=== PATIENT | female | born 1945 | race Caucasian/White ===

== ENCOUNTER 2020-04-10 08:02 | Outpatient (CLI) | payer MEDICARE, SELFPAY ==
--- NOTE | ~2020-04-10 | MM_ITS ---
EXAMINATION: MM screening [facility] BI w [facility] HISTORY: Screening mammogram. History of left breast cancer in 2000. TECHNIQUE: Craniocaudal and mediolateral oblique 3-D tomosynthesis images were obtained and synthetic 2-D images were generated. CAD analysis was submitted and interpreted. COMPARISON: 03/08/2015 BREAST PARENCHYMAL COMPOSITION: There are scattered areas of fibroglandular density. FINDINGS: Stable architectural distortion in the upper outer quadrant of the left breast. There is a new focal asymmetry in the outer aspect of the right breast posteriorly. IMPRESSION: 1. New focal right breast asymmetry laterally on CC view. 2. Additional mammographic views and possible breast ultrasound are recommended. BI-RADS Category 0: Incomplete: Needs additional imaging evaluation. Reviewed, dictated and finalized at location A. IMPRESSION: 1. New focal right breast asymmetry laterally on CC view. 2. Additional mammographic views and possible breast ultrasound are recommended . BI-RADS Category 0: Incomplete: Needs additional imaging evaluation.
== END 2020-04-10 08:03 | disposition home or self-care (01) ==
PROVIDERS: Visit Provider Internal Medicine Hematology & Oncology
DX: Z12.31 Encounter for screening mammogram for malignant neoplasm of breast (principal); R92.8 Other abnormal and inconclusive findings on diagnostic imaging of breast
CPT/HCPCS: 77063; 77067

== ENCOUNTER 2020-04-27 08:58 | Outpatient (CLI) | payer MEDICARE, SELFPAY ==
[2020-04-27 09:28] LABS: Basophils Percent Auto 0.4 % (0.2-1.2); Eosinophils Absolute Auto 0.2 K/mm3 (0-0.3); Eosinophils Percent Auto 2.9 % (0-4.4); Hematocrit 33.4 % (37.0-47.0); Hemoglobin 10.7 g/dL (12.0-15.0); Immature Granulocyte Absolute 0.02 K/mm3 (0.00-0.031); Immature Granulocyte Percent A 0.4 % (0-0.5); Lymphocytes Absolute Auto 1.71 K/mm3 (0.9-3.2); Lymphocytes Percent Auto 33.1 % (18.3-44.2); Mean Corpuscular Volume 96.8 fl (80-100); Mean Platelet Volume 9.3 fl (7.4-10.4); Monocytes Absolute Auto 0.4 K/mm3 (0.1-0.6); Monocytes Percent Auto 8.5 % (2.6-8.5); Neutrophils Absolute Auto 2.8 K/mm3 (1.3-6.7); Neutrophils Percent Auto 54.7 % (45.5-73.1); Platelet Count Result 265 k/mm3 (150-375); Red Blood Count 3.45 M/mm3 (4.2-5.4); Red Cell Distribution Width 12.4 % (11.5-14.5); White Blood Count 5.2 K/mm3 (4.5-10.0)
[2020-04-27 12:26] LABS: Cholesterol 168 mg/dL (0-200); HDL Direct 46 mg/dL; Iron 72 ug/dL (37-170); Triglycerides 114 mg/dL (<150)
[2020-04-27 12:29] LABS: Alanine Aminotransferase 21 U/L (4-35); Albumin Level 4.5 g/dL (3.5-5.1); Alkaline Phosphatase 107 U/L (38-126); Aspartate Amino Transferase 24 U/L (14-36); Bilirubin,Total 0.4 mg/dL (0.2-1.3); Blood Urea Nitrogen 17 mg/dL (7-17); Calcium 9.1 mg/dL (8.4-10.2); Carbon Dioxide 25 mmol/L (22-30); Chloride 104 mmol/L (98-107); Estimated Glomerular Filt Rate 54; Glucose 97 mg/dL (65-105); Potassium 4.2 mmol/L (3.4-5.0); Sodium 138 mmol/L (137-145)
[2020-04-27 12:38] LABS: LDL Cholesterol Direct 90 mg/dL
[2020-04-27 12:43] LABS: Percent Iron Saturation 22 % (20-50)
[2020-04-27 12:55] LABS: Free T4 Free Thyroxine 1.07 ng/mL (0.78-2.19)
[2020-04-27 12:59] LABS: Thyroid Stimulating Hormone 0.066 uIU/mL (0.465-4.680)
[2020-04-27 13:44] LABS: Folic Acid > 20.0 ng/mL (2.76->20); Vitamin B12 > 1000.0 pg/mL (239-931)
[2020-04-30 06:44] LABS: CA 27.29 21 U/mL (<38)
== END 2020-04-27 08:59 | disposition home or self-care (01) ==
PROVIDERS: Visit Provider Internal Medicine Hematology & Oncology
DX: C50.912 Malignant neoplasm of unspecified site of left female breast (principal); I82.4Y9 Acute embolism and thrombosis of unspecified deep veins of unspecified proximal lower extremity; D50.9 Iron deficiency anemia, unspecified; I10 Essential (primary) hypertension; E78.5 Hyperlipidemia, unspecified
CPT/HCPCS: 36415; 80053; 80061; 82607; 82728; 82746; 83540; 83550; 84439; 84443; 85025; 86300

== ENCOUNTER 2020-05-25 13:20 | Outpatient (CLI) | payer MEDICARE, SELFPAY ==
--- NOTE | ~2020-05-25 | MMUS_ITS ---
EXAMINATION: MM diagnostic mammo unilat RT, US breast RT limited HISTORY: Follow-up right breast asymmetries TECHNIQUE: Additional 3-D tomosynthesis images of the right breast were performed and synthetic 2-D i mages were generated. CAD analysis was submitted and interpreted. High resolution right breast ultras ound was performed. COMPARISON: Comparison to multiple prior studies sequentially, with oldest reviewed study dated 03/20. BREAST PARENCHYMAL COMPOSITION: Breast composed of scattered areas of fibroglandular density FINDINGS: MAMMOGRAPHIC FINDINGS: There are multiple persistent masses in the lateral aspect of the right breast which are partially ob scured by dense fibroglandular content. These masses are relatively radiolucent some which have fatty hilum centrally, most likely benign. ULTRASOUND: Right breast ultrasound: There are multiple simple and complicated cysts of the right breast. At 9:00, 4 cm from the nipple, t here is an oval hypoechoic mass with parallel orientation and echogenic hilum, most likely benign int ramammary lymph node measuring 7 mm. At 9:00, 2 cm from the nipple, there is an irregular shaped hypo echoic mass with antiparallel configuration and posterior shadowing. No internal vascularity. At 10:0 0, 4 cm from the nipple, there is an oval hypoechoic mass measuring 2 mm, likely benign. At 10:00, 4 cm from the nipple there is a 4 mm intramammary lymph node. At 12:00, 3 cm from the nipple, there are 2 adjacent cysts, largest measuring 6 mm. IMPRESSION: 1. Irregular shaped hypoechoic mass of the right breast at 9:00, 2 cm from the nipple with antiparall el orientation and posterior shadowing. Ultrasound-guided biopsy recommended. BI-RADS CATEGORY 4-SUSPICIOUS ABNORMALITY Reviewed, dictated and finalized at location A. IMPRESSION: 1. Irregular shaped hypoechoic mass of the right breast at 9:00, 2 cm from the nipple with antiparallel orientation and posterior shadowing. Ultrasound-guided biopsy recommended. BI-RADS CATEGORY 4-SUSPICIOUS ABNORMALITY
== END 2020-05-25 13:21 | disposition home or self-care (01) ==
PROVIDERS: Visit Provider Internal Medicine Hematology & Oncology
DX: R92.8 Other abnormal and inconclusive findings on diagnostic imaging of breast (principal)
CPT/HCPCS: 76642; 77065

== ENCOUNTER 2020-06-01 09:01 | Outpatient (CLI) | payer MEDICARE, SELFPAY ==
--- NOTE | ~2020-06-01 | US_ITS ---
EXAMINATION: US GUIDED NEEDLE BIOPSY DATE: 06/01/2020 10:55 CDT INDICATION: Irregular hypoechoic mass of right breast at 9:00 2 cm from nipple TECHNIQUE AND FINDINGS: The risks and potential benefits of the procedure were discussed with the patient, and written inform ed consent was obtained. Timeout procedure was performed. After sterile preparation of the right jacqueline st, 1% lidocaine was utilized for local anesthesia. A 14G spring-loaded biopsy gun needle was advanced to the edge of the region of interest from a later al medial approach utilizing sonographic guidance. A total of 2 tissue core samples were obtained th rough the lesion. An Inrad tissue marker clip was then placed at the biopsy site. Hemostasis was ach ieved by manual compression. A sterile bandage was applied. The patient tolerated procedure well and there was no evidence of immediate complication. The patien t was given verbal instructions prior to departing from the department. A two view mammogram was perf ormed to document tissue marker clip placement. The tissue samples were submitted to surgical patholo gy for histologic analysis. IMPRESSION: 1. Successful ultrasound guided biopsy of right 9:00 breast mass with biopsy marker placement. Jones montes refer to pathology report for histologic analysis. Reviewed, dictated and finalized at Location A. Reviewed, dictated and finalized at location A. IMPRESSION: 1. Successful ultrasound guided biopsy of right 9:00 breast mass with biopsy m arker placement. Please refer to pathology report for histologic analysis.
--- NOTE | ~2020-06-01 | MM_ITS ---
MM post biopsy invasive RT DATE: 06/01/2020 10:28 INDICATION: Post ultrasound-guided biopsy right mammogram TECHNIQUE: Digital ML and cc views of right breast COMPARISON: 06/01/2020 right ultrasound-guided breast biopsy FINDINGS: A radiopaque biopsy marker is present in the mid lateral subareolar area at approximately 9 :00 position IMPRESSION: Status post ultrasound-guided biopsy at 9:00 Reviewed, dictated and finalized at Location A. Reviewed, dictated and finalized at location A.
== END 2020-06-01 09:02 | disposition home or self-care (01) ==
PROVIDERS: Visit Provider Internal Medicine Hematology & Oncology
DX: R92.8 Other abnormal and inconclusive findings on diagnostic imaging of breast (principal)
CPT/HCPCS: 19083; 88305

== ENCOUNTER 2020-08-07 10:02 | Outpatient (CLI) | payer MEDICARE, SELFPAY ==
--- NOTE | ~2020-08-07 | XR_ITS ---
EXAMINATION: XR chest 2V DATE: 08/07/2020 11:42 INDICATION: Preoperative evaluation with risk factor of hypertension. Gastroesophageal reflux disease .. TECHNIQUE: PA and lateral views of the chest were obtained. COMPARISON: None FINDINGS: The lungs are clear with no focal airspace opacities, pulmonary edema, pleural effusion or pneumothor ax. The cardiomediastinal silhouette is normal. Cholecystectomy clips in right upper quadrant. Left b reast is smaller than the right suggesting prior excisional biopsy with multiple surgical clips at th e left axilla consistent with associated axillary lymph node dissection. Mild scattered degenerative skeletal changes. IMPRESSION: 1. No acute cardiopulmonary disease. Reviewed, dictated and finalized at location A.
[2020-08-07 11:43] LABS: Basophils Percent Auto 0.1 % (0.2-1.2); Eosinophils Absolute Auto 0.1 K/mm3 (0-0.3); Eosinophils Percent Auto 0.8 % (0-4.4); Hematocrit 34.6 % (37.0-47.0); Hemoglobin 11.2 g/dL (12.0-15.0); Immature Granulocyte Absolute 0.03 K/mm3 (0.00-0.031); Immature Granulocyte Percent A 0.4 % (0-0.5); Lymphocytes Absolute Auto 1.79 K/mm3 (0.9-3.2); Mean Corpuscular HGB Conc 32.4 g/dl (32-36); Mean Corpuscular Hemoglobin 31.6 pg (26-34); Mean Corpuscular Volume 97.7 fl (80-100); Mean Platelet Volume 9.4 fl (7.4-10.4); Monocytes Absolute Auto 0.5 K/mm3 (0.1-0.6); Monocytes Percent Auto 7.3 % (2.6-8.5); Neutrophils Absolute Auto 4.7 K/mm3 (1.3-6.7); Neutrophils Percent Auto 66.4 % (45.5-73.1); Platelet Count Result 285 k/mm3 (150-375); Red Blood Count 3.54 M/mm3 (4.2-5.4); White Blood Count 7.2 K/mm3 (4.5-10.0)
[2020-08-07 11:54] LABS: Albumin Level 4.8 g/dL (3.5-5.1); Anion Gap 11 mmol/L (8-16); Blood Urea Nitrogen 14 mg/dL (7-17); Calcium 9.7 mg/dL (8.4-10.2); Carbon Dioxide 29 mmol/L (22-30); Chloride 99 mmol/L (98-107); Estimated Glomerular Filt Rate 48; Glucose 100 mg/dL (65-105); Sodium 139 mmol/L (137-145)
[2020-08-07 12:11] LABS: Hemoglobin A1C 5.6 % (<5.7)
[2020-08-07 12:37] LABS: Urine Cotinine NEGATIVE
== END 2020-08-07 10:03 | disposition home or self-care (01) ==
LOC: ANHSURGERY 10:04
PROVIDERS: Visit Provider Orthopaedic Surgery
DX: Z01.812 Encounter for preprocedural laboratory examination (principal); Z01.811 Encounter for preprocedural respiratory examination; M16.11 Unilateral primary osteoarthritis, right hip; Z85.3 Personal history of malignant neoplasm of breast
CPT/HCPCS: 71046; 80048; 80307; 82040; 83036; 85025; 87070

== ENCOUNTER 2020-08-21 01:23 | Outpatient (CLI) | payer MEDICARE, SELFPAY ==
[2020-08-21 17:41] LABS: SARS-CoV-2 RNA PCR Negative
== END 2020-08-21 01:24 | disposition home or self-care (01) ==
LOC: ANHCOVIDDT 01:23
PROVIDERS: Visit Provider Orthopaedic Surgery
DX: Z01.812 Encounter for preprocedural laboratory examination (principal); Z20.828 Contact with and (suspected) exposure to other viral communicable diseases
CPT/HCPCS: 87635; C9803; U0003

== ENCOUNTER 2020-08-23 01:52 | Day surgery (SDC) | payer MEDICARE, SELFPAY ==
[2020-08-07 10:09] VITALS: BMI 29.3
[2020-08-07 11:05] VITALS: BP 138/66; PULSE 83; RESP 16; TEMP 36.8; O2SAT 98
--- NOTE | 2020-08-21 13:11 | PM.IMHP ---
H&P: HPI History of Present Illness Date/Time: 08/21/20 13:11 <ARTEMIO Regan - Last Filed: 08/21/20 13:23> Chief complaint: OA Right Hip <ARTEMIO Regan - Last Filed: 08/21/20 13:23> Narrative: Rosaura Godoy is a 74 year old female od Dr Ball who presents today for an anterior right total hip arthroplasty. She has been having progressive worsening pain and symptoms coming severely right hip. Pain is predominantly in her groin well the anterior lateral. This point she is not taking any anti-inflammatories. She has history of Crohn's disease has also been told past that she has chronic kidney disease and therefore avoids anti-inflammatories. She has reached a point where she is miserable on a daily basis and feels she would rather proceed with total hip arthroplasty at this point rather continue nonsurgical options. <ARTEMIO Regan - Last Filed: 08/21/20 13:23> Review of Systems Review of Systems: All systems reviewed & are unremarkable except as noted in HPI and below <ARTEMIO Regan - Last Filed: 08/21/20 13:23> [facility] Past Medical History Medical History: Medical History (Updated 08/22/20 @ 13:31 by Max Balbuena MD) Anemia Arthritis BMI 27.0-27.9,adult BMI 28.0-28.9,adult Crohn's disease Family hx of colon cancer GERD (gastroesophageal reflux disease) H/O blood clots History of Mohs micrographic surgery for skin cancer Hx of adenomatous colonic polyps Hx of breast cancer Hx of skin malignancy Hyperlipidemia Hypertension Osteoarthritis of right hip Osteopenia <ARTEMIO Regan - Last Filed: 08/21/20 13:23> Surgical History Surgical History: Surgical History History of lumpectomy of left breast History of tonsillectomy and adenoidectomy Hx of cholecystectomy Hx of colonoscopy <ARTEMIO Regan - Last Filed: 08/21/20 13:23> Family History Family History: Family History Mother Heart disease Father Hypertension Cancer Grandparent Diabetes mellitus Heart disease <ARTEMIO Regan - Last Filed: 08/21/20 13:23> Social History Social History: Social History Smoking status: Never smoker Additional smoking assessment comments: DENIES ANY FORM OF TOBACCO/NICOTINE USE Alcohol intake: current Substance use: never Living arrangements: with family Spiritual care concerns: No <ARTEMIO Regan - Last Filed: 08/21/20 13:23> Meds Home Medications and Allergies Home medications: Home Medications Medication Instructions Recorded Confirmed Type acidophilus-pectin, citrus 1 cap PO HS 10/25/19 08/23/20 History [Acidophilus Probiotic] aspirin [Aspir-81] 81 mg PO HS 10/25/19 08/23/20 History atorvastatin 40 mg PO DAILY 10/25/19 08/23/20 History biotin 10,000 mcg PO DAILY 10/25/19 08/23/20 History coenzyme Q10 [Co Q-10] 200 mg PO DAILY 10/25/19 08/23/20 History dexlansoprazole [Dexilant] 60 mg PO DAILY 10/25/19 08/23/20 History glucos sul 8LDs-zrv-npnzw-C-Mn 1 cap PO BID 10/25/19 08/23/20 History [Glucosamine Chondroitin] ibzyzsps-ahi-fitw-FA-lutein 1 tablet PO DAILY 10/25/19 08/23/20 History [Multivitamin Women 50 Plus] psyllium husk [Fiber-Caps 0.52 g PO DAILY MDD 5 10/25/19 08/23/20 History (psyllium husk)] valsartan-hydrochlorothiazide 1 tablet PO DAILY 10/25/19 08/23/20 History fluticasone propionate 50 1 spray NASAL .prn PRN ml 03/23/20 08/23/20 History mcg/actuation nasal spray,suspension <ARTEMIO Regan - Last Filed: 08/21/20 13:23> Allergies/Adverse reactions: Allergies Allergy/AdvReac Type Severity Reaction Status Date / Time ibuprofen Allergy Mild CROHN'S Verified 08/23/20 10:24 FLARE UP naproxen [From Aleve] Allergy Mild CROHN'S Verified 08/23/20 10:24 FLARE UP adhesive tape Allergy Unknown RASH
--- NOTE | 2020-08-22 13:30 | WPDANESEPPF ---
Anes - Initial Pre Proc Eval Procedure: Operation Date: 08/23/20 12:00 Proposed Procedures p Right Total Hip Arthroplasty, Direct Anterior Approach - Weston Degroot MD Date/Time: 08/22/20 13:30 Surgeon: Weston Degroot MD Pre Op Diagnosis: OA Right Hip Patient Data Age: 74 Gender: F Height: 1.55 m Weight: 70.5 kg Last Vital Signs Temp 36.8 C 08/07/20 11:05 Pulse 83 08/07/20 11:05 Resp 16 08/07/20 11:05 BP 138/66 08/07/20 11:05 Pulse Ox 98 08/07/20 11:05 Allergies Allergy/AdvReac Type Severity Reaction Status Date / Time ibuprofen Allergy Mild CROHN'S Verified 08/23/20 10:24 FLARE UP naproxen [From Aleve] Allergy Mild CROHN'S Verified 08/23/20 10:24 FLARE UP adhesive tape Allergy Unknown RASH Verified 08/23/20 10:24 bacitracin Allergy Unknown RASH Verified 08/23/20 10:24 codeine Allergy Unknown FACIAL Verified 08/23/20 10:24 SWELLING gramicidin D Allergy Unknown RASH Verified 08/23/20 10:24 neomycin Allergy Unknown Rash Verified 08/23/20 10:24 [From Neosporin ([id number])] polymyxin B Allergy Unknown RASH Verified 08/23/20 10:24 Home Medications Medication Instructions Recorded Confirmed Type acidophilus-pectin, citrus 1 cap PO HS 10/25/19 08/23/20 History [Acidophilus Probiotic] aspirin [Aspir-81] 81 mg PO HS 10/25/19 08/23/20 History atorvastatin 40 mg PO DAILY 10/25/19 08/23/20 History biotin 10,000 mcg PO DAILY 10/25/19 08/23/20 History coenzyme Q10 [Co Q-10] 200 mg PO DAILY 10/25/19 08/23/20 History dexlansoprazole [Dexilant] 60 mg PO DAILY 10/25/19 08/23/20 History glucos sul 4MJo-whn-evtor-C-Mn 1 cap PO BID 10/25/19 08/23/20 History [Glucosamine Chondroitin] rslivdcv-mbl-ctqu-FA-lutein 1 tablet PO DAILY 10/25/19 08/23/20 History [Multivitamin Women 50 Plus] psyllium husk [Fiber-Caps 0.52 g PO DAILY MDD 5 10/25/19 08/23/20 History (psyllium husk)] valsartan-hydrochlorothiazide 1 tablet PO DAILY 10/25/19 08/23/20 History fluticasone propionate 50 1 spray NASAL .prn PRN ml 03/23/20 08/23/20 History mcg/actuation nasal spray,suspension Other Studies: Patient did have a stress test done early August which showed no diagnostic ST changes normal myocardial perfusion injection fraction of 74% she did have an echo done which showed normal left ventricular systolic function, ejection fraction was rated 65%. Her nasal swab was negative. Her creatinine preoperatively is 1.1 missed her Chem panel is within normal limits. Hemoglobin is 11.2 and platelets were 285 Patient hx anesthesia problems: none Family hx anesthesia problems: none PMFSH Past Medical History Medical History (Updated 08/22/20 @ 13:31 by Max Balbuena MD) Anemia Arthritis BMI 27.0-27.9,adult BMI 28.0-28.9,adult Crohn's disease Family hx of colon cancer GERD (gastroesophageal reflux disease) H/O blood clots History of Mohs micrographic surgery for skin cancer Hx of adenomatous colonic polyps Hx of breast cancer Hx of skin malignancy Hyperlipidemia Hypertension Osteoarthritis of right hip Osteopenia Surgical History Surgical History History of lumpectomy of left breast History of tonsillectomy and adenoidectomy Hx of cholecystectomy Hx of colonoscopy Family History Family History Mother Heart disease Father Hypertension Cancer Grandparent Diabetes mellitus Heart disease Social History Social History Smoking status: Never smoker Additional smoking assessment comments: DENIES ANY FORM OF TOBACCO/NICOTINE USE Alcohol intake: current Substance use: never Living arrangements: with family Spiritual care concerns: No Anes - Eval Final PreProcedure Day of Procedure 08/22/20 13:30 Patient weight: obese Heart: regular rate and rhythm Lungs: clear to auscultation and nor
[2020-08-23] VITALS (9 sets, daily range): BP systolic 100–159; BP diastolic 41–74; PULSE 52–95; RESP 10–18; TEMP 36.1–36.8; O2SAT 92–100; BMI 29.6
--- NOTE | ~2020-08-23 | XR_ITS ---
EXAMINATION: XR surgery orthopedic DATE: 08/23/2020 15:36 INDICATION: Right hip arthroplasty TECHNIQUE: 3 views right. 49 seconds of fluoroscopy. 2 fluoroscopic images. FINDINGS: There is a right total hip arthroplasty in expected position. Subcutaneous gas with soft t issue swelling are consistent with recent surgery. IMPRESSION: 1. Recent right total hip arthroplasty. Reviewed, dictated and finalized at location B.
--- NOTE | ~2020-08-23 | XR_ITS ---
EXAMINATION: XR hip RT 1V w AP pelvis DATE: 08/23/2020 15:51 INDICATION: Right hip arthroplasty. Postop. TECHNIQUE: An anteroposterior view of the pelvis and single view of right hip were obtained. COMPARISON: Pelvis and right hip radiographs 03/23/2020 FINDINGS: There is a total right hip arthroplasty in near-anatomic alignment. No fracture. There is m oderate left hip osteoarthritis. A surgical clip overlies the pelvis. There is gas in the soft tissue s around right hip, consistent with recent surgery. A surgical drain is noted. IMPRESSION: 1. Total right hip arthroplasty in near-anatomic alignment. 2. Moderate left hip osteoarthritis. Reviewed, dictated and finalized at location A.
[2020-08-23] MEDS: LACTATED RINGERS 1,000 ML 30 ML IV CONT ×2 (10:52→15:53)
[2020-08-23] MEDS: TRANEXAMIC ACID 1,000MG/ISO100 1,000 MG/100 ML BAG 200 MG IVPB (11:07)
[2020-08-23] MEDS: ACETAMINOPHEN 500 MG TABLET 1000 MG PO ×2 (11:08→17:36)
--- NOTE | 2020-08-23 12:01 | WPDHPUPDATE1 ---
History and Physical Update Update Date/Time: 08/23/20 12:01 History and Physical has been reviewed, including an updated exam of the patient. There are NO changes in the patient's condition. Risks, benefits, and alternatives have been discussed and questions answered. Patient agrees to proceed with procedure.
[2020-08-23] MEDS: ceFAZolin 2 GM/D5W 50 ML 2 GM/50 ML BAG IVPB (12:07)
[2020-08-23] MEDS: ceFAZolin SODIUM 1 GM VIAL 3 GM IRRIGATION (12:55)
[2020-08-23] MEDS: KETOROLAC 15 MG/ML VIAL (*BKC) IV PUSH (15:20)
[2020-08-23] MEDS: ceFAZolin SODIUM 1 GM VIAL IV PUSH (15:21)
--- NOTE | 2020-08-23 15:32 | PM.PROC ---
Procedure Note - Detailed Date of procedure: 08/23/20 Pre-op diagnosis: OA Right Hip Procedure performed: Direct anterior approach right total hip arthroplasty Description of procedure: patient was brought to the operating room and general anesthesia was administered. She received 2 g of Ancef weight based vancomycin and 1 g of tranexamic acid preoperatively. Soft roll was placed on the feet and the boots applied and SCDs applied to the legs and [facility] hip prepped draped usual fashion. A 10 cm longitudinal incision was made over the anterolateral hip. Dissection was carried down to the subcutaneous fat to the fascia over the tensor fascia brett which was longitudinally incised and elevated off the anterior 1/2 the TFL muscle. Interval between TFL and rectus femoris was developed. Branching vessels of ascending branch of lateral spinal circumflex vessels were isolated and ligated with suture and divided. The capsule was isolated and a capsulotomy performed. Femoral neck osteotomy was made according to preoperative templating. The femoral head measured 47 mm in diameter. The acetabulum was exposed labrum excised. The leg was a externally rotated extended and we incised the interval between the piriformis tendon and the conjoined tendon which allowed the piriformis to flip posteriorly and the conjoined tendon Tworecess somewhat. the tip of the lateral capsular flap was excised. With the leg back in the horizontal position the acetabulum was exposed. We medialized with a 44 Reamer and we reamed up to 47 mm which did not quite get peripheral contact. The 49 mm Reamer did achieve peripheral contact. There were no defects in the rim of the acetabulum and we had complete coverage of the trial. We chose the 50 mm pinnacle shell and try to impact this at 40? of abduction but I could not get it to seat the last 4 or 5 mm. Therefore we reamed the acetabulum gently with the 50 Reamer not quite achieving full seating. We then impacted the 50 mm shell again after irrigation of the shell and removal of debris and this time it sat fully with an excellent press fit. It was placed at 40? of abduction and anteversion such that the anterior shell was a mm under the anterior wall the posterior shell 2 mm proud. A single screw was placed into the ilium with good purchase and the 32 mm inner diameter liner was fully seated. Next the leg was externally rotated extended and we broached up to a size 3 Actis. we trialed with the standard neck +5 according to the preoperative template and this gave us leg lengths that were approximately equal or matching our preoperative plan to lengthen about 3 mm or 4 mm. She had [id number] superior medial osteoarthritis. We found acceptable stability also. We calcar planed to this level and then carefully inspected the stability of the broach and there was a little wiggle. We could see on the intraoperative x-ray also that we could go up 1 size so we went up to the size 4 and this was seated to the level of the neck cut. The 4 has a neck that has 2 mm greater offset and 1 mm greater height and on trialing with a +5 our offset looked good but we were a little bit high I felt and a little bit tighter than necessary. We countersunk another 2 mm and this matched our preoperative plan better on x-ray and gave us appropriate stability with ample shock but good stability. I felt that the +1 would be too loose. Satisfied with this we calcar planed again and placed the size 4 standard offset neck as stem which came to rest on the calcar with full seating and excellent torsional stability. We cleaned and dried the trunnion and impacted the 5 mm x 32 mm ceramic head. The wound was irrigated with antibiotic solution hip was reduced stability and soft tissue tension reassessed and found to be appropriate. The anterior capsular flap was allowed to rest in situ. The fascia over the tensor fascia brett repaired wi
[2020-08-23] MEDS: fentaNYL CITRATE INJ (*CRX) 100 MCG/2 ML VIAL 25 MCG IV PUSH ×3 (16:02→16:26)
--- NOTE | 2020-08-23 17:00 | PC.NURSE ---
This patient, Rosaura Godoy, was admitted to 2 Medical Room 241-01. Patient/family oriented to hospital policies and general routines including ID bracelet, bed and alarms, visiting hours, pain management, procedures, bathroom and other care routines, personal items, smoking policy, room service/diet, and visiting hours. Information on how to activate the Rapid Response Team has been discussed. Patient/Family are encouraged to report perceived risks to care and to ask questions if they do not understand what they are told or what they should do.
--- NOTE | 2020-08-23 17:28 | PC.NURSE ---
Call to Dr. Degroot in regards to the patient having an allergy to Codeine, which is prompting a warning for giving the patient her scheduled Oxycodone. This nurse informed Dr. Degroot that the patient states she has taken Oxycodone before with no issues but this nurse is still required to contact the prescribing physician to requests an approval to continue with the medication. Per Dr. Degroot okay to go ahead and give the medication to the patient and monitor for any signs of allergic reaction.
[2020-08-23] MEDS: oxyCODONE HCL (*CRX) 2.5 MG TAB IR PO ×2 (17:34→20:40)
[2020-08-23] MEDS: ONDANSETRON INJ 4 MG/2 ML VIAL IV PUSH (18:09)
--- NOTE | 2020-08-23 20:30 | WPDCN ---
Assessment and Plan Assessment and plan (1) Arthritis of right hip: Code(s): M16.11 - Unilateral primary osteoarthritis, right hip Status: Acute (2) Hypertension: Code(s): I10 - Essential (primary) hypertension Status: Acute (3) Hyperlipidemia: Code(s): E78.5 - Hyperlipidemia, unspecified Status: Acute (4) History of DVT of lower extremity: Code(s): Z86.718 - Personal history of other venous thrombosis and embolism Status: Acute (5) Gastroesophageal reflux disease: Code(s): K21.9 - Gastro-esophageal reflux disease without esophagitis Status: Acute Additional Plan Postoperative day 0, status post right total hip arthroplasty for right hip osteoarthritis. Wound care, pain control, and DVT prophylaxis will be deferred to the primary service. It is noted that she does have a prior history of DVT but that was around the time that she was diagnosed with breast cancer. Postoperative nausea and dry heaves have improved; antiemetics are available. Blood pressures were reviewed and they are reasonably well controlled. Her home medications will be reviewed and resumed as appropriate. Check hemoglobin and hematocrit in a.m. Thank you for allowing us to participate in this patient's care. Please do not hesitate to contact us with any questions. We will follow with you. Supervising physician for this medical consultation is Dr. Sukhdev Gore HPI Data of Consult Date/Time: 08/23/20 20:30 Requesting Physician: Weston Degroot MD Primary Care Provider: Amanda Ball Consult Narrative Narrative: Rosaura Godoy is a pleasant 74-year-old female whom the hospitalist service has been consulted for management of her medical conditions postoperatively. She has had longstanding pain in her right hip, not amenable to conservative outpatient treatment, and thus she elected for replacement today. Her surgery was performed under general anesthesia with no immediate complications documented and an estimated blood loss of 150 mL. She reports postoperative nausea and dry heaves and has not had much in the way of oral intake however she has been trying to drink some water. She has only mild discomfort in the right hip but nothing significant or unmanageable. She denies paresthesias, skin color, and temperature changes distal to the surgical site. She also denies postoperative fever, chills, chest pain, and shortness of breath. Her medical history significant for hypertension which she states is well controlled on her home medications. She is on also on atorvastatin for hyperlipidemia. She was diagnosed with Crohn's disease in mid life, and has not had a flare for about 20 years or more. She has a history of DVT in the left lower extremity in 2000, around the time she was diagnosed with left-sided breast cancer. No recurrence of DVT or cancer since that time. Review of Systems Review of Systems: Narrative: Twelve systems were reviewed with pertinent positives and negatives as per HPI. She wears corrective lenses. No fever, chills, or sweats. No recent cold or flu symptoms. She denies exposure to those positive for COVID-19. No chest pain or shortness of breath. She has occasional diarrhea. No constipation. No dysuria. Except as documented, all other systems were reviewed and are negative. [facility] Past Medical History Medical History (Updated 08/23/20 @ 20:57 by Reene Palafox PA-C) Anemia Arthritis Basal cell carcinoma of skin Crohn's disease Gastroesophageal reflux disease History of adenomatous polyp of colon History of left breast cancer (~1999) Status post lumpectomy, chemotherapy, and radiation. Hyperlipidemia Hypertension Left leg DVT (~2000) Osteoarthritis of right hip Osteopenia Surgical History Surgical History (Updated 08/23/20 @ 20:50 by Renee Palafox PA-C) History of cholecystectomy History of colonoscopy History of lumpectomy of left breas
[2020-08-23] MEDS: FAMOTIDINE 20 MG TABLET PO (20:40)
[2020-08-24] VITALS: BP 117/48; PULSE 70; RESP 18; TEMP 37.3; O2SAT 93
[2020-08-24] MEDS: ACETAMINOPHEN 500 MG TABLET 1000 MG PO ×4 (00:58→16:37)
[2020-08-24] MEDS: oxyCODONE HCL (*CRX) 2.5 MG TAB IR PO ×5 (00:58→16:37)
[2020-08-24 04:00] VITALS: BP 118/73; PULSE 63; RESP 20; TEMP 37.6; O2SAT 95
[2020-08-24 05:35] LABS: Hematocrit 25.5 % (37.0-47.0); Hemoglobin 8.2 g/dL (12.0-15.0); Immature Granulocyte Absolute 0.05 K/mm3 (0.00-0.031); Immature Granulocyte Percent A 0.5 % (0-0.5); Lymphocytes Absolute Auto 0.95 K/mm3 (0.9-3.2); Lymphocytes Percent Auto 9.2 % (18.3-44.2); Mean Corpuscular HGB Conc 32.2 g/dl (32-36); Mean Corpuscular Hemoglobin 31.3 pg (26-34); Mean Corpuscular Volume 97.3 fl (80-100); Mean Platelet Volume 9.7 fl (7.4-10.4); Monocytes Absolute Auto 0.8 K/mm3 (0.1-0.6); Monocytes Percent Auto 7.2 % (2.6-8.5); Neutrophils Absolute Auto 8.6 K/mm3 (1.3-6.7); Neutrophils Percent Auto 83.1 % (45.5-73.1); Platelet Count Result 219 k/mm3 (150-375); Red Blood Count 2.62 M/mm3 (4.2-5.4); White Blood Count 10.4 K/mm3 (4.5-10.0)
[2020-08-24 05:50] LABS: Alanine Aminotransferase 19 U/L (4-35); Albumin Level 3.2 g/dL (3.5-5.1); Alkaline Phosphatase 77 U/L (38-126); Anion Gap 7 mmol/L (8-16); Aspartate Amino Transferase 33 U/L (14-36); Bilirubin,Total 0.4 mg/dL (0.2-1.3); Blood Urea Nitrogen 21 mg/dL (7-17); Calcium 8.4 mg/dL (8.4-10.2); Carbon Dioxide 25 mmol/L (22-30); Chloride 99 mmol/L (98-107); Estimated CRCL calculation 35 ml/min; Estimated Glomerular Filt Rate 48; Glucose 114 mg/dL (65-105); Potassium 4.3 mmol/L (3.4-5.0); Sodium 131 mmol/L (137-145)
[2020-08-24 06:31] LABS: Vitamin D 25 Hydroxy 58.9 ng/mL
--- NOTE | 2020-08-24 07:10 | PM.PNORT ---
Progress Note: A&P Additional Plan POD 1 alert avss, pain is well controlled .pt is tolerating low dose oxycodone, wd-dry drain is out, pt was up to chair last night, she will work with PT today,plan to send home later today, hgb-8.2, Subjective Subjective Date/Time Seen: 08/24/20 07:10 Objective Data Vital Signs Vital Signs: Vital Signs - 24 hr 08/23/20 10:34 08/23/20 15:55 08/23/20 16:10 Temperature 36.4 C L 36.1 C L Pulse Rate 95 81 64 Respiratory Rate 18 10 L 12 Blood Pressure 159/74 H 105/48 L 100/41 L Pulse Oximetry 98 100 100 08/23/20 16:25 08/23/20 17:00 08/23/20 17:15 Temperature 36.8 C 36.3 C L Pulse Rate 67 64 63 Respiratory Rate 10 L 16 18 Blood Pressure 118/53 L 113/46 L 116/41 L Pulse Oximetry 92 94 96 08/23/20 17:45 08/23/20 18:32 08/23/20 20:00 Temperature 36.3 C L 36.2 C L 36.3 C L Pulse Rate 52 L 90 93 Respiratory Rate 16 18 18 Blood Pressure 120/42 L 115/49 L 119/55 L Pulse Oximetry 98 95 93 08/24/20 00:00 08/24/20 04:00 Temperature 37.3 C 37.6 C Pulse Rate 70 63 Respiratory Rate 18 20 Blood Pressure 117/48 L 118/73 Pulse Oximetry 93 95 Intake/Output Intake/Output: Intake & Output 08/21/20 08/22/20 08/23/20 08/24/20 23:59 23:59 23:59 23:59 Intake Total 450 250 Output Total 450 Balance 450 -200 Meds/Results Medications: Active Medications Generic Name Dose Route Start Last Admin Trade Name Freq PRN Reason Stop Dose Admin Acetaminophen 1,000 mg 08/23/20 18:00 08/24/20 06:21 Acetaminophen 500 Mg Tablet PO 1,000 mg Q6HR JONI Administration Al Hydrox/Mg Hydrox/Simethicone 30 ml 08/23/20 16:47 Mag Hydrox/Al Hydrox/Simeth 30 Ml Udc PO Q6H PRN Indigestion Apixaban 2.5 mg 08/24/20 09:00 Apixaban 2.5 Mg Tablet PO Q12HR [facility] Atorvastatin Calcium 40 mg 08/24/20 09:00 Atorvastatin 40 Mg Tablet PO DAILY [facility] Famotidine 20 mg 08/23/20 21:00 08/23/20 20:40 Famotidine 20 Mg Tablet PO 20 mg Q12HR JONI Administration Fluticasone Propionate 1 spray 08/23/20 21:03 Fluticasone Propionate 0.05% Na Spr 16 Gm Btl (*Bkc) NASAL Q12H PRN Allergy Symptoms Hydrochlorothiazide 12.5 mg 08/24/20 09:00 Hydrochlorothiazide 12.5 Mg Capsule PO QAM JONI Hydroxyzine HCl 50 mg 08/23/20 16:47 Hydroxyzine Hcl 25 Mg Tablet PO Q4H PRN Itching Vancomycin HCl 1,000 mg in 250 mls @ 250 mls/hr 08/23/20 23:00 08/24/20 00:35 Vancomycin 1,000 Mg/D5w 250 Ml IVPB 08/24/20 11:59 Infused Q12H [facility] Infusion Cefazolin Sodium 1 gm in 50 mls @ 100 mls/hr 08/23/20 20:00 08/24/20 04:49 Ancef 1 Gm/D5w 50 Ml Pm IVPB 08/24/20 12:29 100 mls/hr Q8H JONI Administration Magnesium Hydroxide 30 ml 08/23/20 16:47 Magnesium Hydroxide Susp 30 Ml Udc PO BID PRN Constipation Naloxone HCl 0.1 mg 08/23/20 16:47 Naloxone Hcl 0.4 Mg/Ml Vial IV PUSH Q2M PRN Opiate Reversal Non-Formulary Medication 0.52 gm 08/24/20 09:00 Psyllium Husk [Fiber-Caps (Psyllium Husk)] PO 09/23/20 09:01 DAILY [facility] Ondansetron HCl 4 mg 08/23/20 16:47 08/23/20 18:09 Ondansetron Inj 4 Mg/2 Ml Vial IV PUSH 4 mg Q4H PRN Administration Nausea And Vomiting Oxycodone HCl 2.5 mg 08/23/20 17:00 08/24/20 04:49 Oxycodone Hcl (*Crx) 2.5 Mg Tab Ir PO 2.5 mg Q4HR JONI Administration Oxycodone HCl 2.5 mg 08/23/20 16:47 Oxycodone Hcl (*Crx) 2.5 Mg Tab Ir PO Q4H PRN Pain Rated 4-6 Pantoprazole Sodium 40 mg 08/24/20 09:00 Pantoprazole 40 Mg Tablet PO QAM [facility] Polyethylene Glycol 17 gm 08/24/20 09:00 Polyethylene Glycol 3350 17 Gm Powd.Pack PO QAM [facility] Senna/Docusate Sodium 2 tab 08/23/20 17:00 08/23/20 17:15 Senna/Docusate Sodium Tablet PO Not Given BID [facility] Valsartan 80 mg 08/24/20 09:00 Valsartan 80 Mg Tablet PO QAM [facility] Radiology Results: ITS Impressions Intraoperative X-Ray 08/23/20 15:39 IMPRESS
--- NOTE | 2020-08-24 07:16 | PM.DS ---
DS: Admitting Diagnosis Admitting Diagnosis Admitting Diagnosis: OA Right Hip DS: Summary Time Spent with Patient Time attestation: 74-year-old female who underwent right anterior total hip arthroplasty on 08/23. He underwent the procedure without any complications. Postoperatively she has been afebrile vital signs stable neurovascularly she is. Her wound is dry. Her drain is out. She did get up with a day of surgery to the chair. She is weight-bearing as tolerated, and she will work with therapy on postop day 1 as far as ambulation and learning hip precautions. Her pain is well controlled with scheduled Tylenol as well as 2.5 oxycodone. We are avoiding Celebrex on her due to her kidney dysfunction. she is on Eliquis for DVT prophylaxis. She will be discharged home on 08/24. Date of discharge her hemoglobin was 8.2, her preop was 11.1 and some of this will be hemodilution all. Patient is tolerating the anemia, she is having no shortness of breath dizziness when standing. Patient was advised when she goes home she has any questions or concerns call the office otherwise is her At her appointed visits. DS: Data Data Completed and Pending Labs on day of discharge: Labs from last 24 hours 08/24/20 08/24/20 08/24/20 04:46 04:46 04:46 WBC 10.4 H RBC 2.62 L Hgb 8.2 L D Hct 25.5 L MCV 97.3 MCH 31.3 MCHC 32.2 RDW 12.0 Plt Count 219 MPV 9.7 Immature Gran % (Auto) 0.5 Neut % (Auto) 83.1 H Lymph % (Auto) 9.2 L [place] % (Auto) 7.2 Eos % (Auto) 0.0 Baso % (Auto) 0.0 L Lymph # (Auto) 0.95 [place] # (Auto) 0.8 H Eos # (Auto) 0.0 Baso # (Auto) 0.0 Abs Immat Gran (auto) 0.05 H Absolute Neuts (auto) 8.6 H Absolute Nucleated RBC 0.0 Nucleated RBC % 0.0 Sodium 131 L Potassium 4.3 Chloride 99 Carbon Dioxide 25 Anion Gap 7 L BUN 21 H Creatinine 1.10 H Estim Creat Clear Calc 35 Estimated GFR 48 L Glucose 114 H Calcium 8.4 Total Bilirubin 0.4 Direct Bilirubin 0.0 AST 33 ALT 19 Alkaline Phosphatase 77 Total Protein 6.0 L Albumin 3.2 L Vitamin D 25-Hydroxy 58.9 Blood Type Antibody Screen 08/23/20 10:55 WBC RBC Hgb Hct MCV MCH MCHC RDW Plt Count MPV Immature Gran % (Auto) Neut % (Auto) Lymph % (Auto) [place] % (Auto) Eos % (Auto) Baso % (Auto) Lymph # (Auto) [place] # (Auto) Eos # (Auto) Baso # (Auto) Abs Immat Gran (auto) Absolute Neuts (auto) Absolute Nucleated RBC Nucleated RBC % Sodium Potassium Chloride Carbon Dioxide Anion Gap BUN Creatinine Estim Creat Clear Calc Estimated GFR Glucose Calcium Total Bilirubin Direct Bilirubin AST ALT Alkaline Phosphatase Total Protein Albumin Vitamin D 25-Hydroxy Blood Type O Positive Antibody Screen Negative Discharge Plan Discharge Patient Disposition: Home, Self-Care Discharge Instructions: DENNIS MYERS M.D [facility], [address] [address] POST-OPERATIVE DISCHARGE INSTRUCTIONS ANTERIOR TOTAL HIP ARTHROPLASTY 1. Move toes/feet up and down every hour while awake. 2. Be up walking every hour while awake. 3. Use cane in hand opposite of side of hip surgery or walker as comfort allows. Avoid sitting in a chair unless eating, receiving visitors or using the toilet. 4. When resting, lie on back with leg elevated above heart to minimize swelling. Significant swelling could indicate a blood clot and if this occurs, call the office (or go to the ER) to have a venous ultrasound performed. 5. Wound Care: Keep dry sponge on wound for 2 weeks. Use minimal tape. 6. Follow weight bearing status as instructed. 7. May shower with dressing off. Patient Instructions: Pain Management (DC), Precautions after Total Joint Replacement Surgery (DC), Total Hip Replacement (DC) Follow-up/Re
[2020-08-24] MEDS: APIXABAN 2.5 MG TABLET PO (09:07)
[2020-08-24] MEDS: ATORVASTATIN 40 MG TABLET PO (09:07)
[2020-08-24] MEDS: VALSARTAN 80 MG TABLET PO (09:07)
[2020-08-24] MEDS: PANTOPRAZOLE 40 MG TABLET PO (09:07)
[2020-08-24] MEDS: polyethylene glycoL 3350 17 GM POWD.PACK PO (09:07)
[2020-08-24] MEDS: SENNA/DOCUSATE SODIUM TABLET 2 TAB PO ×2 (09:08→16:37)
[2020-08-24] MEDS: FAMOTIDINE 20 MG TABLET PO (09:08)
[2020-08-24] MEDS: hydroCHLOROthiazide 12.5 MG CAPSULE PO (09:08)
--- NOTE | 2020-08-24 09:31 | PM.IMPN ---
Progress Note: A&P Assessment and Plan (1) Arthritis of right hip: Code(s): M16.11 - Unilateral primary osteoarthritis, right hip Status: Acute Assessment and Plan: She is POD #1 s/p right total hip arthroplasty by Dr. Degroot due to osteoarthritis. Pain is well-controlled. She is passing flatus but has not voided yet on her own post-op. Continue to monitor pt until she is able to void. She is tolerating her diet. Wound care, pain control, and DVT prophylaxis will be deferred to the primary service. (2) Urinary retention: Code(s): R33.9 - Retention of urine, unspecified Status: Acute Assessment and Plan: Likely post-op related to anesthesia. She only had 340 cc on bladder scan and straight cath yielded 400cc. She has not voided yet on her own following surgery. Continue bladder scan. Monitor closely. Encourage PO fluid intake and ambulation. Ensure pt is able to void prior to discharge. (3) Nausea after anesthesia: Code(s): T88.59XA - Other complications of anesthesia, initial encounter; R11.0 - Nausea Status: Acute Assessment and Plan: Likely secondary to anesthesia vs narcotic pain medication. She is tolerating her diet without nausea or vomiting. Continue supportive care with zofran as needed. (4) Hypertension: Code(s): I10 - Essential (primary) hypertension Status: Acute Assessment and Plan: Blood pressures are reasonably controlled post-operatively. Most recent BP was 110/73. Continue valsartan-hydrochlorothiazide. (5) Hyperlipidemia: Code(s): E78.5 - Hyperlipidemia, unspecified Status: Acute Assessment and Plan: LFTs are normal. Continue atorvastatin. (6) History of DVT of lower extremity: Code(s): Z86.718 - Personal history of other venous thrombosis and embolism Status: Acute Assessment and Plan: The patient is on eliquis per orthopedic surgery. Will defer DVT prophylaxis to orthopedic surgery. (7) Gastroesophageal reflux disease: Code(s): K21.9 - Gastro-esophageal reflux disease without esophagitis Status: Acute Assessment and Plan: Continue pantoprazole in place of dexilant while inpatient. Time Spent With Patient Time with patient: 15 - 25 minutes Subjective Date/time seen: 08/24/20 09:31 Mrs. Godoy is a 74 y.o. female with PMH significant for left breast CA, HLD, HTN, DVT, GERD, Cron's disease, arthritis, osteopenia who is seen in follow-up for medical management s/p right total knee arthroplasty by Dr. Degroot. She reports pain is generally controlled. She rates it at 4/10 and just took roxicodone. She reports mild nausea and thinks this may be due to the pain medication. She denies vomiting and tolerated her breakfast well. She denies abdominal pain. She is passing flatus but has not had a bowel movement yet. She denies chest pain, dyspnea, and palpitations. She is not having any dizziness, lightheadedness, or headaches. She had the urge to void earlier today but was unable to. Bladder scan demonstrated 340 cc of urine and straight cath was performed at 6:00AM today and yielded 400cc of urine. She reports no other urinary symptoms and notes she cannot urinate on demand. She reports no prior hx of urinary retention. Review of Systems Review of Systems: All systems reviewed & are unremarkable except as noted in HPI and below Exam Narrative: Exam Narrative: General: Pleasant, well-developed, well-nourished, healthy appearing 74 y.o. female lying semi-recumbent in bed in no acute distress. Head: Normocephalic and atraumatic. Conjunctivae without injection or exudate. EOMI. Oral mucosa moist. Neck: Supple. Cardiac: Regular rate and rhythm. S1 and S2 normal. Lungs: Lungs are clear to auscultation bilaterally. Abdomen: Bowel sounds are normoactive. Abdomen is soft, non-distended, and non-tender. No suprapubic tenderness. Musculoskeletal: S/P right
--- NOTE | 2020-08-24 09:52 | P.PNAN_ITS ---
Anes - Prog Note Post-Op Date/Time: 08/24/20 09:52 Cardiovascular status: normal Respiratory status: normal Airway patency: baseline Mental status: baseline Post-Op hydration status: normal Vital Signs: Last Vital Signs Temp 37.6 C 08/24/20 04:00 Pulse 63 08/24/20 04:00 Resp 20 08/24/20 04:00 BP 118/73 08/24/20 04:00 Pulse Ox 95 08/24/20 04:00 Pain Score (VAS): 0/0 I/O: Intake & Output 08/23/20 08/24/20 08/24/20 23:59 07:59 15:59 Intake Total 50 250 240 Output Total 450 Balance 50 -200 240 Laboratory Tests 08/24/20 04:46 08/24/20 04:46 08/23/20 08/24/20 08/24/20 10:55 04:46 04:46 WBC 10.4 H RBC 2.62 L Hgb 8.2 L D Hct 25.5 L MCV 97.3 MCH 31.3 MCHC 32.2 RDW 12.0 Plt Count 219 MPV 9.7 Immature Gran % (Auto) 0.5 Neut % (Auto) 83.1 H Lymph % (Auto) 9.2 L [place] % (Auto) 7.2 Eos % (Auto) 0.0 Baso % (Auto) 0.0 L Lymph # (Auto) 0.95 [place] # (Auto) 0.8 H Eos # (Auto) 0.0 Baso # (Auto) 0.0 Abs Immat Gran (auto) 0.05 H Absolute Neuts (auto) 8.6 H Absolute Nucleated RBC 0.0 Nucleated RBC % 0.0 Sodium 131 L Potassium 4.3 Chloride 99 Carbon Dioxide 25 Anion Gap 7 L BUN 21 H Creatinine 1.10 H Estim Creat Clear Calc 35 Estimated GFR 48 L Glucose 114 H Calcium 8.4 Total Bilirubin 0.4 Direct Bilirubin 0.0 AST 33 ALT 19 Alkaline Phosphatase 77 Total Protein 6.0 L Albumin 3.2 L Vitamin D 25-Hydroxy Blood Type O Positive Antibody Screen Negative 08/24/20 04:46 WBC RBC Hgb Hct MCV MCH MCHC RDW Plt Count MPV Immature Gran % (Auto) Neut % (Auto) Lymph % (Auto) [place] % (Auto) Eos % (Auto) Baso % (Auto) Lymph # (Auto) [place] # (Auto) Eos # (Auto) Baso # (Auto) Abs Immat Gran (auto) Absolute Neuts (auto) Absolute Nucleated RBC Nucleated RBC % Sodium Potassium Chloride Carbon Dioxide Anion Gap BUN Creatinine Estim Creat Clear Calc Estimated GFR Glucose Calcium Total Bilirubin Direct Bilirubin AST ALT Alkaline Phosphatase Total Protein Albumin Vitamin D 25-Hydroxy 58.9 Blood Type Antibody Screen Post-procedural complaints: none Patient Feedback: Patient satisfied with anesthetic care.
[2020-08-24 10:15] VITALS: BP 111/44; PULSE 74; RESP 16; TEMP 37.2; O2SAT 96
--- NOTE | 2020-08-24 11:43 | PCOTNOTE ---
On 08/24/20, the student, Radha Quigley, provided care and completed [facility] documentation on this patient. I have reviewed the student's documentation and agree with the findings.
[2020-08-24 14:20] VITALS: O2SAT 97
[2020-08-24 14:28] VITALS: BP 117/58; PULSE 93; RESP 17; TEMP 36.9; O2SAT 98
== END 2020-08-24 17:17 | disposition home or self-care (01) ==
LOC: ANHSURGERY 10:08 → ANH2MED 16:49
PROVIDERS: Physician Assistant Surgical; Visit Provider Orthopaedic Surgery
PROC: (CPT 27130; principal; 2020-08-23 12:00)
DX: M16.11 Unilateral primary osteoarthritis, right hip (principal); I10 Essential (primary) hypertension; K50.90 Crohn's disease, unspecified, without complications; D64.9 Anemia, unspecified; K21.9 Gastro-esophageal reflux disease without esophagitis; E78.5 Hyperlipidemia, unspecified; M85.80 Other specified disorders of bone density and structure, unspecified site; E66.9 Obesity, unspecified; Z68.29 Body mass index [BMI] 29.0-29.9, adult; Z86.718 Personal history of other venous thrombosis and embolism
CPT/HCPCS: 27130; 36415; 73501; 80048; 80076; 82306; 85025; 86850; 86900; 86901; 97116; 97161; 97165; 97530; A9270; C1776; J0171; J0690; J1100; J1170; J1885; J2370; J2405; J2704; J2710; J2795; J3010; J3370; J7120

== ENCOUNTER 2020-08-25 12:52 | Outpatient (CLI) | payer MEDICARE, SELFPAY ==
[2020-08-25 14:39] LABS: Basophils Percent Auto 0.1 % (0.2-1.2); Eosinophils Absolute Auto 0.1 K/mm3 (0-0.3); Eosinophils Percent Auto 0.6 % (0-4.4); Hematocrit 28.2 % (37.0-47.0); Hemoglobin 9.2 g/dL (12.0-15.0); Immature Granulocyte Absolute 0.06 K/mm3 (0.00-0.031); Immature Granulocyte Percent A 0.6 % (0-0.5); Lymphocytes Absolute Auto 1.49 K/mm3 (0.9-3.2); Lymphocytes Percent Auto 15.7 % (18.3-44.2); Mean Corpuscular HGB Conc 32.6 g/dl (32-36); Mean Corpuscular Hemoglobin 31.8 pg (26-34); Mean Corpuscular Volume 97.6 fl (80-100); Mean Platelet Volume 10.1 fl (7.4-10.4); Monocytes Absolute Auto 0.8 K/mm3 (0.1-0.6); Monocytes Percent Auto 8.7 % (2.6-8.5); Neutrophils Absolute Auto 7.1 K/mm3 (1.3-6.7); Neutrophils Percent Auto 74.3 % (45.5-73.1); Platelet Count Result 256 k/mm3 (150-375); Red Blood Count 2.89 M/mm3 (4.2-5.4); Red Cell Distribution Width 12.2 % (11.5-14.5); White Blood Count 9.5 K/mm3 (4.5-10.0)
== END 2020-08-25 12:53 | disposition home or self-care (01) ==
LOC: ANHLAB 12:55
PROVIDERS: Visit Provider Physician Assistant Surgical
DX: Z96.641 Presence of right artificial hip joint (principal)
CPT/HCPCS: 36415; 85025

== ENCOUNTER 2020-08-26 17:39 | Observation (INO) | payer MEDICARE, SELFPAY ==
[2020-08-26] VITALS (9 sets, daily range): BP systolic 129–164; BP diastolic 64–84; PULSE 86–118; RESP 17–20; TEMP 36.6; O2SAT 95–99; BMI 37.8
--- NOTE | ~2020-08-26 | XR_ITS ---
EXAMINATION: XR ribs RT 2V w CXR 2V EXAM DATE: 08/26/2020 18:40 INDICATION: Fall, right axillary, posterior left lower right-sided rib pain. Syncope. TECHNIQUE: Frontal projection of the upper right ribs, frontal projection of the lower right ribs, ob lique projection of the right ribs, frontal and lateral chest x-ray(s) for interpretation. Comparison is made to prior examination from 08/07/2020. FINDINGS: There are no displaced acute right rib fractures identified. There is no soft tissue abno rmality seen. No confluent consolidation, pneumothorax or pleural effusion suspected. Cardiomediastin al silhouette is normal. There are cholecystectomy clips. There are mild bony degenerative changes. IMPRESSION: No displaced right rib fractures. Reviewed, dictated and finalized at location A.
--- NOTE | ~2020-08-26 | CT_ITS ---
EXAMINATION: CT brain wo con EXAM DATE: 08/26/2020 18:24 INDICATION: Syncope. Breast cancer. TECHNIQUE: Spiral CT of the head was performed without contrast. Axial, coronal and sagittal images were reviewed. The dose-length product (DLP) for this examination was 605.33 mGy-cm. The exposure w as tailored according to patient size, and iterative reconstruction (ASIR) was used as additional dos e reduction technique. Comparison is made to prior examination from 12/01/2012. FINDINGS: There is no acute intraparenchymal hemorrhage. No evidence of intraparenchymal brain mass lesion. No evidence of acute infarction. Please note that initial head CT has limited sensitivity f or small or acute infarctions. There is mild to moderate periventricular and subcortical hypodensity, nonspecific but probably related to small vessel ischemic disease, mild progression compared to 2013 . There is intracranial carotid arteriosclerosis. There are no extra-axial collections. There i s no mass effect or midline shift. The orbits are unremarkable. Soft tissue is unremarkable. The v isualized sinuses and mastoid air cells are well aerated. IMPRESSION: 1. No acute intracranial findings. 2. Chronic age related findings. Reviewed, dictated and finalized at location A.
--- NOTE | ~2020-08-26 | US_ITS ---
EXAMINATION: US carotid duplex BI DATE: 08/27/2020 12:23 INDICATION: Syncope TECHNIQUE: Grayscale, color Doppler, and pulsed Doppler images of the cervical carotid arteries were obtained. The degree of vessel stenosis is placed in one of the following categories: normal, <50%, 5 0-69%, >=70% but less than near-occlusion, near-occlusion, or total occlusion. Note that percent sten osis relative to normal distal artery lumen diameter is indirectly measured from velocity measurement s as described by Lopez, et al. Radiology 2003; [id number]. COMPARISON: None. FINDINGS: RIGHT: The right common carotid artery (CCA) peak systolic velocity (PSV) is 87 cm/s. The right internal car otid artery (ICA) PSV is 84 cm/s. The right ICA end-diastolic velocity (EDV) is 15 cm/s. The right IC A/CCA PSV ratio is 1.0. Grayscale and color Doppler images yield an estimate of <50% diameter reducti on from plaque in the ICA. The external carotid artery (ECA) PSV is 69 cm/s. There is antegrade flow in the right vertebral artery. LEFT: The left CCA PSV is 79 cm/s. The left ICA PSV is 113 cm/s. The left ICA EDV is 27 cm/s. The left ICA/ CCA PSV ratio is 1.4. Grayscale and color Doppler images yield an estimate of <50% diameter reduction from plaque in the ICA. The ECA PSV is 84 cm/s. There is antegrade flow in the left vertebral artery . IMPRESSION: 1. <50% stenosis in the right internal carotid artery. 2. <50% stenosis in the left internal carotid artery. Reviewed, dictated and finalized at location A.
--- NOTE | 2020-08-26 17:42 | ECG_ITS ---
Measurements Intervals [place] Rate: 91 P: 57 OR: 182 QRS: 14 QRSD: 141 T: 24 QT: 388 QTc: 478 Interpretive Statements SINUS RHYTHM RIGHT BUNDLE BRANCH BLOCK ABNORMAL ECG Electronically Signed On 08-27-2020 6:57:17 CDT by Andre Pierre D.O.
--- NOTE | 2020-08-26 18:04 | ED.SYNCOPE ---
HPI - Syncope General Chief Complaint: Syncope Stated Complaint: syncopy Time Seen by Provider: 08/26/20 17:43 Source: patient Mode of arrival: EMS Limitations: no limitations History of Present Illness HPI narrative: 74 years old white female presented to the ED by ambulance with her son because of syncope at home. Patient is a status post right hip replacement 4 days ago. No bowel movement for 5 days, patient on oxycodone which is causing nausea most of the time. Patient finished her eating, then went upstairs, told her son that she feels nauseated, dizzy, lightheadedness and feels like She is going to faint. Her son helped her to sit on a chair then blacked out for about 30 seconds. Work-up without any confusion or incoherent speech. Then blacked out again and slid out of the chair to the floor. Bruised the right side of the mid back. Currently patient complaining of the back pain. Patient denies any fever, chills, vomiting, chest pain, shortness of breath, headache, sore throat, exposure to anybody with COVID-19. COVID-19 test was -5 days ago. History of hypertension and hyperlipidemia. Patient does not smoke or drink or using drugs. Patient on Eliquis Related Data Home Medications Medication Instructions Recorded Confirmed Dexilant 60 mg PO DAILY 10/25/19 08/23/20 Glucosamine Chondroitin 1 cap PO BID 10/25/19 08/23/20 Multivitamin Women 50 Plus 1 tablet PO DAILY 10/25/19 08/23/20 acidophilus-pectin, citrus 1 cap PO HS 10/25/19 08/23/20 [Acidophilus Probiotic] atorvastatin 40 mg PO DAILY 10/25/19 08/23/20 biotin 10,000 mcg PO DAILY 10/25/19 08/23/20 coenzyme Q10 [Co Q-10] 200 mg PO DAILY 10/25/19 08/23/20 psyllium husk [Fiber-Caps 0.52 g PO DAILY MDD 5 10/25/19 08/23/20 (psyllium husk)] valsartan-hydrochlorothiazide 1 tablet PO DAILY 10/25/19 08/23/20 fluticasone propionate 50 1 spray NASAL .prn PRN ml 03/23/20 08/23/20 mcg/actuation nasal spray,suspension Allergies Allergy/AdvReac Type Severity Reaction Status Date / Time ibuprofen Allergy Mild CROHN'S Verified 08/26/20 17:42 FLARE UP naproxen [From Aleve] Allergy Mild CROHN'S Verified 08/26/20 17:42 FLARE UP adhesive tape Allergy Unknown RASH Verified 08/26/20 17:42 bacitracin Allergy Unknown RASH Verified 08/26/20 17:42 codeine Allergy Unknown FACIAL Verified 08/26/20 17:42 SWELLING gramicidin D Allergy Unknown RASH Verified 08/26/20 17:42 neomycin Allergy Unknown Rash Verified 08/26/20 17:42 [From Neosporin ([id number])] polymyxin B Allergy Unknown RASH Verified 08/26/20 17:42 Review of Systems Review of Systems: Narrative: CONSTITUTIONAL: Denies fever, chills, or sweats. EYES: Denies visual changes, redness, or discharge. ENT: Denies rhinorrhea, congestion, sore throat, or otalgia. CARDIOVASCULAR: Denies chest pain, palpitations, or edema. RESPIRATORY: Denies cough or dyspnea. GASTROINTESTINAL: Denies abdominal pain, nausea, vomiting, or diarrhea. GENITOURINARY: Denies dysuria or hematuria. SKIN: Denies rash or itching. MUSCULOSKELETAL: Denies back pain, joint pain, or myalgia. NEUROLOGIC: Denies headache, numbness, or weakness. PSYCHIATRIC: Denies anxiety or depression. [facility] Past Medical History Medical History Anemia Arthritis Basal cell carcinoma of skin Crohn's disease Gastroesophageal reflux disease History of adenomatous polyp of colon History of left breast cancer (~1999) Status post lumpectomy, chemotherapy, and radiation. Hyperlipidemia Hypertension Left leg DVT (~2000) Osteoarthritis of right hip Osteopenia Surgical History Surgical History History of cholecystectomy History of colonoscopy History of lumpectomy of left breast (~2000) With lymph node dissection for breast cancer. History of Mohs micrographic surgery for skin cancer History of tonsillectomy and adenoidectomy History of total right
--- NOTE | 2020-08-26 18:07 | PC.NURSE ---
pt. reported too dizzy, light headed, and uncomfortable with hip in general to stand up for standing orthostat.
[2020-08-26 19:25] LABS: Prothrombin Time 12.9 Seconds (11.1-14.7)
[2020-08-26 19:26] LABS: Partial Thromboplastin Time 27.6 SECONDS (22.3-36.8)
[2020-08-26 19:27] LABS: Alanine Aminotransferase 16 U/L (4-35); Albumin Level 3.8 g/dL (3.5-5.1); Alkaline Phosphatase 96 U/L (38-126); Anion Gap 9 mmol/L (8-16); Aspartate Amino Transferase 34 U/L (14-36); Bilirubin,Total 0.6 mg/dL (0.2-1.3); Blood Urea Nitrogen 17 mg/dL (7-17); Calcium 9.2 mg/dL (8.4-10.2); Carbon Dioxide 29 mmol/L (22-30); Chloride 99 mmol/L (98-107); Estimated CRCL calculation 39 ml/min; Estimated Glomerular Filt Rate 54; Glucose 127 mg/dL (65-105); Potassium 3.6 mmol/L (3.4-5.0); Sodium 137 mmol/L (137-145)
[2020-08-26 19:30] LABS: Basophils Percent Auto 0.1 % (0.2-1.2); Eosinophils Absolute Auto 0.1 K/mm3 (0-0.3); Eosinophils Percent Auto 0.5 % (0-4.4); Hematocrit 28.9 % (37.0-47.0); Hemoglobin 9.3 g/dL (12.0-15.0); Immature Granulocyte Absolute 0.09 K/mm3 (0.00-0.031); Immature Granulocyte Percent A 0.8 % (0-0.5); Lymphocytes Absolute Auto 1.24 K/mm3 (0.9-3.2); Lymphocytes Percent Auto 11.7 % (18.3-44.2); Mean Corpuscular HGB Conc 32.2 g/dl (32-36); Mean Corpuscular Hemoglobin 31.6 pg (26-34); Mean Corpuscular Volume 98.3 fl (80-100); Mean Platelet Volume 9.3 fl (7.4-10.4); Monocytes Absolute Auto 0.8 K/mm3 (0.1-0.6); Monocytes Percent Auto 7.1 % (2.6-8.5); Neutrophils Absolute Auto 8.5 K/mm3 (1.3-6.7); Neutrophils Percent Auto 79.8 % (45.5-73.1); Platelet Count Result 256 k/mm3 (150-375); Red Blood Count 2.94 M/mm3 (4.2-5.4); Red Cell Distribution Width 12.4 % (11.5-14.5); White Blood Count 10.6 K/mm3 (4.5-10.0)
[2020-08-26 19:39] LABS: Troponin I < 0.012 ng/mL (0.000-0.034)
[2020-08-26 19:53] LABS: Add Urine Microscopic? YES; Appearance Urine Clear (Clear); Bilirubin Urine Negative (Negative); Blood Urine Negative (Negative); Color Urine Yellow (Yellow); Glucose Urine UA Negative (Negative); Ketones Urine Trace mg/dL (Negative); Leukocyte Esterase Ur Negative LEU/UL (Negative); Nitrate Urine Negative (Negative); Protein Urine Negative (Negative); RBC Urine 0-2 /hpf (0-2); Specific Grav Ur 1.013 (1.001-1.035); Urobilinogen Urine Negative mg/dL (<2.0); WBC Urine 0-3 /hpf
--- NOTE | 2020-08-26 20:16 | PM.IMHP ---
H&P: HPI History of Present Illness Date/Time: 08/26/20 20:16 Chief complaint: syncope, nausea Narrative: This is a pleasant 74 year old female with known history of chronic HTN, Crohns disease, and previous left sided breast cancer who presented to the hospital after suffering a witnessed syncopal episode at home today. The patient is currently anticoagulated on Eliquis following a right hip replacement four days ago here at our hospital. She describes climbing up a flight of stairs today and as she got to the top she felt weak, tired, dizzy, nauseated, and diaphoretic. She had the sensation that she was going to faint and her son helped her in into a chair when she passed out for about 30 seconds. She woke up disoriented and then immediately passed out again for about 45 seconds. She slid out of the chair and did suffer a contusion to the right side of her back. Her son denies witnessing any seizure like activity and the patient denies any postictal period, loss of urine, or tongue biting. She also denies any focal neurological deficit. She has had a previous syncopal episode but this was years ago. She denies any recent head trauma. Her only new medications are narcotic medications for her right hip replacement. On further questioning she denies any chest pain or shortness of breath prior to passing out. She also denies any recent fevers, chills, cough, headache, blurry vision, abdominal pain, dysuria, hematuria, diarrhea, or rectal bleeding. She was evaluated in the ER and CT brain was unremarkable. Routine labs were normal. We have been asked to admit her to the hospital for observation. Review of Systems Review of Systems: All systems reviewed & are unremarkable except as noted in HPI and below PMFSH Past Medical History Medical History Anemia Arthritis Basal cell carcinoma of skin Crohn's disease Gastroesophageal reflux disease History of adenomatous polyp of colon History of left breast cancer (~1999) Status post lumpectomy, chemotherapy, and radiation. Hyperlipidemia Hypertension Left leg DVT (~2000) Osteoarthritis of right hip Osteopenia Surgical History Surgical History History of cholecystectomy History of colonoscopy History of lumpectomy of left breast (~2000) With lymph node dissection for breast cancer. History of Mohs micrographic surgery for skin cancer History of tonsillectomy and adenoidectomy History of total right hip arthroplasty (~08/23/20) Family History Family History Mother Heart disease Father Hypertension Cancer Grandparent Diabetes mellitus Heart disease Social History Social History Social History: Surrogate decision maker: Syed Godoy, spouse. Code status: Full code. Smoking status: Never smoker Alcohol intake: former Substance use: never Substance use type: does not use Additional living arrangements comments: Lives in [place] with her . 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 Gender identity (if verbalized by the patient): Female Spiritual care concerns: No Meds Home Medications and Allergies Home Medications Medication Instructions Recorded Confirmed Type Dexilant 60 mg PO DAILY 10/25/19 08/23/20 History Glucosamine Chondroitin 1 cap PO BID 10/25/19 08/23/20 History Multivitamin Women 50 Plus 1 tablet PO DAILY 10/25/19 08/23/20 History acidophilus-pectin, citrus 1 cap PO HS 10/25/19 08/23/20 History [Acidophilus Probiotic] atorvastatin 40 mg PO DAILY 10/25/19 08/23/20 History biotin 10,000 mcg PO DAILY 10/25/19 08/23/20 History coenzyme Q10 [Co Q-10] 200 mg PO DAILY 10/25/19 08/23/20 History psyllium husk [Fiber-Caps 0.52 g PO DAILY MDD 5 10/25/19 08/23/20 H
[2020-08-26] MEDS: SODIUM CHLORIDE 0.9% IV 1,000 ML 999 ML IV CONT (20:18)
[2020-08-26] MEDS: SODIUM CHLORIDE 0.9% IV 1,000 ML 125 ML IV CONT (21:23)
[2020-08-26] MEDS: LIDOCAINE 5% PATCH 1 PATCH TRANSDERM (22:32)
[2020-08-27] VITALS (11 sets, daily range): BP systolic 123–146; BP diastolic 48–74; PULSE 72–122; RESP 18–20; TEMP 36.1–36.4; O2SAT 95–98
[2020-08-27] MEDS: APIXABAN 2.5 MG TABLET PO ×2 (00:38→08:45)
[2020-08-27] MEDS: oxyCODONE HCL (*CRX) 2.5 MG TAB IR PO ×2 (00:41→05:12)
[2020-08-27] MEDS: SODIUM CHLORIDE 0.9% IV 1,000 ML 125 ML IV CONT (05:09)
[2020-08-27 05:32] LABS: Basophils Percent Auto 0.1 % (0.2-1.2); Eosinophils Absolute Auto 0.1 K/mm3 (0-0.3); Hematocrit 24.3 % (37.0-47.0); Hemoglobin 7.9 g/dL (12.0-15.0); Immature Granulocyte Absolute 0.04 K/mm3 (0.00-0.031); Immature Granulocyte Percent A 0.5 % (0-0.5); Lymphocytes Absolute Auto 1.88 K/mm3 (0.9-3.2); Lymphocytes Percent Auto 24.3 % (18.3-44.2); Mean Corpuscular HGB Conc 32.5 g/dl (32-36); Mean Corpuscular Volume 95.3 fl (80-100); Mean Platelet Volume 9.5 fl (7.4-10.4); Monocytes Absolute Auto 0.6 K/mm3 (0.1-0.6); Neutrophils Absolute Auto 5.1 K/mm3 (1.3-6.7); Neutrophils Percent Auto 66.1 % (45.5-73.1); Platelet Count Result 255 k/mm3 (150-375); Red Blood Count 2.55 M/mm3 (4.2-5.4); Red Cell Distribution Width 12.2 % (11.5-14.5); White Blood Count 7.8 K/mm3 (4.5-10.0)
[2020-08-27 05:36] LABS: Anion Gap 3 mmol/L (8-16); Blood Urea Nitrogen 14 mg/dL (7-17); Calcium 8.1 mg/dL (8.4-10.2); Carbon Dioxide 29 mmol/L (22-30); Chloride 105 mmol/L (98-107); Estimated CRCL calculation 54 ml/min; Estimated Glomerular Filt Rate > 60; Glucose 99 mg/dL (65-105); Magnesium 1.8 mg/dL (1.6-2.3); Potassium 3.6 mmol/L (3.4-5.0); Sodium 137 mmol/L (137-145)
--- NOTE | 2020-08-27 07:01 | ADMGEN ---
This patient, Rosaura Godoy, was admitted to Medical Room 258-01 on 08/25/2020 @2049. Patient/family oriented to hospital policies and general routines including ID bracelet, bed and alarms, visiting hours, pain management, procedures, bathroom and other care routines, personal items, smoking policy, room service/diet, and visiting hours. Information on how to activate the Rapid Response Team has been discussed. Patient/Family are encouraged to report perceived risks to care and to ask questions if they do not understand what they are told or what they should do.
[2020-08-27 07:29] LABS: Thyroid Stimulating Hormone Reflex 0.637 uIU/mL (0.465-4.68)
[2020-08-27 07:57] LABS: Iron 22 ug/dL (37-170)
[2020-08-27 08:07] LABS: Percent Iron Saturation 9 % (20-50)
[2020-08-27 08:11] LABS: Transferrin 164 mg/dL (206-381)
[2020-08-27] MEDS: ATORVASTATIN 40 MG TABLET PO (08:45)
[2020-08-27] MEDS: SENNA/DOCUSATE SODIUM TABLET 2 TAB PO (08:45)
[2020-08-27] MEDS: polyethylene glycoL 3350 17 GM POWD.PACK PO (08:46)
[2020-08-27] MEDS: PANTOPRAZOLE 40 MG TABLET PO (08:46)
[2020-08-27] MEDS: hydroCHLOROthiazide 12.5 MG CAPSULE PO (08:46)
[2020-08-27] MEDS: PSYLLIUM POWDER PACKET 1 PACKET PO (08:47)
[2020-08-27] MEDS: SACCHAROMYCES BOULARDII 250 MG CAPSULE PO (08:47)
[2020-08-27] MEDS: VALSARTAN 80 MG TABLET PO (08:47)
[2020-08-27 09:14] LABS: Folic Acid > 20.0 ng/mL (2.76->20)
[2020-08-27] MEDS: BISACODYL 10 MG SUPPOSITORY RECTAL (11:36)
[2020-08-27] MEDS: ACETAMINOPHEN 325 MG TABLET 650 MG PO (11:36)
[2020-08-27 13:04] LABS: Hematocrit 24.3 % (37.0-47.0); Hemoglobin 7.9 g/dL (12.0-15.0)
[2020-08-27] MEDS: LIDOCAINE 5% PATCH 1 PATCH TRANSDERM (14:14)
--- NOTE | 2020-08-27 16:36 | PM.DS ---
DS: Admitting Diagnosis Admitting Diagnosis Admitting Diagnosis: syncope, nausea DS: Discharge Diagnosis Discharge Diagnosis (1) Syncope and collapse: Code(s): R55 - Syncope and collapse Status: Acute Assessment and Plan: Discharge Summary (Date of service 08/27/20): Mrs. Godoy is a 74 y.o. female with PMH significant for recent right total hip arthroplasty by Dr. Degroot, hx of left sided breast CA, HLD, HTN, DVT, GERD, Cron's disease, arthritis, and osteopenia who presented to the emergency department via EMS for the evaluation of a syncopal episode. She reported that she climbed a flight of stairs and felt very weak, tired, dizzy, nauseated, and diaphoretic when she reached the top. She felt she was going to faint and told her son who helped her into a chair. She had a brief loss of consciousness for 30 seconds and immediately regained consciousness. She subsequently passed out for 45 seconds and slid out of the chair suffering an abrasion to her right back. She had no seizure-like activity, precipitating chest pain or dyspnea, or lateralizing symptoms. Initial workup in the emergency department included CT brain which was unremarkable, WBC 10,600, Hb 9.3, Hct 28.9, electrolytes normal, troponin negative, EKG with sinus rhythm, rate 91, and right bundle branch block. Rib and CXR films were negative for fracture. She was admitted to the hospitalist service under observation. Carotid doppler US was performed and demonstrated <50% stenosis of the ICA bilaterally. Echocardiogram was not repeated since this was just completed outpatient per cardiology 08/17/20. Echocardiogram demonstrated EF of 65%, grade 1 diastolic dysfunction, and no significant valvular deficits. She also had a negative stress test per cardiology for pre-op planning 08/03/20. Telemetry was monitored and showed sinus rhythm without any evidence of dysrhythmia. TSH was normal. She is established with Dr. Wise. Her case was discussed with Dr. Weiss with cardiology who recommended outpatient telemetry monitoring which was ordered. She was advised to call the cardiology office 08/29/20, to get her event monitor. Her syncope was felt to be neurally mediated reflex syncope as the patient passed out immediately after doing exertion with a classic prodrome. She received gentle IV fluid rehydration. Hemoglobin remained stable at 7.9. Iron studies were consistent with anemia of chronic disease and folate and vitamin B12 were sufficient. She ambulated in the halls without any difficulty. She felt much better and requested to discharge home with close outpatient follow-up and assistance from her son at home. She was discharged in hemodynamically stable condition on the afternoon of 08/27/20. I discussed the importance of cardiac event monitoring at discharge and she and her son verbalized understanding. Fall precautions were discussed at length. (2) Status post right hip replacement: Code(s): Z96.641 - Presence of right artificial hip joint Status: Acute Assessment and Plan: Continue ortho recommendations and outpatient follow-up with orthopedic surgery. (3) Hypertension: Qualifiers: Hypertension type: unspecified Qualified Code(s): I10 - Essential (primary) hypertension Code(s): I10 - Essential (primary) hypertension Status: Chronic Assessment and Plan: Stable. Blood pressures were reasonably controlled. Valsartan-hydrochlorothiazide was continued. (4) Hyperlipidemia: Qualifiers: Hyperlipidemia type: unspecified Qualified Code(s): E78.5 - Hyperlipidemia, unspecified Code(s): E78.5 - Hyperlipidemia, unspecified Status: Chronic Assessment and Plan: Atorvastatin was continued. (5) Crohn's disease: Qualifiers: Digestive disease complication type: without complication Gastrointestinal tract location: unspecified location Qualified Code(s): K50.90 -
== END 2020-08-27 17:50 | disposition home or self-care (01) ==
LOC: ANHED 20:08 → ANH2MED 20:21
PROVIDERS: Physician Assistant; Admitting Provider Family Medicine; Emergency Provider Emergency Medicine; Visit Provider Family Medicine
DX: R55 Syncope and collapse (principal); I10 Essential (primary) hypertension; E78.5 Hyperlipidemia, unspecified; I65.23 Occlusion and stenosis of bilateral carotid arteries; D64.9 Anemia, unspecified; K21.9 Gastro-esophageal reflux disease without esophagitis; K50.90 Crohn's disease, unspecified, without complications; Z85.3 Personal history of malignant neoplasm of breast; M85.80 Other specified disorders of bone density and structure, unspecified site; Z79.01 Long term (current) use of anticoagulants; Z96.641 Presence of right artificial hip joint
CPT/HCPCS: 36415; 51701; 70450; 71046; 71100; 80048; 80053; 81001; 82607; 82728; 82746; 83540; 83550; 83735; 84443; 84466; 84484; 85014; 85018; 85025; 85610; 85730; 93005; 93880; 96360; 96361; 99285; A9270; G0378; J7030

== ENCOUNTER 2020-08-31 15:34 | Outpatient (CLI) | payer MEDICARE, SELFPAY ==
[2020-08-31 16:07] LABS: Basophils Percent Auto 0.1 % (0.2-1.2); Eosinophils Absolute Auto 0.1 K/mm3 (0-0.3); Eosinophils Percent Auto 1.2 % (0-4.4); Hematocrit 28.8 % (37.0-47.0); Hemoglobin 9.1 g/dL (12.0-15.0); Immature Granulocyte Absolute 0.09 K/mm3 (0.00-0.031); Lymphocytes Absolute Auto 2.06 K/mm3 (0.9-3.2); Lymphocytes Percent Auto 23.9 % (18.3-44.2); Mean Corpuscular HGB Conc 31.6 g/dl (32-36); Mean Corpuscular Hemoglobin 31.4 pg (26-34); Mean Corpuscular Volume 99.3 fl (80-100); Mean Platelet Volume 9.2 fl (7.4-10.4); Monocytes Absolute Auto 0.5 K/mm3 (0.1-0.6); Neutrophils Absolute Auto 5.8 K/mm3 (1.3-6.7); Neutrophils Percent Auto 67.8 % (45.5-73.1); Platelet Count Result 403 k/mm3 (150-375); Red Cell Distribution Width 12.6 % (11.5-14.5); White Blood Count 8.6 K/mm3 (4.5-10.0)
[2020-08-31 16:19] LABS: Alanine Aminotransferase 19 U/L (4-35); Albumin Level 4.1 g/dL (3.5-5.1); Alkaline Phosphatase 101 U/L (38-126); Anion Gap 8 mmol/L (8-16); Aspartate Amino Transferase 28 U/L (14-36); Bilirubin,Total 0.4 mg/dL (0.2-1.3); Blood Urea Nitrogen 15 mg/dL (7-17); Calcium 9.2 mg/dL (8.4-10.2); Carbon Dioxide 29 mmol/L (22-30); Chloride 100 mmol/L (98-107); Cholesterol 151 mg/dL (0-200); Estimated Glomerular Filt Rate 54; Glucose 99 mg/dL (65-105); HDL Direct 39 mg/dL; Potassium 3.7 mmol/L (3.4-5.0); Sodium 137 mmol/L (137-145); Triglycerides 112 mg/dL (<150)
[2020-08-31 16:30] LABS: LDL Cholesterol Direct 79 mg/dL
[2020-08-31 16:50] LABS: Thyroid Stimulating Hormone 0.585 uIU/mL (0.465-4.680)
[2020-08-31 17:03] LABS: Free T4 Free Thyroxine 1.27 ng/mL (0.78-2.19)
== END 2020-08-31 15:35 | disposition home or self-care (01) ==
PROVIDERS: Visit Provider Physician Assistant
DX: I10 Essential (primary) hypertension (principal); E78.5 Hyperlipidemia, unspecified; D64.9 Anemia, unspecified; E55.9 Vitamin D deficiency, unspecified
CPT/HCPCS: 36415; 80053; 80061; 82306; 84439; 84443; 85025

== ENCOUNTER 2020-10-19 08:27 | Outpatient (CLI) | payer MEDICARE, SELFPAY ==
[2020-10-19 08:49] LABS: Basophils Percent Auto 0.2 % (0.2-1.2); Eosinophils Absolute Auto 0.1 K/mm3 (0-0.3); Eosinophils Percent Auto 2.1 % (0-4.4); Hematocrit 31.4 % (37.0-47.0); Hemoglobin 9.8 g/dL (12.0-15.0); Immature Granulocyte Absolute 0.01 K/mm3 (0.00-0.031); Immature Granulocyte Percent A 0.2 % (0-0.5); Lymphocytes Absolute Auto 1.83 K/mm3 (0.9-3.2); Lymphocytes Percent Auto 38.9 % (18.3-44.2); Mean Corpuscular HGB Conc 31.2 g/dl (32-36); Mean Corpuscular Hemoglobin 30.6 pg (26-34); Mean Corpuscular Volume 98.1 fl (80-100); Mean Platelet Volume 9.2 fl (7.4-10.4); Monocytes Absolute Auto 0.6 K/mm3 (0.1-0.6); Monocytes Percent Auto 12.1 % (2.6-8.5); Neutrophils Absolute Auto 2.2 K/mm3 (1.3-6.7); Neutrophils Percent Auto 46.5 % (45.5-73.1); Platelet Count Result 258 k/mm3 (150-375); Red Cell Distribution Width 11.9 % (11.5-14.5); White Blood Count 4.7 K/mm3 (4.5-10.0)
[2020-10-19 12:24] LABS: Alanine Aminotransferase 18 U/L (4-35); Albumin Level 4.1 g/dL (3.5-5.1); Alkaline Phosphatase 94 U/L (38-126); Anion Gap 9 mmol/L (8-16); Aspartate Amino Transferase 25 U/L (14-36); Bilirubin,Total 0.5 mg/dL (0.2-1.3); Blood Urea Nitrogen 19 mg/dL (7-17); Calcium 9.4 mg/dL (8.4-10.2); Carbon Dioxide 28 mmol/L (22-30); Chloride 100 mmol/L (98-107); Cholesterol 172 mg/dL (0-200); Estimated Glomerular Filt Rate > 60; Glucose 96 mg/dL (65-105); HDL Direct 49 mg/dL; Sodium 137 mmol/L (137-145); Triglycerides 109 mg/dL (<150)
[2020-10-19 12:35] LABS: LDL Cholesterol Direct 92 mg/dL
[2020-10-19 12:48] LABS: Vitamin D 25 Hydroxy 65.3 ng/mL
[2020-10-19 12:49] LABS: Iron 76 ug/dL (37-170); Percent Iron Saturation 22 % (20-50)
[2020-10-19 12:50] LABS: Free T4 Free Thyroxine 1.01 ng/mL (0.78-2.19)
[2020-10-23 13:53] LABS: CA 27.29 21 U/mL (<38)
== END 2020-10-19 08:28 | disposition home or self-care (01) ==
PROVIDERS: Visit Provider Internal Medicine Hematology & Oncology
DX: E78.5 Hyperlipidemia, unspecified (principal); I10 Essential (primary) hypertension; E55.9 Vitamin D deficiency, unspecified; D64.9 Anemia, unspecified; D50.9 Iron deficiency anemia, unspecified; C50.912 Malignant neoplasm of unspecified site of left female breast
CPT/HCPCS: 36415; 80053; 80061; 82306; 82728; 83540; 83550; 84439; 84443; 85025; 86300

== ENCOUNTER 2021-02-03 18:01 | Emergency (ER) | payer MEDICARE, SELFPAY ==
--- NOTE | ~2021-02-03 | XR_ITS ---
EXAMINATION: XR wrist RT min 3V DATE: 02/03/2021 18:36 INDICATION: Right wrist injury and pain. TECHNIQUE: 4 views of right wrist were obtained. COMPARISON: None. FINDINGS: Bone alignment is normal. No fracture. There is mild osteoarthritis of first metacarpophala ngeal joint and some of the interphalangeal joints. There is severe osteoarthritis of fifth distal in terphalangeal joint. IMPRESSION: 1. Polyarticular osteoarthritis. Reviewed, dictated and finalized at location A.
--- NOTE | 2021-02-03 18:20 | ED.UPPEXIN ---
HPI - Extremity Injury (Upper) General Chief Complaint: Extremity Injury, Lower Stated Complaint: Right Wrist Pain Time Seen by Provider: 02/03/21 18:15 Source: patient and RN notes reviewed Mode of arrival: ambulatory Limitations: no limitations History of Present Illness HPI narrative: 75-year-old female presents to the room [facility] with complaints of dorsal right wrist pain. States that she tripped and somehow injured her wrist. Denies hitting head. No loss of consciousness. Denies any neurologic symptoms. No chest pain. No shortness of breath. Remembers the entire incident. No snuffbox tenderness. Sensation intact in all 5 fingers with a strong distance education faculty liaison. Related Data Home Medications Medication Instructions Recorded Confirmed Dexilant 60 mg PO DAILY 10/25/19 08/26/20 Glucosamine Chondroitin 1 cap PO BID 10/25/19 08/26/20 Multivitamin Women 50 Plus 1 tablet PO DAILY 10/25/19 08/26/20 acidophilus-pectin, citrus 1 cap PO HS 10/25/19 08/26/20 [Acidophilus Probiotic] atorvastatin 40 mg PO DAILY 10/25/19 08/26/20 biotin 10,000 mcg PO DAILY 10/25/19 08/26/20 coenzyme Q10 [Co Q-10] 200 mg PO DAILY 10/25/19 08/26/20 psyllium husk [Fiber-Caps 0.52 g PO DAILY MDD 5 10/25/19 08/26/20 (psyllium husk)] valsartan-hydrochlorothiazide 1 tablet PO DAILY 10/25/19 08/26/20 fluticasone propionate 50 1 spray NASAL .prn PRN ml 03/23/20 08/26/20 mcg/actuation nasal spray,suspension Allergies Allergy/AdvReac Type Severity Reaction Status Date / Time ibuprofen Allergy Mild CROHN'S Verified 08/26/20 21:42 FLARE UP naproxen [From Aleve] Allergy Mild CROHN'S Verified 08/26/20 21:42 FLARE UP adhesive tape Allergy Unknown RASH Verified 08/26/20 21:42 bacitracin Allergy Unknown RASH Verified 08/26/20 21:42 codeine Allergy Unknown FACIAL Verified 08/26/20 21:42 SWELLING gramicidin D Allergy Unknown RASH Verified 08/26/20 21:42 neomycin Allergy Unknown Rash Verified 08/26/20 21:42 [From Neosporin ([id number])] polymyxin B Allergy Unknown RASH Verified 08/26/20 21:42 Review of Systems Review of Systems: Narrative: CONSTITUTIONAL: Denies fever, chills, or sweats. CARDIOVASCULAR: Denies chest pain, palpitations, or edema. RESPIRATORY: Denies cough or dyspnea. SKIN: Denies rash or itching. No bruising MUSCULOSKELETAL: Denies back pain or myalgia. Reports right dorsal wrist pain without snuffbox tenderness. Decreased range of motion due to swelling and pain. NEUROLOGIC: Denies headache, numbness, or weakness. PSYCHIATRIC: Denies anxiety or depression. All other systems reviewed are negative, except as documented in HPI. [facility] Past Medical History Medical History Anemia Arthritis Basal cell carcinoma of skin Crohn's disease Gastroesophageal reflux disease History of adenomatous polyp of colon History of left breast cancer (~1999) Status post lumpectomy, chemotherapy, and radiation. Hyperlipidemia Hypertension Left leg DVT (~2000) Osteoarthritis of right hip Osteopenia Surgical History Surgical History History of cholecystectomy History of colonoscopy History of lumpectomy of left breast (~2000) With lymph node dissection for breast cancer. History of Mohs micrographic surgery for skin cancer History of tonsillectomy and adenoidectomy History of total right hip arthroplasty (~08/23/20) Family History Family History Mother Heart disease Father Hypertension Cancer Grandparent Diabetes mellitus Heart disease Social History Social History Social History: Surrogate decision maker: Syed Godoy, spouse. Code status: Full code. Smoking status: Never smoker Alcohol intake: former Substance use: never Substance use type: does not use Additional living arrangements comments: Lives
[2021-02-03 18:47] VITALS: BP 158/78; PULSE 96; RESP 16; TEMP 36.6; O2SAT 100
== END 2021-02-03 19:16 | disposition home or self-care (01) ==
PROVIDERS: Emergency Provider Nurse Practitioner
DX: S63.501A Unspecified sprain of right wrist, initial encounter (principal); W01.0XXA Fall on same level from slipping, tripping and stumbling without subsequent striking against object, initial encounter; M19.90 Unspecified osteoarthritis, unspecified site; K21.9 Gastro-esophageal reflux disease without esophagitis; E78.5 Hyperlipidemia, unspecified; I10 Essential (primary) hypertension; Z86.718 Personal history of other venous thrombosis and embolism; M85.80 Other specified disorders of bone density and structure, unspecified site; Z85.3 Personal history of malignant neoplasm of breast; Z85.828 Personal history of other malignant neoplasm of skin; K50.90 Crohn's disease, unspecified, without complications; Z92.21 Personal history of antineoplastic chemotherapy; Z92.3 Personal history of irradiation
CPT/HCPCS: 73110; 99213; G0463

== ENCOUNTER 2021-02-16 09:52 | Outpatient (CLI) | payer MEDICARE, SELFPAY ==
[2021-02-16 10:10] LABS: Basophils Percent Auto 0.2 % (0.2-1.2); Eosinophils Absolute Auto 0.1 K/mm3 (0-0.3); Eosinophils Percent Auto 2.3 % (0-4.4); Hematocrit 34.3 % (37.0-47.0); Hemoglobin 10.9 g/dL (12.0-15.0); Immature Granulocyte Absolute 0.02 K/mm3 (0.00-0.031); Immature Granulocyte Percent A 0.3 % (0-0.5); Lymphocytes Absolute Auto 1.95 K/mm3 (0.9-3.2); Lymphocytes Percent Auto 31.5 % (18.3-44.2); Mean Corpuscular HGB Conc 31.8 g/dl (32-36); Mean Corpuscular Hemoglobin 30.1 pg (26-34); Mean Corpuscular Volume 94.8 fl (80-100); Monocytes Absolute Auto 0.5 K/mm3 (0.1-0.6); Monocytes Percent Auto 7.9 % (2.6-8.5); Neutrophils Absolute Auto 3.6 K/mm3 (1.3-6.7); Neutrophils Percent Auto 57.8 % (45.5-73.1); Platelet Count Result 269 k/mm3 (150-375); Red Blood Count 3.62 M/mm3 (4.2-5.4); Red Cell Distribution Width 13.2 % (11.5-14.5); White Blood Count 6.2 K/mm3 (4.5-10.0)
[2021-02-16 12:30] LABS: Iron 96 ug/dL (37-170)
[2021-02-16 12:31] LABS: Alanine Aminotransferase 19 U/L (4-35); Albumin Level 4.3 g/dL (3.5-5.1); Alkaline Phosphatase 90 U/L (38-126); Anion Gap 8 mmol/L (8-16); Aspartate Amino Transferase 24 U/L (14-36); Bilirubin,Total 0.3 mg/dL (0.2-1.3); Blood Urea Nitrogen 19 mg/dL (7-17); Calcium 9.4 mg/dL (8.4-10.2); Carbon Dioxide 26 mmol/L (22-30); Chloride 105 mmol/L (98-107); Estimated Glomerular Filt Rate > 60; Glucose 97 mg/dL (65-105); Potassium 4.1 mmol/L (3.4-5.0); Sodium 139 mmol/L (137-145)
[2021-02-16 12:40] LABS: Percent Iron Saturation 30 % (20-50)
[2021-02-16 12:43] LABS: Cholesterol 168 mg/dL (0-200); HDL Direct 53 mg/dL; Triglycerides 86 mg/dL (<150)
[2021-02-16 12:48] LABS: Free T4 Free Thyroxine 1.03 ng/mL (0.78-2.19); Vitamin D 25 Hydroxy 66.4 ng/mL
[2021-02-16 12:54] LABS: LDL Cholesterol Direct 86 mg/dL
[2021-02-16 13:15] LABS: Thyroid Stimulating Hormone < 0.015 uIU/mL (0.465-4.680)
[2021-02-16 13:43] LABS: Folic Acid > 20.0 ng/mL (2.76->20)
== END 2021-02-16 09:53 | disposition home or self-care (01) ==
LOC: ANHLAB 09:54
PROVIDERS: PCP Internal Medicine; Visit Provider Internal Medicine Hematology & Oncology
DX: E78.5 Hyperlipidemia, unspecified (principal); E55.9 Vitamin D deficiency, unspecified; D64.9 Anemia, unspecified
CPT/HCPCS: 36415; 80053; 80061; 82306; 82607; 82728; 82746; 83540; 83550; 84439; 84443; 85025

== ENCOUNTER 2021-04-12 09:35 | Outpatient (CLI) | payer MEDICARE, SELFPAY ==
--- NOTE | ~2021-04-12 | MM_ITS ---
EXAMINATION: MM screening doretha BI w constantino HISTORY: Screening mammogram TECHNIQUE: Craniocaudal and mediolateral oblique 3-D tomosynthesis images were obtained and synthetic 2-D images were generated. CAD analysis was submitted and interpreted. COMPARISON: No prior mammogram is available for comparison at this institution. BREAST PARENCHYMAL COMPOSITION: FINDINGS: Left breast: Status post left partial mastectomy for breast cancer; stable scarring posteriorly in th e upper outer quadrant of the left breast. Biopsy marker in the posterior upper outer left breast. No interval mass or new architectural distortion, malignant calcification, skin thickening or retract ion is evident. Right breast: Biopsy marker is noted on the right. History of prior benign right breast biopsy. Stable intramammary lymph node in the upper outer right breast. 5 mm mass is suggested in the right breast 2 cm deep to the nipple in the superior subareolar area. New 5.7 mm mass is suggested in the posterior lower right breast on MLO view. Diagnostic right mammogram and right breast ultrasound examination are recommended. IMPRESSION: 1. Right breast masses 2. Diagnostic right mammogram and right breast ultrasound examination are recommended. BI-RADS Category 0: Incomplete: Needs additional imaging evaluation. Reviewed, dictated and finalized at location A. IMPRESSION: 1. Right breast masses 2. Diagnostic right mammogram and right breast ultrasound examination are recom mended. BI-RADS Category 0: Incomplete: Needs additional imaging evaluation.
== END 2021-04-12 09:36 | disposition home or self-care (01) ==
PROVIDERS: PCP Internal Medicine; Visit Provider Nurse Practitioner Adult Health
DX: Z12.31 Encounter for screening mammogram for malignant neoplasm of breast (principal)
CPT/HCPCS: 77063; 77067

== ENCOUNTER 2021-04-17 08:39 | Outpatient (CLI) | payer MEDICARE, SELFPAY ==
--- NOTE | ~2021-04-17 | MMUS_ITS ---
EXAMINATION: MM diagnostic mammo unilat RT, US breast RT limited HISTORY: Right breast masses on screening mammogram TECHNIQUE: Additional 3-D tomosynthesis images of the right breast were performed and synthetic 2-D i mages were generated. CAD analysis was submitted and interpreted. High resolution limited right breas t ultrasound was performed. COMPARISON: 04/12/2021, 05/25/2020, 04/10/2020, 04/07/2019 FINDINGS: MAMMOGRAPHIC FINDINGS: There is an 8 mm oval, obscured, equal density mass in the middle third of the slightly outer breast at the 11:00 to 12:00 location 3 cm from the nipple. With spot compression, this has a similar appear ance to prior mammograms. ULTRASOUND: There is a stable 8 mm x 5 mm oval, circumscribed, parallel, anechoic mass with thin internal septati on, posterior acoustic enhancement, and no internal vascularity at the 12:00 location 3 cm from the n ipple. Also seen is a stable 8 mm x 3 mm oval, circumscribed, parallel, hypoechoic mass at the 2:00 l ocation 2 cm from the nipple with no posterior features or internal vascularity. IMPRESSION: 1. Benign right breast masses without mammographic or sonographic evidence of malignancy. 2. Recommend routine screening mammography in one year. BI-RADS Category 2: Benign finding(s). Reviewed, dictated and finalized at location A. IMPRESSION: 1. Benign right breast masses without mammographic or sonographic evidence of m alignancy. 2. Recommend routine screening mammography in one year. BI-RADS Category 2: Benign finding(s).
== END 2021-04-17 08:40 | disposition home or self-care (01) ==
LOC: CHSIMG 08:40
PROVIDERS: PCP Internal Medicine; Visit Provider Internal Medicine Hematology & Oncology
DX: R92.8 Other abnormal and inconclusive findings on diagnostic imaging of breast (principal)
CPT/HCPCS: 76642; 77065

== ENCOUNTER 2021-05-17 10:04 | Outpatient (CLI) | payer MEDICARE, SELFPAY ==
[2021-05-17 10:35] LABS: Basophils Percent Auto 0.4 % (0.2-1.2); Eosinophils Absolute Auto 0.1 K/mm3 (0-0.3); Hematocrit 33.2 % (37.0-47.0); Hemoglobin 10.7 g/dL (12.0-15.0); Immature Granulocyte Absolute 0.02 K/mm3 (0.00-0.031); Immature Granulocyte Percent A 0.4 % (0-0.5); Lymphocytes Percent Auto 25.8 % (18.3-44.2); Mean Corpuscular HGB Conc 32.2 g/dl (32-36); Mean Corpuscular Hemoglobin 30.7 pg (26-34); Mean Corpuscular Volume 95.4 fl (80-100); Mean Platelet Volume 9.1 fl (7.4-10.4); Monocytes Absolute Auto 0.5 K/mm3 (0.1-0.6); Neutrophils Absolute Auto 3.4 K/mm3 (1.3-6.7); Neutrophils Percent Auto 62.4 % (45.5-73.1); Platelet Count Result 257 k/mm3 (150-375); Red Blood Count 3.48 M/mm3 (4.2-5.4); Red Cell Distribution Width 12.2 % (11.5-14.5); White Blood Count 5.4 K/mm3 (4.5-10.0)
[2021-05-17 12:03] LABS: Alanine Aminotransferase 22 U/L (4-35); Albumin Level 4.5 g/dL (3.5-5.1); Alkaline Phosphatase 103 U/L (38-126); Anion Gap 11 mmol/L (8-16); Aspartate Amino Transferase 26 U/L (14-36); Bilirubin,Total 0.4 mg/dL (0.2-1.3); Blood Urea Nitrogen 14 mg/dL (7-17); Calcium 10.1 mg/dL (8.4-10.2); Carbon Dioxide 26 mmol/L (22-30); Chloride 99 mmol/L (98-107); Cholesterol 191 mg/dL (0-200); Estimated Glomerular Filt Rate > 60; Glucose 93 mg/dL (65-105); HDL Direct 58 mg/dL; Sodium 136 mmol/L (137-145); Triglycerides 94 mg/dL (<150)
[2021-05-17 12:14] LABS: LDL Cholesterol Direct 82 mg/dL
[2021-05-17 12:26] LABS: Vitamin D 25 Hydroxy 68.8 ng/mL
[2021-05-17 12:34] LABS: Thyroid Stimulating Hormone < 0.015 uIU/mL (0.465-4.680)
== END 2021-05-17 10:05 | disposition home or self-care (01) ==
LOC: ANHLAB 10:11
PROVIDERS: PCP Internal Medicine; Visit Provider Internal Medicine Hematology & Oncology
DX: D64.9 Anemia, unspecified (principal); R94.6 Abnormal results of thyroid function studies; E55.9 Vitamin D deficiency, unspecified; E78.5 Hyperlipidemia, unspecified
CPT/HCPCS: 36415; 80053; 80061; 82306; 84439; 84443; 85025

== ENCOUNTER 2021-08-17 09:41 | Outpatient (CLI) | payer MEDICARE, SELFPAY ==
[2021-08-17 10:07] LABS: Basophils Percent Auto 0.2 % (0.2-1.2); Eosinophils Absolute Auto 0.1 K/mm3 (0-0.3); Eosinophils Percent Auto 2.4 % (0-4.4); Hematocrit 32.3 % (37.0-47.0); Hemoglobin 10.2 g/dL (12.0-15.0); Immature Granulocyte Absolute 0.02 K/mm3 (0.00-0.031); Immature Granulocyte Percent A 0.4 % (0-0.5); Lymphocytes Absolute Auto 1.92 K/mm3 (0.9-3.2); Lymphocytes Percent Auto 36.2 % (18.3-44.2); Mean Corpuscular HGB Conc 31.6 g/dl (32-36); Mean Corpuscular Hemoglobin 30.9 pg (26-34); Mean Corpuscular Volume 97.9 fl (80-100); Mean Platelet Volume 8.9 fl (7.4-10.4); Monocytes Absolute Auto 0.5 K/mm3 (0.1-0.6); Neutrophils Absolute Auto 2.8 K/mm3 (1.3-6.7); Neutrophils Percent Auto 51.8 % (45.5-73.1); Platelet Count Result 285 k/mm3 (150-375); Red Cell Distribution Width 12.3 % (11.5-14.5); White Blood Count 5.3 K/mm3 (4.5-10.0)
[2021-08-17 12:33] LABS: Iron 65 ug/dL (37-170)
[2021-08-17 12:54] LABS: Percent Iron Saturation 20 % (20-50)
[2021-08-17 13:08] LABS: Alanine Aminotransferase 22 U/L (4-35); Albumin Level 4.5 g/dL (3.5-5.1); Alkaline Phosphatase 82 U/L (38-126); Anion Gap 8 mmol/L (8-16); Aspartate Amino Transferase 49 U/L (14-36); Bilirubin,Total 0.5 mg/dL (0.2-1.3); Blood Urea Nitrogen 19 mg/dL (7-17); Carbon Dioxide 27 mmol/L (22-30); Chloride 105 mmol/L (98-107); Estimated Glomerular Filt Rate > 60; Glucose 90 mg/dL (65-110); Potassium 3.8 mmol/L (3.4-5.0); Sodium 140 mmol/L (137-145)
[2021-08-17 14:19] LABS: Folic Acid > 20.0 ng/mL (2.76->20)
== END 2021-08-17 09:42 | disposition home or self-care (01) ==
PROVIDERS: PCP Internal Medicine; Visit Provider Internal Medicine Hematology & Oncology
DX: D64.9 Anemia, unspecified (principal)
CPT/HCPCS: 36415; 80053; 82607; 82728; 82746; 83540; 83550; 85025

== ENCOUNTER 2021-10-29 17:05 | Emergency (ER) | payer MEDICARE, SELFPAY ==
[2021-10-29 17:10] VITALS: BP 163/96; PULSE 127; RESP 20; TEMP 36.9; O2SAT 98
--- NOTE | 2021-10-29 18:21 | ED.GENADULT ---
HPI - General Adult General Chief complaint: Back Pain/Injury Stated complaint: Back pain Time Seen by Provider: 10/29/21 18:08 Source: patient and RN notes reviewed Mode of arrival: ambulatory Limitations: no limitations History of Present Illness HPI narrative: Patient presents today complaining of low back pain. States her pain was present upon waking this morning. Denies radiation of the pain. Denies numbness or tingling. Denies any loss of bowel or bladder control. She is currently pain-free at rest, which increases to 7/10 with any movement. Pain increases when she tries to lie down, twist in bed, or go from a sitting to standing position. She has tried Tylenol without relief. She tried some topical Aleve and ice, which very slightly. MD complaint: Low back pain Related Data Home Medications Medication Instructions Recorded Confirmed Dexilant 60 mg PO DAILY 10/25/19 10/17/21 Glucosamine Chondroitin 1 cap PO BID 10/25/19 10/17/21 Multivitamin Women 50 Plus 1 tablet PO DAILY 10/25/19 10/17/21 acidophilus-pectin, citrus 1 cap PO HS 10/25/19 10/17/21 [Acidophilus Probiotic] atorvastatin 40 mg PO DAILY 10/25/19 10/17/21 psyllium husk [Fiber-Caps 0.52 g PO DAILY MDD 5 10/25/19 08/26/20 (psyllium husk)] valsartan-hydrochlorothiazide 1 tablet PO DAILY 10/25/19 08/26/20 aspirin 81 mg capsule 81 mg PO DAILY 07/05/21 10/17/21 valsartan-hydrochlorothiazide 80 tablet PO DAILY 10/17/21 10/17/21 Allergies Allergy/AdvReac Type Severity Reaction Status Date / Time ibuprofen Allergy Mild CROHN'S Verified 07/05/21 09:05 FLARE UP naproxen [From Aleve] Allergy Mild CROHN'S Verified 07/05/21 09:05 FLARE UP adhesive tape Allergy Unknown RASH Verified 07/05/21 09:05 bacitracin Allergy Unknown RASH Verified 07/05/21 09:05 codeine Allergy Unknown FACIAL Verified 07/05/21 09:05 SWELLING gramicidin D Allergy Unknown RASH Verified 07/05/21 09:05 neomycin Allergy Unknown Rash Verified 07/05/21 09:05 [From Neosporin ([id number])] polymyxin B Allergy Unknown RASH Verified 07/05/21 09:05 Review of Systems Review of Systems: CONSTITUTIONAL: Denies body aches, fever, chills, or sweats. EYES: Denies visual changes, redness, or discharge. ENT: Denies rhinorrhea, congestion, sore throat, or otalgia. CARDIOVASCULAR: Denies chest pain, palpitations, or edema. RESPIRATORY: Denies cough or dyspnea. GASTROINTESTINAL: Denies abdominal pain, nausea, vomiting, or diarrhea. GENITOURINARY: Denies dysuria or hematuria. SKIN: Denies rash, itching, or wounds. MUSCULOSKELETAL: Denies joint pain, or myalgia.+ Low back pain NEUROLOGIC: Denies headache, numbness, tingling, or weakness. PSYCH: Denies depression or anxiety. [facility] Past Medical History Medical History Anemia Arthritis Basal cell carcinoma of skin Crohn's disease Gastroesophageal reflux disease History of adenomatous polyp of colon History of left breast cancer (~1999) Status post lumpectomy, chemotherapy, and radiation. Hyperlipidemia Hypertension Left leg DVT (~2000) Osteoarthritis of right hip Osteopenia Surgical History Surgical History History of cholecystectomy History of colonoscopy History of lumpectomy of left breast (~2000) With lymph node dissection for breast cancer. History of Mohs micrographic surgery for skin cancer History of tonsillectomy and adenoidectomy History of total right hip arthroplasty (~08/23/20) Family History Family History Mother Heart disease Father Hypertension Cancer Grandparent Diabetes mellitus Heart disease Social History Social History Social History: Surrogate decision maker: Syed Godoy, spouse. Code status: Full code. Smoking status: Never smoker
== END 2021-10-29 18:30 | disposition home or self-care (01) ==
PROVIDERS: Emergency Provider Nurse Practitioner; PCP Internal Medicine
DX: S39.012A Strain of muscle, fascia and tendon of lower back, initial encounter (principal); X58.XXXA Exposure to other specified factors, initial encounter; M16.11 Unilateral primary osteoarthritis, right hip; Z85.828 Personal history of other malignant neoplasm of skin; Z85.3 Personal history of malignant neoplasm of breast; K50.90 Crohn's disease, unspecified, without complications; K21.9 Gastro-esophageal reflux disease without esophagitis; E78.5 Hyperlipidemia, unspecified; I10 Essential (primary) hypertension; Z86.718 Personal history of other venous thrombosis and embolism; M81.0 Age-related osteoporosis without current pathological fracture
CPT/HCPCS: 99213; G0463

== ENCOUNTER 2021-10-31 15:38 | Emergency (ER) | payer MEDICARE, SELFPAY ==
[2021-10-31 15:48] VITALS: BP 154/77; PULSE 90; RESP 16; TEMP 36.8; O2SAT 99
--- NOTE | 2021-10-31 16:57 | ED.BACK ---
HPI - Back Pain/Injury General Chief Complaint: Back Pain/Injury Stated Complaint: BACK PAIN Source: patient and RN notes reviewed Limitations: no limitations History of Present Illness HPI Narrative: The elderly patient, on several meds and prior history of Crohn's and right hip replacement, presents with low back pain. Patient states she has a half week history of low back pain is mild, worse with motion, began upon awakening, better at rest and unimproved with muscle relaxant/baclofen provided last visit. No fever, injury, hematuria/frequency/urgency/dysuria, radiating pain, numbness/weakness, abdominal pain. Symptoms are mild, worse with activity Related Data Home Medications Medication Instructions Recorded Confirmed Dexilant 60 mg PO DAILY 10/25/19 10/17/21 Glucosamine Chondroitin 1 cap PO BID 10/25/19 10/17/21 Multivitamin Women 50 Plus 1 tablet PO DAILY 10/25/19 10/17/21 acidophilus-pectin, citrus 1 cap PO HS 10/25/19 10/17/21 [Acidophilus Probiotic] atorvastatin 40 mg PO DAILY 10/25/19 10/17/21 psyllium husk [Fiber-Caps 0.52 g PO DAILY MDD 5 10/25/19 08/26/20 (psyllium husk)] valsartan-hydrochlorothiazide 1 tablet PO DAILY 10/25/19 08/26/20 aspirin 81 mg capsule 81 mg PO DAILY 07/05/21 10/17/21 valsartan-hydrochlorothiazide 80 tablet PO DAILY 10/17/21 10/17/21 Allergies Allergy/AdvReac Type Severity Reaction Status Date / Time ibuprofen Allergy Mild CROHN'S Verified 07/05/21 09:05 FLARE UP naproxen [From Aleve] Allergy Mild CROHN'S Verified 07/05/21 09:05 FLARE UP adhesive tape Allergy Unknown RASH Verified 07/05/21 09:05 bacitracin Allergy Unknown RASH Verified 07/05/21 09:05 codeine Allergy Unknown FACIAL Verified 07/05/21 09:05 SWELLING gramicidin D Allergy Unknown RASH Verified 07/05/21 09:05 neomycin Allergy Unknown Rash Verified 07/05/21 09:05 [From Neosporin ([id number])] polymyxin B Allergy Unknown RASH Verified 07/05/21 09:05 Review of Systems Review of Systems: General/Constitutional: No weight loss,fever Eyes: N0: Redness,discharge Ears/Nose/Throat: No: Epistaxis,ear discharge Respiratory: Denies: Hemoptysis Gastrointestinal: No Vomiting, Bleeding-rectal Skin: No Lumps, eruption Neurologic: No Focal Weakness,Sz Hematologic: Denies: Petechiae/Purpura Psychiatric: No: Suicida ideationl All Other Systems: Reviewed and Negative [facility] Past Medical History Medical History Anemia Arthritis Basal cell carcinoma of skin Crohn's disease Gastroesophageal reflux disease History of adenomatous polyp of colon History of left breast cancer (~1999) Status post lumpectomy, chemotherapy, and radiation. Hyperlipidemia Hypertension Left leg DVT (~2000) Osteoarthritis of right hip Osteopenia Surgical History Surgical History History of cholecystectomy History of colonoscopy History of lumpectomy of left breast (~2000) With lymph node dissection for breast cancer. History of Mohs micrographic surgery for skin cancer History of tonsillectomy and adenoidectomy History of total right hip arthroplasty (~08/23/20) Family History Family History Mother Heart disease Father Hypertension Cancer Grandparent Diabetes mellitus Heart disease Social History Social History Social History: Surrogate decision maker: Syed Godoy, spouse. Code status: Full code. Smoking status: Never smoker Alcohol intake: former Drinks per week: 1 Alcohol use details: social Substance use: never Substance use type: does not use Additional living arrangements comments: Lives in [place] with her . 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 Gender identity (if ve
== END 2021-10-31 17:05 | disposition home or self-care (01) ==
PROVIDERS: Emergency Provider Emergency Medicine; PCP Internal Medicine
DX: M54.50 Low back pain, unspecified (principal); M19.91 Primary osteoarthritis, unspecified site; D64.9 Anemia, unspecified; K50.90 Crohn's disease, unspecified, without complications; K21.9 Gastro-esophageal reflux disease without esophagitis; E78.5 Hyperlipidemia, unspecified; I10 Essential (primary) hypertension; Z86.718 Personal history of other venous thrombosis and embolism; M85.80 Other specified disorders of bone density and structure, unspecified site; Z85.828 Personal history of other malignant neoplasm of skin; Z85.3 Personal history of malignant neoplasm of breast; Z79.82 Long term (current) use of aspirin
CPT/HCPCS: 99213; G0463

== ENCOUNTER 2021-12-19 02:10 | Day surgery (SDC) | payer MEDICARE, SELFPAY ==
[2021-10-17 14:37] VITALS: BMI 27.1
--- NOTE | 2021-12-06 10:52 | PC.NURSE ---
Verified new date and time of pt procedure with Dr. Krishnan, pt stated no changes to medical hx or home medications.
[2021-12-19 06:12] VITALS: BP 162/84; PULSE 83; RESP 18; TEMP 36.6; O2SAT 100; BMI 26.9
[2021-12-19] MEDS: LACTATED RINGERS 1,000 ML 150 ML IV CONT (06:46)
--- NOTE | 2021-12-19 06:47 | WPDANESEPPF ---
Anes - Initial Pre Proc Eval Procedure: Operation Date: 12/19/21 07:30 Proposed Procedures p Colonoscopy - Jose Stratton MD Date/Time: 12/19/21 06:47 Surgeon: Jose Stratton MD Pre Op Diagnosis: crohn's disease Patient Data Age: 76 Gender: F Height: 1.57 m Weight: 66.7 kg Last Vital Signs Temp 36.6 C 12/19/21 06:12 Pulse 83 12/19/21 06:12 Resp 18 12/19/21 06:12 BP 162/84 H 12/19/21 06:12 Pulse Ox 100 12/19/21 06:12 Allergies Allergy/AdvReac Type Severity Reaction Status Date / Time ibuprofen Allergy Mild CROHN'S Verified 12/19/21 06:28 FLARE UP naproxen [From Aleve] Allergy Mild CROHN'S Verified 12/19/21 06:28 FLARE UP adhesive tape Allergy Unknown RASH Verified 12/19/21 06:28 bacitracin Allergy Unknown RASH Verified 12/19/21 06:28 codeine Allergy Unknown FACIAL Verified 12/19/21 06:28 SWELLING gramicidin D Allergy Unknown RASH Verified 12/19/21 06:28 neomycin Allergy Unknown Rash Verified 12/19/21 06:28 [From Neosporin ([id number])] polymyxin B Allergy Unknown RASH Verified 12/19/21 06:28 Home Medications Medication Instructions Recorded Confirmed Type Glucosamine Chondroitin 1 cap PO BID 10/25/19 12/19/21 History Multivitamin Women 50 Plus 1 tablet PO DAILY 10/25/19 12/19/21 History acidophilus-pectin, citrus 1 cap PO HS 10/25/19 12/19/21 History [Acidophilus Probiotic] atorvastatin 40 mg PO DAILY 10/25/19 12/19/21 History dexlansoprazole [Dexilant] 60 mg PO DAILY 10/25/19 12/19/21 History psyllium husk [Fiber-Caps 0.52 g PO DAILY MDD 5 10/25/19 12/19/21 History (psyllium husk)] valsartan-hydrochlorothiazide 1 tablet PO DAILY 10/25/19 12/19/21 History acetaminophen 1,000 mg PO Q6HR #90 tablet 08/24/20 12/19/21 Rx aspirin 81 mg capsule 81 mg PO DAILY 07/05/21 12/19/21 History valsartan-hydrochlorothiazide 80 tablet PO DAILY 10/17/21 12/19/21 History baclofen 5 mg PO TID PRN #15 tablet 10/29/21 12/19/21 Rx prednisone 60 mg PO DAILY #15 tablet 10/31/21 12/19/21 Rx tramadol 50 - 75 mg PO TID PRN #20 tablet 10/31/21 12/19/21 Rx Patient hx anesthesia problems: none Family hx anesthesia problems: none Results Review: All pre-operative results and documents have been reviewed as part of the pre-operative evaluation. [facility] Past Medical History Medical History Anemia Arthritis Basal cell carcinoma of skin Crohn's disease Gastroesophageal reflux disease History of adenomatous polyp of colon History of left breast cancer (~1999) Status post lumpectomy, chemotherapy, and radiation. Hyperlipidemia Hypertension Left leg DVT (~2000) Osteoarthritis of right hip Osteopenia Surgical History Surgical History History of cholecystectomy History of colonoscopy History of lumpectomy of left breast (~2000) With lymph node dissection for breast cancer. History of Mohs micrographic surgery for skin cancer History of tonsillectomy and adenoidectomy History of total right hip arthroplasty (~08/23/20) Family History Family History Mother Heart disease Father Hypertension Cancer Grandparent Diabetes mellitus Heart disease Social History Social History Social History: Surrogate decision maker: Syed Godoy, spouse. Code status: Full code. Smoking status: Never smoker Alcohol intake: former Drinks per week: 1 Alcohol use details: social Substance use: never Substance use type: does not use Living arrangements: with family Additional living arrangements comments: Lives in [place] with her . Additional occupation/education comments: Retired [employer]. Gender identity (if verbalized by the patient): Female Spiritual care concerns: No Ane
--- NOTE | 2021-12-19 07:24 | PM.HPGS ---
History of Present Illness History of Present Illness Consent: Risks, benefits, and alternatives have been discussed and questions answered. Patient agrees to proceed with procedure. Chief complaint: crohn's disease Narrative: Rosaura Godoy is a 76 year old female here for colonoscopy. She has hx of crohn's disease diagnosed 1992 with last flare up late (used to be on oral medicines but she has not been taking anything for several years and never tried any biologics). Last colonoscopy by Dr Estrada 11/2019 with deformity of ICV but no active inflammation and two small TA polyps removed, no colitis, she has been getting colonoscopies every 2 years. She is doing ok, no diarrhea, no abdominal pain. Review of Systems Constitutional: Constitutional: Denies headache(s) and Denies weakness Eyes: Eyes: Denies blurry vision ENT: Reports Normal hearing present, Denies headache(s) and Denies neck pain Cardiovascular: Cardiovascular: Denies chest pain and Denies dyspnea Respiratory: Respiratory: Denies dyspnea Gastrointestinal: Gastrointestinal: Reports no additional gastrointestinal complaints Genitourinary: Genitourinary: Denies dysuria Musculoskeletal: Musculoskeletal: Denies neck pain Integumentary/Breasts: Skin/Breast: Denies dry skin Neurologic: Reports Normal hearing present, Denies headache(s) and Denies weakness Psychiatric: Psychiatric: Denies anxiety Endocrine: Endocrine: Denies change in body appearance Hematologic/Lymphatic: Hematologic/Lymphatic: Denies easy bleeding Allergic/Immunologic: Allergic/Immunologic: Denies urticaria PMFSH Past Medical History Medical History Anemia Arthritis Basal cell carcinoma of skin Crohn's disease Gastroesophageal reflux disease History of adenomatous polyp of colon History of left breast cancer (~1999) Status post lumpectomy, chemotherapy, and radiation. Hyperlipidemia Hypertension Left leg DVT (~2000) Osteoarthritis of right hip Osteopenia Surgical History Surgical History History of cholecystectomy History of colonoscopy History of lumpectomy of left breast (~2000) With lymph node dissection for breast cancer. History of Mohs micrographic surgery for skin cancer History of tonsillectomy and adenoidectomy History of total right hip arthroplasty (~08/23/20) Family History Family History Mother Heart disease Father Hypertension Cancer Grandparent Diabetes mellitus Heart disease Social History Social History Social History: Surrogate decision maker: Syed Godoy, spouse. Code status: Full code. Smoking status: Never smoker Alcohol intake: former Drinks per week: 1 Alcohol use details: social Substance use: never Substance use type: does not use Living arrangements: with family Additional living arrangements comments: Lives in [place] with her . 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 Gender identity (if verbalized by the patient): Female Spiritual care concerns: No Meds Home Medications and Allergies Home Medications Medication Instructions Recorded Confirmed Type Glucosamine Chondroitin 1 cap PO BID 10/25/19 12/19/21 History Multivitamin Women 50 Plus 1 tablet PO DAILY 10/25/19 12/19/21 History acidophilus-pectin, citrus 1 cap PO HS 10/25/19 12/19/21 History [Acidophilus Probiotic] atorvastatin 40 mg PO DAILY 10/25/19 12/19/21 History dexlansoprazole [Dexilant] 60 mg PO DAILY 10/25/19 12/19/21 History psyllium husk [Fiber-Caps 0.52 g PO DAILY MDD 5 10/25/19 12/19/21 History (psyllium husk)] valsartan-hydrochlorothiazide 1 tablet PO DAILY 10/25/19 12/19/21 History acetaminophen 1,000 mg PO Q6HR #90 tablet 08/24/20 12/19/21 Rx
[2021-12-19 07:46] VITALS: BP 101/46; PULSE 78; RESP 17; O2SAT 100
--- NOTE | 2021-12-19 07:47 | SUR.OPER ---
DR HOBBS AWARE SIGMOID COLON POLYP WAS NOT RETRIEVED. Alex REYNAGA RN/ Yary MCCLELLAN RN
[2021-12-19 07:56] VITALS: BP 116/54; PULSE 73; RESP 16; O2SAT 100
[2021-12-19 08:06] VITALS: BP 127/71; PULSE 69; RESP 14; O2SAT 99
== END 2021-12-19 08:23 | disposition home or self-care (01) ==
PROVIDERS: PCP Internal Medicine; Visit Provider Internal Medicine Gastroenterology
PROC: 0DJD8ZZ Inspection of Lower Intestinal Tract, Via Natural or Artificial Opening Endoscopic (ICD-10-PCS; CPT 45378; principal; 2021-12-19 07:30)
DX: Z12.11 Encounter for screening for malignant neoplasm of colon (principal); K50.90 Crohn's disease, unspecified, without complications; D12.2 Benign neoplasm of ascending colon; D12.8 Benign neoplasm of rectum; K57.30 Diverticulosis of large intestine without perforation or abscess without bleeding; K64.8 Other hemorrhoids; Z80.0 Family history of malignant neoplasm of digestive organs; K21.9 Gastro-esophageal reflux disease without esophagitis; I10 Essential (primary) hypertension; E78.5 Hyperlipidemia, unspecified; Z85.3 Personal history of malignant neoplasm of breast; Z86.718 Personal history of other venous thrombosis and embolism; Z92.21 Personal history of antineoplastic chemotherapy; Z92.3 Personal history of irradiation
CPT/HCPCS: 45385; 88305; J2704; J7120

== ENCOUNTER 2022-02-18 09:24 | Outpatient (CLI) | payer MEDICARE, SELFPAY ==
[2022-02-18 09:47] LABS: Basophils Percent Auto 0.4 % (0.2-1.2); Eosinophils Absolute Auto 0.1 K/mm3 (0-0.3); Eosinophils Percent Auto 2.2 % (0-4.4); Hematocrit 34.9 % (37.0-47.0); Hemoglobin 10.6 g/dL (12.0-15.0); Immature Granulocyte Absolute 0.02 K/mm3 (0.00-0.031); Immature Granulocyte Percent A 0.4 % (0-0.5); Lymphocytes Absolute Auto 1.52 K/mm3 (0.9-3.2); Lymphocytes Percent Auto 28.1 % (18.3-44.2); Mean Corpuscular HGB Conc 30.4 g/dl (32-36); Mean Corpuscular Hemoglobin 30.8 pg (26-34); Mean Corpuscular Volume 101.5 fl (80-100); Mean Platelet Volume 9.4 fl (7.4-10.4); Monocytes Absolute Auto 0.4 K/mm3 (0.1-0.6); Monocytes Percent Auto 6.7 % (2.6-8.5); Neutrophils Absolute Auto 3.4 K/mm3 (1.3-6.7); Neutrophils Percent Auto 62.2 % (45.5-73.1); Platelet Count Result 259 k/mm3 (150-375); Red Blood Count 3.44 M/mm3 (4.2-5.4); White Blood Count 5.4 K/mm3 (4.5-10.0)
[2022-02-18 09:51] LABS: Blood Urea Nitrogen 13 mg/dL (8-26); Carbon Dioxide 26 mmol/L (22-30); Chloride 101 mmol/L (98-109); Estimated Glomerular Filt Rate > 60; Glucose 94 mg/dL (70-105); Ionized Calcium (POC) 1.13 mmol/L (1.11-1.31); Potassium 3.4 mmol/L (3.5-4.9); Sodium 141 mmol/L (138-146)
[2022-02-18 11:26] LABS: Alanine Aminotransferase 21 U/L (4-35); Albumin Level 4.3 g/dL (3.5-5.1); Alkaline Phosphatase 97 U/L (38-126); Anion Gap 8 mmol/L (8-16); Aspartate Amino Transferase 30 U/L (14-36); Bilirubin,Total 0.5 mg/dL (0.2-1.3); Blood Urea Nitrogen 15 mg/dL (7-17); Carbon Dioxide 26 mmol/L (22-30); Chloride 103 mmol/L (98-107); Estimated Glomerular Filt Rate > 60; Glucose 95 mg/dL (65-110); Potassium 3.5 mmol/L (3.4-5.0); Sodium 137 mmol/L (137-145)
== END 2022-02-18 09:25 | disposition home or self-care (01) ==
LOC: ANHLAB 09:26
PROVIDERS: PCP Internal Medicine; Visit Provider Internal Medicine Hematology & Oncology
DX: D50.9 Iron deficiency anemia, unspecified (principal)
CPT/HCPCS: 36415; 80047; 80053; 85025

== ENCOUNTER 2022-04-11 10:41 | Outpatient (CLI) | payer MEDICARE, SELFPAY ==
[2022-04-11 16:58] LABS: Thyroid Stimulating Hormone 0.017 uIU/mL (0.465-4.680)
[2022-04-11 22:16] LABS: Free T4 Free Thyroxine 1.24 ng/mL (0.78-2.19)
== END 2022-04-11 10:42 | disposition home or self-care (01) ==
LOC: ANHLAB 10:43
PROVIDERS: PCP Internal Medicine; Visit Provider Internal Medicine
DX: E03.9 Hypothyroidism, unspecified (principal)
CPT/HCPCS: 36415; 84439; 84443

== ENCOUNTER 2022-04-19 09:16 | Outpatient (CLI) | payer MEDICARE, SELFPAY ==
--- NOTE | ~2022-04-19 | MM_ITS ---
EXAMINATION: MM screening doretha BI w constantino HISTORY: Screening TECHNIQUE: Craniocaudal and mediolateral oblique 3-D tomosynthesis images were obtained and synthetic 2-D images were generated. CAD analysis was submitted and interpreted. COMPARISON: Comparison to multiple prior studies sequentially, with oldest reviewed study dated 03/2019. BREAST PARENCHYMAL COMPOSITION: Breast composed of scattered areas of fibroglandular density FINDINGS: Bilateral breast nodules/asymmetries are stable or diminished in size compared with prior s tudies. There is no evidence of suspicious mass, calcification, or architectural distortion to sugges t malignancy in either breast. There has been no suspicious interval change. IMPRESSION: 1. No mammographic evidence of malignancy. 2. Recommend routine screening mammography in one year. BI-RADS Category 2: Benign finding(s). Reviewed, dictated and finalized at location A.
== END 2022-04-19 09:17 | disposition home or self-care (01) ==
LOC: ANHIMG 09:19
PROVIDERS: PCP Internal Medicine; Visit Provider Internal Medicine Hematology & Oncology
DX: Z12.31 Encounter for screening mammogram for malignant neoplasm of breast (principal)
CPT/HCPCS: 77063; 77067

== ENCOUNTER 2022-04-19 17:01 | Outpatient (CLI) | payer MEDICARE, SELFPAY ==
--- NOTE | ~2022-04-19 | US_ITS ---
EXAMINATION: US thyroid DATE: 04/19/2022 18:12 INDICATION: Hypothyroidism, unspecified. TECHNIQUE: Multiple ultrasound images of the thyroid were obtained. COMPARISON: None. FINDINGS: The right thyroid lobe measures 5.6 x 1.5 x 1.7 cm. The left thyroid lobe measures 4.9 x 1.4 x 1.7 c m. In the left thyroid lobe, there is a 6 mm solid, hypoechoic, wider than tall nodule with smooth m argin without echogenic foci (TI-RADS TR4). In the right thyroid lobe, there is an 11 mm solid, hypoe choic, wider than tall nodule with punctate echogenic foci and lobulated margin (TR5). In the right t hyroid lobe, there is an 11 mm solid, hypoechoic, wider than tall nodule with ill-defined margin with out echogenic foci (TR4). In the right thyroid lobe, there is a 9 mm mixed cystic and solid, hypoecho ic, wider than tall nodule with smooth margin without echogenic foci (TR3). In the right thyroid lobe , there is a 1.3 cm solid, hypoechoic, wider than tall nodule with smooth margin without echogenic fo ci (TR4). IMPRESSION: 1. Multinodular goiter. Ultrasound-guided fine-needle aspiration of the 11 mm TR5 nodule in right thy roid lobe is recommended. Reviewed, dictated and finalized at location K. IMPRESSION: 1. Multinodular goiter. Ultrasound-guided fine-needle aspiration of the 11 mm T R5 nodule in right thyroid lobe is recommended.
== END 2022-04-19 17:02 | disposition home or self-care (01) ==
LOC: ANHIMG 17:02
PROVIDERS: PCP Internal Medicine; Visit Provider Internal Medicine
DX: E03.9 Hypothyroidism, unspecified (principal); E04.2 Nontoxic multinodular goiter
CPT/HCPCS: 76536; 77063; 77067

== ENCOUNTER 2022-05-03 13:19 | Outpatient (CLI) | payer MEDICARE, SELFPAY ==
--- NOTE | ~2022-05-03 | DEXA_ITS ---
Bone Density Report Name: JENNIFER ODONNELL Age: 76 Sex: Female Ethnicity: White Date of : 1945 Indication: monitoring treatment; height loss; cancer; postmenopausal Referring Provider: STEPHANIETIEN Study: Bone densitometry was performed. Exam Date: May 03, 2022 Accession number: [id number] Bone Density: Region BMD T-score Z-score Classification AP Spine(L1-L4) 1.023 -0.2 2.3 Normal Femoral Neck (Left) 0.701 -1.3 0.9 Osteopenia Total Hip (Left) 0.885 -0.5 1.4 Normal World Health Organization criteria for BMD impression classify patients as: Normal (T-score at or above -1.0), Osteopenia (T-score between -1.0 and -2.5), or Osteoporosis (T-score at or below -2.5). 10-year Fracture Risk: FRAX not reported because: Treated for osteoporosis Previous Exams: Region Exam Age BMD T-score BMD Change BMD Change Date g/cm2 vs Baseline vs Previous AP Spine (L1-L4) 05/03/2022 76 1.023 -0.2 0.004 (0.4%) 0.004 (0.4%) 07/30/2017 71 1.020 -0.2 Total Hip(Left) 05/03/2022 76 0.885 -0.5 -0.025 (-2.7%) -0.016 (-1.8%) 09/29/2019 73 0.901 -0.3 -0.009 (-1.0%) -0.009 (-1.0%) 07/30/2017 71 0.910 -0.3 *Denotes significance at 95% confidence level, LSC for AP Spine = 0.022 g/cm2, LSC for Total Hip = 0.027 g/cm2 Clinical Information Provided by Patient: Is being treated for osteoporosis Has used the following medications: Fosamax (i.e. alendronate), Vitamin D Has the following medical conditions: Cancer Patient maximum height was 63.5 Menopause Age: 49 Drinks caffeinated beverages Onset of menses at age 11 Number of children 2 Impression: The patient has low bone mass, based on the Left Femoral Neck T-score. No significant bone loss was observed. Discussion: PATIENT UNDER TREATMENT WITH NO SIGNIFICANT BMD LOSS SINCE LAST EXAM. In an untreated patient, BMD typically declines with age. A lack of decline or gain is usually a sign that treatment is efficacious and fracture risk is reduced. It is important to ask patients whether they are taking their medications and to encourage continued and appropriate compliance with their osteoporosis therapies to reduce fracture risk. It is also important to review their risk factors and encourage appropriate calcium and vitamin D intakes, exercise, fall prevention and other lifestyle measures. Follow-Up: Consider a repeat BMD and Vertebral Fracture Assessment (VFA) exam in 2 years or sooner if medically necessary, to reassess this patient's status. Reported by: RAMON on 0
== END 2022-05-03 13:20 | disposition home or self-care (01) ==
LOC: ANHIMG 13:21
PROVIDERS: PCP Internal Medicine; Visit Provider Internal Medicine
DX: Z13.820 Encounter for screening for osteoporosis (principal); Z78.0 Asymptomatic menopausal state; M85.852 Other specified disorders of bone density and structure, left thigh
CPT/HCPCS: 77080

== ENCOUNTER 2022-06-07 09:12 | Outpatient (CLI) | payer MEDICARE, SELFPAY ==
--- NOTE | ~2022-06-07 | US_ITS ---
EXAMINATION: US FNA w image guidance DATE: 06/07/2022 10:13 INDICATION: Nontoxic single thyroid nodule. TECHNIQUE: The procedure and its benefits and risks were discussed with the patient. Risks specifically discusse d included bleeding. The patient verbalized understanding of the risks and agreed to proceed. The nec k was prepped and draped in the usual sterile manner. 1% lidocaine was used for local anesthesia. 6 passes were made with a 25G needle into the lesion under ultrasound guidance. There were no immedia te complications. FINDINGS: Grayscale ultrasound images demonstrate needles advanced into a 12 mm nodule in right thyroid lobe fo r biopsy. IMPRESSION: 1. Ultrasound-guided fine needle aspiration of a right thyroid nodule. Reviewed, dictated and finalized at location A.
== END 2022-06-07 09:13 | disposition home or self-care (01) ==
PROVIDERS: PCP Internal Medicine; Visit Provider Otolaryngology
DX: E04.1 Nontoxic single thyroid nodule (principal)
CPT/HCPCS: 10005; 88173; 88305

== ENCOUNTER 2022-06-19 08:48 | Outpatient (CLI) | payer MEDICARE, SELFPAY ==
[2022-06-19 09:57] LABS: Hematocrit 34.2 % (37.0-47.0); Hemoglobin 10.8 g/dL (12.0-15.0); Mean Corpuscular HGB Conc 31.6 g/dl (32-36); Mean Corpuscular Hemoglobin 30.9 pg (26-34); Mean Corpuscular Volume 97.7 fl (80-100); Mean Platelet Volume 10.6 fl (7.4-10.4); Platelet Count Result 234 k/mm3 (150-375); Red Cell Distribution Width 12.8 % (11.5-14.5); White Blood Count 4.8 K/mm3 (4.5-10.0)
[2022-06-19 10:10] LABS: Alanine Aminotransferase 20 U/L (6-35); Albumin Level 4.4 g/dL (3.5-5.1); Alkaline Phosphatase 90 U/L (38-126); Anion Gap 10 mmol/L (8-16); Aspartate Amino Transferase 26 U/L (14-36); Bilirubin,Total 0.6 mg/dL (0.2-1.3); Blood Urea Nitrogen 15 mg/dL (7-17); CRP < 0.5 mg/dL (<1.0); Calcium 9.6 mg/dL (8.4-10.2); Carbon Dioxide 25 mmol/L (22-30); Chloride 100 mmol/L (98-107); Estimated Glomerular Filt Rate > 60; Glucose 87 mg/dL (65-110); Sodium 135 mmol/L (137-145)
[2022-06-19 12:21] LABS: Erythrocyte Sedimentation Rate 58 mm/hr (0-20)
== END 2022-06-19 08:49 | disposition home or self-care (01) ==
LOC: ANHLAB 08:50
PROVIDERS: PCP Internal Medicine; Visit Provider Internal Medicine Gastroenterology
DX: K50.90 Crohn's disease, unspecified, without complications (principal)
CPT/HCPCS: 36415; 80053; 85027; 85652; 86140

== ENCOUNTER 2022-08-13 10:04 | Outpatient (CLI) | payer MEDICARE, SELFPAY ==
[2022-08-13 10:25] LABS: Basophils Percent Auto 0.2 % (0.2-1.2); Eosinophils Absolute Auto 0.1 K/mm3 (0-0.3); Eosinophils Percent Auto 2.5 % (0-4.4); Hemoglobin 10.4 g/dL (12.0-15.0); Immature Granulocyte Absolute 0.02 K/mm3 (0.00-0.031); Immature Granulocyte Percent A 0.4 % (0-0.5); Lymphocytes Absolute Auto 1.27 K/mm3 (0.9-3.2); Lymphocytes Percent Auto 24.6 % (18.3-44.2); Mean Corpuscular HGB Conc 31.5 g/dl (32-36); Mean Corpuscular Volume 98.5 fl (80-100); Mean Platelet Volume 9.3 fl (7.4-10.4); Monocytes Absolute Auto 0.4 K/mm3 (0.1-0.6); Monocytes Percent Auto 7.8 % (2.6-8.5); Neutrophils Absolute Auto 3.3 K/mm3 (1.3-6.7); Neutrophils Percent Auto 64.5 % (45.5-73.1); Platelet Count Result 245 k/mm3 (150-375); Red Blood Count 3.35 M/mm3 (4.2-5.4); Red Cell Distribution Width 12.2 % (11.5-14.5); White Blood Count 5.2 K/mm3 (4.5-10.0)
[2022-08-13 10:29] LABS: Blood Urea Nitrogen 16 mg/dL (8-26); Carbon Dioxide 27 mmol/L (22-30); Chloride 100 mmol/L (98-109); Estimated Glomerular Filt Rate > 60; Glucose 92 mg/dL (70-105); Potassium 3.6 mmol/L (3.5-4.9); Sodium 140 mmol/L (138-146)
[2022-08-13 12:02] LABS: Alanine Aminotransferase 22 U/L (6-35); Albumin Level 4.3 g/dL (3.5-5.1); Alkaline Phosphatase 94 U/L (38-126); Anion Gap 8 mmol/L (8-16); Aspartate Amino Transferase 26 U/L (14-36); Bilirubin,Total 0.6 mg/dL (0.2-1.3); Blood Urea Nitrogen 17 mg/dL (7-17); Calcium 8.9 mg/dL (8.4-10.2); Carbon Dioxide 28 mmol/L (22-30); Chloride 101 mmol/L (98-107); Estimated Glomerular Filt Rate > 60; Glucose 93 mg/dL (65-110); Potassium 3.6 mmol/L (3.4-5.0); Sodium 137 mmol/L (137-145)
== END 2022-08-13 10:05 | disposition home or self-care (01) ==
PROVIDERS: PCP Internal Medicine; Visit Provider Internal Medicine Hematology & Oncology
DX: D50.9 Iron deficiency anemia, unspecified (principal)
CPT/HCPCS: 36415; 80047; 80053; 85025

== ENCOUNTER 2022-09-19 14:36 | Outpatient (CLI) | payer MEDICARE, SELFPAY ==
[2022-09-19 16:31] LABS: Cholesterol 184 mg/dL (0-200); HDL Direct 58 mg/dL; Triglycerides 93 mg/dL (<150)
[2022-09-19 16:44] LABS: LDL Cholesterol Direct 81 mg/dL
[2022-09-19 17:04] LABS: Thyroid Stimulating Hormone 0.043 uIU/mL (0.465-4.680)
[2022-09-19 17:34] LABS: Free T4 Free Thyroxine 1.14 ng/mL (0.78-2.19); Vitamin D 25 Hydroxy 66.8 ng/mL
== END 2022-09-19 14:37 | disposition home or self-care (01) ==
LOC: ANHLAB 14:37
PROVIDERS: PCP Internal Medicine; Visit Provider Internal Medicine
DX: Z79.899 Other long term (current) drug therapy (principal)
CPT/HCPCS: 36415; 80061; 82306; 84439; 84443

== ENCOUNTER 2022-12-09 10:27 | Outpatient (CLI) | payer MEDICARE, SELFPAY ==
--- NOTE | ~2022-12-09 | US_ITS ---
EXAMINATION: US thyroid DATE: 12/09/2022 11:14 INDICATION: Nontoxic multinodular goiter. TECHNIQUE: Multiple ultrasound images of the thyroid were obtained. COMPARISON: Ultrasound 04/19/2022, 06/07/22 FINDINGS: The right thyroid lobe measures 4.6 x 1.4 x 1.9 cm. The left thyroid lobe measures 4.8 x 1.4 x 1.7 c m. In the right thyroid lobe, there is a 13 mm solid, hypoechoic, wider than tall nodule with smooth margin without echogenic foci (TI-RADS TR4). In the right thyroid lobe, there is an 8 mm mixed cysti c and solid, hypoechoic, wider than tall nodule with smooth margin without echogenic foci (TR3). In t he right thyroid lobe, there is 11 mm solid, hypoechoic, wider than tall nodule with ill-defined alannah in without echogenic foci (TR4). In the right thyroid lobe, there is an 11 mm solid, isoechoic, wider than tall nodule with ill-defined margin and microcalcifications (TR4). In the left thyroid lobe, th ere is a 6 mm solid, hypoechoic, wider than tall nodule with smooth margin without echogenic foci (TR 4). IMPRESSION: 1. Multinodular goiter. Thyroid ultrasound is recommended in one year. Reviewed, dictated and finalized at location A. MANAGER
== END 2022-12-09 10:28 | disposition home or self-care (01) ==
PROVIDERS: PCP Internal Medicine; Visit Provider Otolaryngology
DX: E04.2 Nontoxic multinodular goiter (principal)
CPT/HCPCS: 76536

== ENCOUNTER 2023-01-27 00:18 | Day surgery (SDC) | payer MEDICARE, SELFPAY ==
[2023-01-27] VITALS (8 sets, daily range): BP systolic 153–170; BP diastolic 74–87; PULSE 85–94; RESP 13–21; TEMP 36.4; O2SAT 97–99; BMI 27.1
--- NOTE | 2023-01-27 08:58 | WPDMODSED ---
Moderate Sedation Note-Pt Data Patient Data Diagnosis: Recurrent/unexplained syncope Present Complaint: Intermittent syncope Procedure to be performed/Plan: Implantation of loop recorder Allergies Allergy/AdvReac Type Severity Reaction Status Date / Time codeine Allergy Severe FACIAL Verified 01/27/23 07:59 SWELLING adhesive tape Allergy Intermediate RASH Verified 01/27/23 07:59 bacitracin Allergy Intermediate RASH Verified 01/27/23 07:59 gramicidin D Allergy Intermediate RASH Verified 01/27/23 07:59 neomycin Allergy Intermediate Rash Verified 01/27/23 07:59 [From Neosporin ([id number])] polymyxin B Allergy Intermediate RASH Verified 01/27/23 07:59 ibuprofen AdvReac Mild CROHN'S Verified 01/27/23 07:59 FLARE UP naproxen [From Aleve] AdvReac Mild CROHN'S Verified 01/27/23 07:59 FLARE UP Home Medications Medication Instructions Recorded Confirmed Type acidophilus 100 million 1 cap PO HS 10/25/19 01/27/23 History cell-pectin, citrus 10 mg capsule (Acidophilus Probiotic) atorvastatin 40 mg tablet 40 mg PO DAILY 10/25/19 01/27/23 History multivit with 1 tablet PO DAILY 10/25/19 01/27/23 History dxhsudsh-bxlp-FU-lutein 8 mg iron-400 mcg-300 mcg tablet (Multivitamin Women 50 Plus) psyllium husk 0.52 gram capsule 0.52 g PO DAILY 10/25/19 01/27/23 History (Fiber-Caps (psyllium husk)) valsartan 80 1 tablet PO DAILY 10/25/19 01/24/23 History mg-hydrochlorothiazide 12.5 mg tablet acetaminophen 500 mg tablet 1,000 mg PO Q6HR PRN Pain 01/24/23 01/27/23 History Sedation/Anesthesia: No previous sedation/anesthesia problems (including family history). [facility] Past Medical History Medical History Anemia Arthritis Basal cell carcinoma of skin Crohn's disease Gastroesophageal reflux disease History of adenomatous polyp of colon History of left breast cancer (~1999) Status post lumpectomy, chemotherapy, and radiation. Hyperlipidemia Hypertension Left leg DVT (~2000) Osteoarthritis of right hip Osteopenia Surgical History Surgical History History of cholecystectomy History of colonoscopy History of lumpectomy of left breast (~2000) With lymph node dissection for breast cancer. History of Mohs micrographic surgery for skin cancer History of tonsillectomy and adenoidectomy History of total right hip arthroplasty (~08/23/20) Family History Family History Mother Heart disease Father Hypertension Cancer Grandparent Diabetes mellitus Heart disease Social History Social History Social History: Surrogate decision maker: Syed Godoy, spouse. Code status: Full code. Smoking status: Never smoker Alcohol intake: former Drinks per week: 1 Alcohol use details: social Substance use: never Substance use type: does not use Living arrangements: with family Additional living arrangements comments: Lives in [place] with her . 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 Gender identity (if verbalized by the patient): Female Spiritual care concerns: No Mod Sed Physical Exam Physical Exam Pre Procedural Exam: Normal: Appearance, Nose, Neck, Throat, Airway, Lungs, Heart Size, Heart Rate, Heart Rhythm, Neuro Exam and Extremities Hours since solid foods: 12 Hours since liquid intake: 12 Mallampati Classification: class II Internal Medicine - PN: Obj Da Vital Signs Vital Signs: Vital Signs - 24 hr 01/27/23 08:03 Temperature 36.4 C L Pulse Rate 85 Respiratory Rate 21 H Blood Pressure 163/74 H Pulse Oximetry 99 Oxygen Delivery Room Air ASA Classification/Sedation ASA Classification/Sedation ASA Class: II Emergent: No Risks: Risks, benef
--- NOTE | 2023-01-27 09:27 | P.PCNCC_ITS ---
Cardiac Cath Procedure Note Date of procedure:: 01/27/23 Performing physician:: Nelson Dotson MD Indication:: Recurrent syncope Brief clinical history:: This is a 77-year-old woman with episodes of recurrent syncope which have been unexplained Procedure Procedure performed:: Implantation of loop recorder Sedation/Medication given:: No sedation Access site:: Left anterior chest wall Estimated blood loss:: Minimal Procedure note:: The patient was brought to the cardiac catheterization lab holding area left anterior chest wall was inspected and a natalie was made in the midclavicular line in the 4th intercostal space. The area was then sterilely prepped and draped. 1% lidocaine was infused at the site of the puncture and following this the insertion kit for the loop recorder was opened. The puncture blade was used to create a stab wound at the premarked site. The insertion tool was then used to deploy the Medtronic LINQ device inferior to the puncture which was easy and uneventful. Manual pressure was held and trouble bile glue was placed on the puncture and a Band-Aid. Findings:: Patient received a Medtronic LINQ 2 loop recorder model LNQ22 serial number [id number]. Following deployment telemetry demonstrates good QRS sensing amplitude 0.34 and good P-wave sensing as well. Conclusion:: Uncomplicated uneventful implant of Medtronic LINQ 2 event monitor in this patient with recurrent syncope of unclear etiology Nelson Dotson MD [facility]
--- NOTE | 2023-01-27 10:10 | SUR.OPER ---
operative site lt upper chest d/i with skin glue and large bandaid. Pt denies pain. Instructions reviewed with pt and copy to pt. understanding verbalized. pt will be escorted to cardiology office to obtain 1 week f/u appointment. d/c ambulatory in stable condition
== END 2023-01-27 10:10 | disposition home or self-care (01) ==
PROVIDERS: PCP Internal Medicine; Visit Provider Specialist
PROC: (CPT 33285; principal; 2023-01-27 08:30)
DX: R55 Syncope and collapse (principal); I10 Essential (primary) hypertension; E78.5 Hyperlipidemia, unspecified; Z85.3 Personal history of malignant neoplasm of breast; Z86.718 Personal history of other venous thrombosis and embolism
CPT/HCPCS: 33285; C1764

== ENCOUNTER 2023-03-19 08:50 | Outpatient (CLI) | payer MEDICARE, SELFPAY ==
[2023-03-19 09:09] LABS: Basophils Percent Auto 0.2 % (0.2-1.2); Eosinophils Absolute Auto 0.2 K/mm3 (0-0.3); Eosinophils Percent Auto 2.6 % (0-4.4); Hematocrit 34.6 % (37.0-47.0); Hemoglobin 11.2 g/dL (12.0-15.0); Immature Granulocyte Absolute 0.02 K/mm3 (0.00-0.031); Immature Granulocyte Percent A 0.3 % (0-0.5); Lymphocytes Absolute Auto 1.34 K/mm3 (0.9-3.2); Lymphocytes Percent Auto 21.7 % (18.3-44.2); Mean Corpuscular HGB Conc 32.4 g/dl (32-36); Mean Corpuscular Hemoglobin 31.4 pg (26-34); Mean Corpuscular Volume 96.9 fl (80-100); Mean Platelet Volume 9.2 fl (7.4-10.4); Monocytes Absolute Auto 0.5 K/mm3 (0.1-0.6); Monocytes Percent Auto 7.9 % (2.6-8.5); Neutrophils Absolute Auto 4.2 K/mm3 (1.3-6.7); Neutrophils Percent Auto 67.3 % (45.5-73.1); Platelet Count Result 257 k/mm3 (150-375); Red Blood Count 3.57 M/mm3 (4.2-5.4); Red Cell Distribution Width 12.4 % (11.5-14.5); White Blood Count 6.2 K/mm3 (4.5-10.0)
[2023-03-19 11:15] LABS: Alanine Aminotransferase 26 U/L (6-35); Albumin Level 4.5 g/dL (3.5-5.1); Alkaline Phosphatase 85 U/L (38-126); Anion Gap 8 mmol/L (8-16); Aspartate Amino Transferase 46 U/L (14-36); Bilirubin,Total 0.6 mg/dL (0.2-1.3); Blood Urea Nitrogen 19 mg/dL (7-17); Calcium 9.2 mg/dL (8.4-10.2); Carbon Dioxide 29 mmol/L (22-30); Chloride 100 mmol/L (98-107); Cholesterol 189 mg/dL (0-200); Estimated Glomerular Filt Rate > 60; Glucose 95 mg/dL (65-110); HDL Direct 54 mg/dL; Sodium 137 mmol/L (137-145); Triglycerides 108 mg/dL (<150)
[2023-03-19 11:31] LABS: Free T4 Free Thyroxine 1.07 ng/mL (0.78-2.19); Vitamin D 25 Hydroxy 64.5 ng/mL
[2023-03-19 11:44] LABS: Thyroid Stimulating Hormone 0.015 uIU/mL (0.465-4.680)
[2023-03-19 12:35] LABS: LDL Cholesterol Direct 85 mg/dL
== END 2023-03-19 08:51 | disposition home or self-care (01) ==
LOC: ANHLAB 08:52
PROVIDERS: PCP Internal Medicine; Visit Provider Internal Medicine Hematology & Oncology
DX: D64.9 Anemia, unspecified (principal); E78.5 Hyperlipidemia, unspecified; E55.9 Vitamin D deficiency, unspecified
CPT/HCPCS: 36415; 80053; 80061; 82306; 84439; 84443; 85025

== ENCOUNTER 2023-07-15 08:52 | Outpatient (CLI) | payer MEDICARE, SELFPAY ==
--- NOTE | ~2023-07-15 | MM_ITS ---
EXAMINATION: MM screening doretha BI w constantino HISTORY: Screening mammogram TECHNIQUE: Craniocaudal and mediolateral oblique 3-D tomosynthesis images were obtained and synthetic 2-D images were generated. CAD analysis was submitted and interpreted. COMPARISON: 04/19/2022 bilateral screening mammogram 04/17/2021 diagnostic right mammogram and limited right breast ultrasound examination 04/12/2021 bilateral screening mammogram BREAST PARENCHYMAL COMPOSITION: There are scattered areas of fibroglandular density. FINDINGS: bus monitor device is noted on the left. Status post left partial mastectomy for breast cancer in 1999. There is stable postoperative scarring in the posterior upper outer left breast. Biopsy marker on the right seminal history of prior benign right breast biopsy in 2019. There is no evidence of suspicious mass, calcification, or interval architectural distortion to sugg est malignancy in either breast. There has been no suspicious interval change. IMPRESSION: 1. Status post left partial mastectomy for breast cancer. No mammographic evidence of malignancy or s ignificant change since 04/12/2021 2. Recommend routine screening mammography in one year. BI-RADS Category 2: Benign finding(s). Reviewed, dictated and finalized at location A. IMPRESSION: 1. Status post left partial mastectomy for breast cancer. No mammographic evide nce of malignancy or significant change since 04/12/2021 2. Recommend routine screening mammography in one year. BI-RADS Category 2: Benign finding(s).
== END 2023-07-15 08:53 | disposition home or self-care (01) ==
PROVIDERS: PCP Internal Medicine; Visit Provider Internal Medicine Hematology & Oncology
DX: Z12.31 Encounter for screening mammogram for malignant neoplasm of breast (principal); Z90.12 Acquired absence of left breast and nipple
CPT/HCPCS: 77063; 77067

== ENCOUNTER 2023-07-21 16:54 | Emergency (ER) | payer MEDICARE, SELFPAY ==
--- NOTE | ~2023-07-21 | XR_ITS ---
EXAMINATION: XR knee RT min 4V DATE: 07/21/2023 17:18 INDICATION: Right knee pain. TECHNIQUE: 5 views of right knee were obtained. COMPARISON: None. FINDINGS: Bone alignment is normal. No fracture. There is mild osteoarthritis of medial compartment. No knee joint effusion. IMPRESSION: 1. Mild right knee osteoarthritis. Reviewed, dictated and finalized at location E.
[2023-07-21 17:02] VITALS: BP 155/78; PULSE 80; RESP 14; TEMP 37.1; O2SAT 100
--- NOTE | 2023-07-21 17:10 | ED.EXTPRO ---
HPI - Extremity Problem General Chief complaint: Extremity Problem,Nontraumatic Stated complaint: right knee pain Time Seen by Provider: 07/21/23 17:05 Source: patient Mode of arrival: ambulatory Limitations: no limitations History of Present Illness HPI Narrative: Delmer is a 77-year-old female patient presenting to the clinic today with complaints of right-sided knee pain. She reports that this pain started about 3 days ago. Denies any known injury. The what yesterday that she would take a walk as this may help alleviate the pain and it made the pain worse. She is noticing some right knee swelling when compared to the left knee. States the pain is worse when she is up and walking and it is the entire knee joint that it is hurting her. Rates her pain a 5/10. Has not taken any medications to try to treat her symptoms. Related Data Home Medications Medication Instructions Recorded Confirmed acidophilus 100 million 1 cap PO HS 10/25/19 07/21/23 cell-pectin, citrus 10 mg capsule (Acidophilus Probiotic) atorvastatin 40 mg tablet 40 mg PO DAILY 10/25/19 07/21/23 mcxyjtpj-hqmg-jhdz 8 mg-folic 400 1 tablet PO DAILY 10/25/19 07/21/23 mcg-K 50 mcg-lutein 300 mcg tablet (Multivitamin Women 50 Plus) psyllium husk 0.52 gram capsule 0.52 g PO DAILY 10/25/19 07/21/23 (Fiber-Caps (psyllium husk)) valsartan 80 1 tablet PO DAILY 10/25/19 07/21/23 mg-hydrochlorothiazide 12.5 mg tablet acetaminophen 500 mg tablet 1,000 mg PO Q6HR PRN Pain 01/24/23 07/21/23 Allergies Allergy/AdvReac Type Severity Reaction Status Date / Time codeine Allergy Severe FACIAL Verified 07/21/23 17:21 SWELLING adhesive tape Allergy Intermediate RASH Verified 07/21/23 17:21 bacitracin Allergy Intermediate RASH Verified 07/21/23 17:21 gramicidin D Allergy Intermediate RASH Verified 07/21/23 17:21 neomycin Allergy Intermediate Rash Verified 07/21/23 17:21 [From Neosporin ([id number])] polymyxin B Allergy Intermediate RASH Verified 07/21/23 17:21 ibuprofen AdvReac Mild CROHN'S Verified 07/21/23 17:21 FLARE UP naproxen [From Aleve] AdvReac Mild CROHN'S Verified 07/21/23 17:21 FLARE UP Review of Systems Review of Systems: Pertinent positives per HPI. Patient denies any fever, chills, rash, headache, visual changes, dizziness, cough, runny nose, sore throat, shortness of breath, chest pain, palpitations, nausea, vomiting, diarrhea, constipation, abdominal pain, or any urinary issues. [facility] Past Medical History Medical History Anemia Arthritis Basal cell carcinoma of skin Crohn's disease Gastroesophageal reflux disease History of adenomatous polyp of colon History of left breast cancer (~1999) Status post lumpectomy, chemotherapy, and radiation. Hyperlipidemia Hypertension Left leg DVT (~2000) Osteoarthritis of right hip Osteopenia Surgical History Surgical History History of cholecystectomy History of colonoscopy History of lumpectomy of left breast (~2000) With lymph node dissection for breast cancer. History of Mohs micrographic surgery for skin cancer History of tonsillectomy and adenoidectomy History of total right hip arthroplasty (~08/23/20) Family History Family History Mother Heart disease Father Hypertension Cancer Grandparent Diabetes mellitus Heart disease Social History Social History Social History: Surrogate decision maker: Syed Godoy, spouse. Code status: Full code. Smoking status: Never smoker Alcohol intake: former Drinks per week: 1 Alcohol use details: social Substance use: never Substance use type: does not use Living arrangements: with family Additional living arrangements comments: Lives in [place] with her
== END 2023-07-21 17:54 | disposition home or self-care (01) ==
PROVIDERS: Emergency Provider Nurse Practitioner Family; PCP Internal Medicine
DX: M17.11 Unilateral primary osteoarthritis, right knee (principal); K50.90 Crohn's disease, unspecified, without complications; K21.9 Gastro-esophageal reflux disease without esophagitis; E78.5 Hyperlipidemia, unspecified; I10 Essential (primary) hypertension; Z86.718 Personal history of other venous thrombosis and embolism; M16.11 Unilateral primary osteoarthritis, right hip; M85.80 Other specified disorders of bone density and structure, unspecified site; Z85.828 Personal history of other malignant neoplasm of skin; Z85.3 Personal history of malignant neoplasm of breast; Z92.21 Personal history of antineoplastic chemotherapy; Z92.3 Personal history of irradiation; Z90.12 Acquired absence of left breast and nipple
CPT/HCPCS: 73564; 99213; G0463

== ENCOUNTER 2023-09-15 15:15 | Outpatient (RCR) | payer MEDICARE, SELFPAY ==
--- NOTE | 2023-08-26 09:56 | OPREHPOC ---
Outpatient Therapy Plan of Care This is a Multidisciplinary Plan of Care that may contain components documented by all disciplines (PT, OT, and ST.) PT Problem 1 PT Problem #1 Knowledge Deficit PT Goal 1 Goal 1* indep with HEP PT Problem 2 PT Problem #2 Pain PT Goal 1 Goal 1* pt report pain R knee 3/10 at worst 2* self assessment LE functional scale of 30% limitation in activity 3* pt report with sleeping, awaken 1x/night due to knee pain PT Problem 3 PT Problem #3 Impaired Strength PT Goal 1 Goal increase strength of R hip and knee for stability to knee joint: 1* supine SLR x 20 reps 2* single leg standing 15 seconds with good stability
--- NOTE | 2023-08-26 09:56 | PTOPEVAL1 ---
Assessment and note entered by Tash Pena, PT Evaluation Information Assessment Status Evaluation Diagnosis R knee pain/ medial meniscal tear Onset Jul 21, 2023 Subjective Information increased pain after going for a long walk; no trauma or injury to knee; to ER 07-21-23 due to knee pain, xray report states mild OA medial knee; history of R THR in 1999- sometimes painful with bursitis; no recent check of hip; had knee cortisone injection- decreased pain; ACTIVITY: active lifestyle; she does all cooking cleaning, home tasks-- due to with Parkinson's--has to assist him with dressing, self care tasks; for distances, she pushes him while he is sitting in the seat of his wheeled walker; she can only leave him alone ~ 1-2 hours. discussed with pt caregiver support group, getting assistance from others to care for her have membership to [employer], goes for fitness exercise class, have not gone since knee pain started Reported Pain Level Pain Score Self Report Additional Pain Score Comments pain range in the past week 0-6/10; pain distal- medial patella and medial knee; achy, sharp pain in front, into medial calf to foot; increase pain: walking/standing few hours; decrease pain: ice, rest, sleep is disrupted- awaken 2-3x/ night: sleep prone- pressure on knee hurts; side sleeps also-- educated on use of pillow between knees for positioning hip/knee; Assessment PT Clinical Summary Rosaura has the diagnosis of R knee pain/medial meniscal tear; onset of pain with increased walking and sleep is disrupted due to knee pain. Her history includes R THR, with R hip and low back pain intermittent. She is active and is caregiver to her . Prior to knee pain, was going to fitness exercise class. Self assessment LE functional score of 43% limitation in activity. With the evaluation: she has good flexibility of R hip, knee and ankle ROM, with decreased strength of hip and knee, with pain increase knee flexion and extension end ranges of motion; single leg standing on R increases h
--- NOTE | 2023-09-15 15:53 | PTOPDC ---
Assessment and note entered by Tash Pena, PT Evaluation Information Assessment Status Discharge Diagnosis R knee pain/ medial meniscal tear Onset Jul 21, 2023 Subjective Information knee is better; not waking me up as much at night and able to walk more; and walk without limping; Reported Pain Level Pain Score Self Report Additional Pain Score Comments pain range in the past week 0-3/10; increase pain: stairs decrease pain: sit, rest, ice, rub knee with vicks cream awaken once every 2-3rd night, not every night walking time varies-- from all day to less than that--not sure why different Assessment PT Clinical Summary Roasura has received 7 PT sessions. Compared to the initial evaluation: pain rating at the worst has decreased from 6 to 3/10; improved sleeping tolerance; increase strength of R hip and knee, improved single leg standing; self assessment LE functional score improved from 43 to 21% limitation; education on HEP and pain management with activity/rest balance. The goals were achieved, except time for single leg standing. Discharge PT services. She is to continue with her home exercise program. And increase walking and activity as tolerated. Plan of Care PT Services Indicated No
== END 2023-09-16 08:37 | disposition home or self-care (01) ==
LOC: ANHPT 15:15
PROVIDERS: PCP Internal Medicine; Visit Provider Orthopaedic Surgery
DX: S83.241D Other tear of medial meniscus, current injury, right knee, subsequent encounter (principal)
CPT/HCPCS: 97110; 97140; 97161; 97530

== ENCOUNTER 2023-09-17 15:02 | Outpatient (CLI) | payer MEDICARE, SELFPAY ==
--- NOTE | ~2023-09-17 | US_ITS ---
Limited Abdominal Sonogram: Real-time sonographic imaging of the right upper quadrant was performed. Clinical History: Abnormal LFTs Findings: The liver appears normal with no evidence of mass lesion or bile duct dilatation. Main por asaf vein demonstrates normal direction of flow. The gallbladder is absent, compatible prior cholecyst ectomy. The common bile duct measures 3 mm. The visualized pancreas, aorta, and IVC are unremarkable . Simple right renal cyst noted. Impression: Status post cholecystectomy, otherwise unremarkable exam. Reviewed, dictated and finalized at location M. WARDEN Impression: Status post cholecystectomy, otherwise unremarkable exam.
[2023-09-17 17:53] LABS: Basophils Percent Auto 0.2 % (0.2-1.2); Eosinophils Absolute Auto 0.2 K/mm3 (0-0.3); Eosinophils Percent Auto 2.5 % (0-4.4); Hematocrit 32.8 % (37.0-47.0); Hemoglobin 10.2 g/dL (12.0-15.0); Immature Granulocyte Absolute 0.02 K/mm3 (0.00-0.031); Immature Granulocyte Percent A 0.3 % (0-0.5); Lymphocytes Absolute Auto 1.44 K/mm3 (0.9-3.2); Lymphocytes Percent Auto 22.7 % (18.3-44.2); Mean Corpuscular HGB Conc 31.1 g/dl (32-36); Mean Corpuscular Hemoglobin 30.5 pg (26-34); Mean Corpuscular Volume 98.2 fl (80-100); Mean Platelet Volume 10.1 fl (7.4-10.4); Monocytes Absolute Auto 0.5 K/mm3 (0.1-0.6); Neutrophils Absolute Auto 4.2 K/mm3 (1.3-6.7); Neutrophils Percent Auto 66.3 % (45.5-73.1); Platelet Count Result 270 k/mm3 (150-375); Red Blood Count 3.34 M/mm3 (4.2-5.4); Red Cell Distribution Width 12.2 % (11.5-14.5); White Blood Count 6.4 K/mm3 (4.5-10.0)
[2023-09-17 18:11] LABS: Alanine Aminotransferase 21 U/L (6-35); Albumin Level 4.3 g/dL (3.5-5.1); Alkaline Phosphatase 102 U/L (38-126); Anion Gap 11 mmol/L (8-16); Aspartate Amino Transferase 25 U/L (14-36); Bilirubin,Total 0.7 mg/dL (0.2-1.3); Blood Urea Nitrogen 15 mg/dL (7-17); Calcium 9.2 mg/dL (8.4-10.2); Carbon Dioxide 25 mmol/L (22-30); Chloride 102 mmol/L (98-107); Cholesterol 180 mg/dL (0-200); Estimated Glomerular Filt Rate > 60; Glucose 86 mg/dL (65-110); HDL Direct 47 mg/dL; Potassium 3.5 mmol/L (3.4-5.0); Sodium 138 mmol/L (137-145); Triglycerides 73 mg/dL (<150)
[2023-09-17 18:22] LABS: LDL Cholesterol Direct 90 mg/dL
[2023-09-17 18:42] LABS: Thyroid Stimulating Hormone 0.764 uIU/mL (0.465-4.680)
[2023-09-17 18:45] LABS: Free T4 Free Thyroxine 1.37 ng/mL (0.78-2.19)
[2023-09-20 15:38] LABS: GGT 9 U/L (3-65)
[2023-09-22 07:45] LABS: Vitamin D 1,25 (OH)2 Total 44 pg/mL (18-72); Vitamin D2 1,25 (OH)2 <8 pg/mL; Vitamin D3 1,25 (OH)2 44 pg/mL
== END 2023-09-17 15:03 | disposition home or self-care (01) ==
PROVIDERS: PCP Internal Medicine; Visit Provider Internal Medicine
DX: R94.5 Abnormal results of liver function studies (principal); E78.5 Hyperlipidemia, unspecified; E55.9 Vitamin D deficiency, unspecified
CPT/HCPCS: 36415; 76705; 80053; 80061; 82248; 82652; 82977; 84439; 84443; 85025

== ENCOUNTER 2023-12-05 12:28 | Outpatient (CLI) | payer MEDICARE, SELFPAY ==
--- NOTE | ~2023-12-05 | US_ITS ---
EXAMINATION: US thyroid DATE: 12/05/2023 13:58 INDICATION: Nontoxic multinodular goiter. TECHNIQUE: Multiple ultrasound images of the thyroid were obtained. COMPARISON: Ultrasound 12/09/2022, 06/07/2022, 04/19/2022 FINDINGS: The right thyroid lobe measures 5.9 x 1.6 x 2.2 cm. The left thyroid lobe measures 5.0 x 1.3 x 2.2 c m. In the right thyroid lobe, there is a 10 mm solid, hypoechoic, wider than tall nodule with lobula keenan margin without echogenic foci (TI-RADS TR4). In the left thyroid lobe, there is a 5 mm, solid, hy poechoic, wider than tall nodule with smooth margin without echogenic foci (TR4). In the right thyroi d lobe, there is a 3 mm nodule. In the right thyroid lobe, there is a 9 mm mixed cystic and solid, hy poechoic, wider than tall nodule with lobulated margin and punctate echogenic foci (TR5). In the righ t thyroid lobe, there is a 1.3 cm solid, hypoechoic, wider than tall nodule with smooth margin withou t echogenic foci (TR4). IMPRESSION: 1. Multinodular goiter, stable from 04/19/2022. Thyroid ultrasound is recommended in one year. Reviewed, dictated and finalized at location E. RUCTOR [facility] IMPRESSION: 1. Multinodular goiter, stable from 04/19/2022. Thyroid ultrasound is recommende d in one year.
== END 2023-12-05 12:29 | disposition home or self-care (01) ==
LOC: ANHIMG 12:32
PROVIDERS: PCP Internal Medicine; Visit Provider Otolaryngology
DX: E04.2 Nontoxic multinodular goiter (principal)
CPT/HCPCS: 76536

== ENCOUNTER 2023-12-22 08:32 | Outpatient (CLI) | payer MEDICARE, SELFPAY ==
[2023-12-22 09:00] LABS: Basophils Percent Auto 0.2 % (0.2-1.2); Eosinophils Absolute Auto 0.1 K/mm3 (0-0.3); Eosinophils Percent Auto 2.4 % (0-4.4); Hematocrit 34.4 % (37.0-47.0); Hemoglobin 11.1 g/dL (12.0-15.0); Immature Granulocyte Absolute 0.03 K/mm3 (0.00-0.031); Immature Granulocyte Percent A 0.5 % (0-0.5); Lymphocytes Absolute Auto 1.51 K/mm3 (0.9-3.2); Lymphocytes Percent Auto 26.1 % (18.3-44.2); Mean Corpuscular HGB Conc 32.3 g/dl (32-36); Mean Corpuscular Volume 96.1 fl (80-100); Mean Platelet Volume 9.2 fl (7.4-10.4); Monocytes Absolute Auto 0.6 K/mm3 (0.1-0.6); Monocytes Percent Auto 9.5 % (2.6-8.5); Neutrophils Absolute Auto 3.5 K/mm3 (1.3-6.7); Neutrophils Percent Auto 61.3 % (45.5-73.1); Platelet Count Result 276 k/mm3 (150-375); Red Blood Count 3.58 M/mm3 (4.2-5.4); Red Cell Distribution Width 12.3 % (11.5-14.5); White Blood Count 5.8 K/mm3 (4.5-10.0)
[2023-12-22 09:04] LABS: Blood Urea Nitrogen 22 mg/dL (8-26); Carbon Dioxide 28 mmol/L (22-30); Chloride 100 mmol/L (98-109); Estimated Glomerular Filt Rate 53; Glucose 90 mg/dL (70-105); Ionized Calcium (POC) 1.17 mmol/L (1.11-1.31); Potassium 3.9 mmol/L (3.5-4.9); Sodium 139 mmol/L (138-146)
[2023-12-22 10:59] LABS: Alanine Aminotransferase 20 U/L (6-35); Albumin Level 4.3 g/dL (3.5-5.1); Alkaline Phosphatase 111 U/L (38-126); Anion Gap 13 mmol/L (8-16); Aspartate Amino Transferase 26 U/L (14-36); Bilirubin,Total 0.5 mg/dL (0.2-1.3); Blood Urea Nitrogen 23 mg/dL (7-17); Calcium 8.7 mg/dL (8.4-10.2); Carbon Dioxide 23 mmol/L (22-30); Chloride 101 mmol/L (98-107); Estimated Glomerular Filt Rate 60; Glucose 92 mg/dL (65-110); Potassium 3.9 mmol/L (3.4-5.0); Sodium 137 mmol/L (137-145)
== END 2023-12-22 08:33 | disposition home or self-care (01) ==
LOC: ANHLAB 08:35
PROVIDERS: PCP Internal Medicine; Visit Provider Internal Medicine Hematology & Oncology
DX: D64.9 Anemia, unspecified (principal)
CPT/HCPCS: 36415; 80047; 80053; 85025

== ENCOUNTER 2024-02-08 15:08 | Emergency (ER) | payer MEDICARE, SELFPAY ==
--- NOTE | ~2024-02-08 | CT_ITS ---
EXAMINATION: CT pelvis wo con DATE: 02/08/2024 17:29 INDICATION: Pelvic pain, fall TECHNIQUE: Computed tomography (CT) of the pelvis was performed without intravenous contrast. Automat ed exposure control and iterative reconstruction technique were employed. The dose-length product was 289.29 mGy-cm. COMPARISON: X-ray hip 08/23/2020, report only FINDINGS: Decreased osseous mineralization. Degenerative disc and facet change in the lumbar spine. S I joints are intact and symmetric. Moderate left hip osteoarthritic change. Uncomplicated right hip a rthroplasty hardware. No fracture or dislocation. No suspicious lytic or blastic lesion. Diverticulos is. Atherosclerotic arterial calcifications. Surgical clips over the pelvis. Normal urinary bladder a nd uterus. 1.9 cm simple left ovarian cyst. Normal bilateral ovaries. IMPRESSION: No acute osseous finding in the pelvis. No CT evidence of hardware related complication. Reviewed, dictated and finalized at location K. IMPRESSION: No acute osseous finding in the pelvis. No CT evidence of hardware related comp lication.
--- NOTE | ~2024-02-08 | CT_ITS ---
EXAMINATION: CT cervical spine wo con DATE: 02/08/2024 16:22 INDICATION: fall TECHNIQUE: Computed tomography (CT) of the cervical spine was performed without intravenous contrast. Automated exposure control and iterative reconstruction technique were employed. The dose-length pro duct was 182.56 mGy-cm. COMPARISON: None. FINDINGS: Vertebral Body Alignment: Intact. Mildly reversed lordosis centered at C3-4. Craniocervical and atlantoaxial alignment: Moderate degenerative change. Alignment intact. Osseous structures/fracture: No evidence of a lytic or blastic process in the visualized spine. No e vidence of acute fracture. Cervical soft tissues: The paraspinal soft tissues planes are maintained. Right thyroid lobe hypodens ities measuring up to 1.2 cm, requiring no additional evaluation at this time. Degenerative changes: Degenerative changes, without severe neural foraminal or central canal narrowin g. IMPRESSION: No acute fracture or traumatic malalignment in the cervical spine. Reviewed, dictated and finalized at location K.
--- NOTE | ~2024-02-08 | CT_ITS ---
EXAMINATION: CT brain wo con DATE: 02/08/2024 16:22 INDICATION: fall . TECHNIQUE: Computed tomography (CT) of the head was performed without intravenous contrast. The mA wa s adjusted according to patient size. Iterative reconstruction technique was employed. The dose-lengt h product was 529.67 mGy-cm. COMPARISON: 08/26/2020, report only. FINDINGS: No acute intracranial hemorrhage or extra-axial fluid collection. No hydrocephalus, mass, or herniation. No acute ischemic infarct. Unremarkable dural venous sinus attenuation. No acute osseous abnormality. Right parietal scalp hematoma/swelling. The aerated spaces are clear. Mild atrophy and chronic white matter change. Atherosclerotic intracranial calcification. 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 IMPRESSION: No acute intracranial process. Reviewed, dictated and finalized at location K.
[2024-02-08 15:11] VITALS: BP 181/74; PULSE 103; RESP 17; TEMP 36.4; O2SAT 100
--- NOTE | 2024-02-08 16:15 | PC.NURSE ---
Pt to CT via stretcher at this time.
[2024-02-08 16:51] VITALS: BP 154/93; PULSE 96; RESP 17; O2SAT 97
--- NOTE | 2024-02-08 18:38 | ED.FALL ---
HPI - Fall General Chief Complaint: Fall Stated Complaint: fall Time Seen by Provider: 02/08/24 16:21 History of Present Illness HPI Narrative: 78-year-old female presenting to the emergency department for evaluation after having a ground level fall. Patient states she was walking up her stairs when she had onset of dizziness. Patient fell backwards and struck her head. Patient suspects she did have loss consciousness. Patient was able to climb stairs and ultimately was she is able to walk to bed and get into bed. Related Data Home Medications Medication Instructions Recorded Confirmed acidophilus 100 million 1 cap PO HS 10/25/19 07/21/23 cell-pectin, citrus 10 mg capsule (Acidophilus Probiotic) atorvastatin 40 mg tablet 40 mg PO DAILY 10/25/19 07/21/23 lijbrrjk-mdnq-djpp 8 mg-folic 400 1 tablet PO DAILY 10/25/19 07/21/23 mcg-K 50 mcg-lutein 300 mcg tablet (Multivitamin Women 50 Plus) psyllium husk 0.52 gram capsule 0.52 g PO DAILY 10/25/19 07/21/23 (Fiber-Caps (psyllium husk)) valsartan 80 1 tablet PO DAILY 10/25/19 07/21/23 mg-hydrochlorothiazide 12.5 mg tablet acetaminophen 500 mg tablet 1,000 mg PO Q6HR PRN Pain 01/24/23 07/21/23 Allergies Allergy/AdvReac Type Severity Reaction Status Date / Time codeine Allergy Severe FACIAL Verified 07/21/23 17:21 SWELLING adhesive tape Allergy Intermediate RASH Verified 07/21/23 17:21 bacitracin Allergy Intermediate RASH Verified 07/21/23 17:21 gramicidin D Allergy Intermediate RASH Verified 07/21/23 17:21 neomycin Allergy Intermediate Rash Verified 07/21/23 17:21 [From Neosporin ([id number])] polymyxin B Allergy Intermediate RASH Verified 07/21/23 17:21 ibuprofen AdvReac Mild CROHN'S Verified 07/21/23 17:21 FLARE UP naproxen [From Aleve] AdvReac Mild CROHN'S Verified 07/21/23 17:21 FLARE UP Review of Systems Review of Systems: All systems reviewed & are unremarkable except as noted in HPI and below PMFSH Past Medical History Medical History Anemia Arthritis Basal cell carcinoma of skin Crohn's disease Gastroesophageal reflux disease History of adenomatous polyp of colon History of left breast cancer (~1999) Status post lumpectomy, chemotherapy, and radiation. Hyperlipidemia Hypertension Left leg DVT (~2000) Osteoarthritis of right hip Osteopenia Surgical History Surgical History History of cholecystectomy History of colonoscopy History of lumpectomy of left breast (~2000) With lymph node dissection for breast cancer. History of Mohs micrographic surgery for skin cancer History of tonsillectomy and adenoidectomy History of total right hip arthroplasty (~08/23/20) Family History Family History Mother Heart disease Father Hypertension Cancer Grandparent Diabetes mellitus Heart disease Social History Social History Social History: Surrogate decision maker: Syed Walt, spouse. Code status: Full code. Smoking status: Never smoker Alcohol intake: former Drinks per week: 1 Alcohol use details: social Substance use: never Substance use type: does not use Living arrangements: with family Additional living arrangements comments: Lives in [place] with her . 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 Gender identity (if verbalized by the patient): Female Spiritual care concerns: No Exam Narrative: APPEARANCE: Well appearing, no pain, no distress, well-nourished. HEAD: normocephalic, atraumatic. EYES: PERRLA/EOMI, conjunctivae clear. NOSE: Normal no drainage EARS:TMS clear with good light reflex. THROAT: Pharynx clear, no exudate. NECK: Supple. No adenopathy, no masses. RESPIRATORY: Airway
[2024-02-08 19:00] VITALS: BP 161/90; PULSE 94; RESP 14; O2SAT 97
== END 2024-02-08 19:02 | disposition home or self-care (01) ==
PROVIDERS: Emergency Provider Emergency Medicine; PCP Internal Medicine
DX: S09.90XA Unspecified injury of head, initial encounter (principal); R10.2 Pelvic and perineal pain; E78.5 Hyperlipidemia, unspecified; I10 Essential (primary) hypertension; K21.9 Gastro-esophageal reflux disease without esophagitis; K50.90 Crohn's disease, unspecified, without complications; M19.90 Unspecified osteoarthritis, unspecified site; M16.11 Unilateral primary osteoarthritis, right hip; M85.80 Other specified disorders of bone density and structure, unspecified site; Z96.641 Presence of right artificial hip joint; Z85.3 Personal history of malignant neoplasm of breast; Z85.828 Personal history of other malignant neoplasm of skin; Z86.718 Personal history of other venous thrombosis and embolism; Z86.2 Personal history of diseases of the blood and blood-forming organs and certain disorders involving the immune mechanism; Z86.010 Personal history of colon polyps; Z92.3 Personal history of irradiation; Z92.21 Personal history of antineoplastic chemotherapy; Z90.49 Acquired absence of other specified parts of digestive tract; W10.9XXA Fall (on) (from) unspecified stairs and steps, initial encounter
CPT/HCPCS: 70450; 72125; 72192; 99284

== ENCOUNTER 2024-03-17 13:39 | Outpatient (CLI) | payer MEDICARE, SELFPAY ==
[2024-03-17 14:32] LABS: Basophils Percent Auto 0.6 % (0.2-1.2); Eosinophils Absolute Auto 0.1 K/mm3 (0-0.3); Eosinophils Percent Auto 2.7 % (0-4.4); Hematocrit 32.7 % (37.0-47.0); Hemoglobin 10.3 g/dL (12.0-15.0); Immature Granulocyte Absolute 0.03 K/mm3 (0.00-0.031); Immature Granulocyte Percent A 0.6 % (0-0.5); Lymphocytes Absolute Auto 1.22 K/mm3 (0.9-3.2); Lymphocytes Percent Auto 23.4 % (18.3-44.2); Mean Corpuscular HGB Conc 31.5 g/dl (32-36); Mean Corpuscular Hemoglobin 30.7 pg (26-34); Mean Corpuscular Volume 97.3 fl (80-100); Mean Platelet Volume 9.7 fl (7.4-10.4); Monocytes Absolute Auto 0.4 K/mm3 (0.1-0.6); Monocytes Percent Auto 7.7 % (2.6-8.5); Neutrophils Absolute Auto 3.4 K/mm3 (1.3-6.7); Platelet Count Result 295 k/mm3 (150-375); Red Blood Count 3.36 M/mm3 (4.2-5.4); Red Cell Distribution Width 12.4 % (11.5-14.5); White Blood Count 5.2 K/mm3 (4.5-10.0)
[2024-03-17 14:49] LABS: Alanine Aminotransferase 20 U/L (6-35); Albumin Level 4.4 g/dL (3.5-5.1); Alkaline Phosphatase 148 U/L (38-126); Anion Gap 10 mmol/L (4-12); Aspartate Amino Transferase 26 U/L (14-36); Bilirubin,Total 0.7 mg/dL (0.2-1.3); Blood Urea Nitrogen 16 mg/dL (7-17); Calcium 9.2 mg/dL (8.4-10.2); Carbon Dioxide 24 mmol/L (22-30); Chloride 104 mmol/L (98-107); Cholesterol 165 mg/dL (0-200); Estimated Glomerular Filt Rate 60; Glucose 85 mg/dL (65-110); HDL Direct 50 mg/dL; Potassium 3.6 mmol/L (3.4-5.0); Sodium 138 mmol/L (137-145); Triglycerides 70 mg/dL (<150)
[2024-03-17 14:59] LABS: LDL Cholesterol Direct 81 mg/dL
[2024-03-17 15:17] LABS: Thyroid Stimulating Hormone 0.205 uIU/mL (0.465-4.680)
[2024-03-17 18:09] LABS: Free T4 Free Thyroxine 1.41 ng/mL (0.78-2.19); Vitamin D 25 Hydroxy 70.6 ng/mL
[2024-03-17 18:25] LABS: Hepatitis B Surface Antigen Negative (Negative)
[2024-03-17 18:31] LABS: HAV RESULT Negative (Negative); Hepatitis B Core IgM Result Negative (Negative)
[2024-03-17 18:43] LABS: Hepatitis C Virus Antibody Negative (Negative)
[2024-03-31 13:07] LABS: GGT 9
== END 2024-03-17 13:40 | disposition home or self-care (01) ==
PROVIDERS: PCP Internal Medicine; Visit Provider Internal Medicine
DX: E78.5 Hyperlipidemia, unspecified (principal); E55.9 Vitamin D deficiency, unspecified; R94.5 Abnormal results of liver function studies; E03.9 Hypothyroidism, unspecified
CPT/HCPCS: 36415; 80053; 80061; 80074; 82306; 82977; 84439; 84443; 85025

== ENCOUNTER 2024-04-14 08:14 | Day surgery (SDC) | payer MEDICARE, SELFPAY ==
[2024-03-24 12:01] VITALS: BMI 27.4
[2024-04-07 13:04] VITALS: BMI 27.5
[2024-04-14 09:03] VITALS: BP 162/85; PULSE 72; RESP 18; TEMP 36.1; O2SAT 100; BMI 27.2
--- NOTE | 2024-04-14 09:09 | PM.HPGS ---
History of Present Illness History of Present Illness Consent: Risks, benefits, and alternatives have been discussed and questions answered. Patient agrees to proceed with procedure. Chief complaint: HX colon polyps Narrative: Rosaura Godoy is a 78 year old female presents for colonoscopy. Patient has a history of colon polyps in the past. These were confirmed to be adenomas. She has a questionable history of Crohn's disease diagnosed many years ago. She has never taken medications for this. Previously followed by Dr. Estrada. She used to get colonoscopies every 2 years. Most recent colonoscopy apparently was fairly unremarkable. Is a family history in a distant relative an uncle who had colon cancer. Patient presents today for surveillance examination. Review of Systems Review of Systems: Review Of Systems noncontributory. [facility] Past Medical History Medical History Anemia Arthritis Basal cell carcinoma of skin Crohn's disease Gastroesophageal reflux disease History of adenomatous polyp of colon History of left breast cancer (~1999) Status post lumpectomy, chemotherapy, and radiation. Hyperlipidemia Hypertension Left leg DVT (~2000) Osteoarthritis of right hip Osteopenia Surgical History Surgical History History of cholecystectomy History of colonoscopy History of lumpectomy of left breast (~2000) With lymph node dissection for breast cancer. History of Mohs micrographic surgery for skin cancer History of tonsillectomy and adenoidectomy History of total right hip arthroplasty (~08/23/20) Family History Family History Mother Heart disease Father Hypertension Cancer Grandparent Diabetes mellitus Heart disease Social History Social History Social History: Surrogate decision maker: ySed Godoy, spouse. Code status: Full code. Smoking status: Never smoker Alcohol intake: former Drinks per week: 1 Alcohol use details: rarely Substance use: never Substance use type: does not use Living arrangements: with family Additional living arrangements comments: Lives in [place] with her . 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 Gender identity (if verbalized by the patient): Female Spiritual care concerns: No Meds Home Medications and Allergies Home Medications Medication Instructions Recorded Confirmed Type acidophilus 100 million 1 cap PO HS 10/25/19 04/14/24 History cell-pectin, citrus 10 mg capsule (Acidophilus Probiotic) atorvastatin 40 mg tablet 40 mg PO DAILY 10/25/19 04/14/24 History lmnlbohc-kraq-fkiz 8 mg-folic 400 1 tablet PO DAILY 10/25/19 04/14/24 History mcg-K 50 mcg-lutein 300 mcg tablet (Multivitamin Women 50 Plus) psyllium husk 0.52 gram capsule 0.52 g PO DAILY 10/25/19 04/14/24 History (Fiber-Caps (psyllium husk)) valsartan 80 1 tablet PO DAILY 10/25/19 04/14/24 History mg-hydrochlorothiazide 12.5 mg tablet Allergies Allergy/AdvReac Type Severity Reaction Status Date / Time codeine Allergy Severe FACIAL Verified 04/14/24 09:01 SWELLING adhesive tape Allergy Intermediate RASH Verified 04/14/24 09:01 bacitracin Allergy Intermediate RASH Verified 04/14/24 09:01 gramicidin D Allergy Intermediate RASH Verified 04/14/24 09:01 neomycin Allergy Intermediate Rash Verified 04/14/24 09:01 [From Neosporin ([id number])] polymyxin B Allergy Intermediate RASH Verified 04/14/24 09:01 ibuprofen AdvReac Mild CROHN'S Verified 04/14/24 09:01 FLARE UP naproxen [From Aleve] AdvReac Mild CROHN'S Verified 04/14/24 09:01 FLARE UP Vital Signs Vital Signs - 24 hr 04/14/24 09:03 Temperature 97 F L Pulse Rate 72 Respira
[2024-04-14] MEDS: LACTATED RINGERS 1,000 ML 150 ML IV CONT (09:10)
--- NOTE | 2024-04-14 09:34 | WPDANESEPP ---
Anes - Eval Pre Procedure Procedure: Operation Date: 04/14/24 10:00 Proposed Procedures p Diagnostic Colonoscopy - Nitin Pierce MD Date/Time: 04/14/24 09:34 Pre Op Diagnosis: HX colon polyps Patient Data Age: 78 Gender: F Height: 1.57 m Weight: 67.5 kg Last Vital Signs Temp 97 F L 04/14/24 09:03 Pulse 72 04/14/24 09:03 Resp 18 04/14/24 09:03 BP 162/85 H 04/14/24 09:03 Pulse Ox 100 04/14/24 09:03 O2 Del Method Room Air 04/14/24 09:03 Allergies Allergy/AdvReac Type Severity Reaction Status Date / Time codeine Allergy Severe FACIAL Verified 04/14/24 09:01 SWELLING adhesive tape Allergy Intermediate RASH Verified 04/14/24 09:01 bacitracin Allergy Intermediate RASH Verified 04/14/24 09:01 gramicidin D Allergy Intermediate RASH Verified 04/14/24 09:01 neomycin Allergy Intermediate Rash Verified 04/14/24 09:01 [From Neosporin ([id number])] polymyxin B Allergy Intermediate RASH Verified 04/14/24 09:01 ibuprofen AdvReac Mild CROHN'S Verified 04/14/24 09:01 FLARE UP naproxen [From Aleve] AdvReac Mild CROHN'S Verified 04/14/24 09:01 FLARE UP Home Medications Medication Instructions Recorded Confirmed Type acidophilus 100 million 1 cap PO HS 10/25/19 04/14/24 History cell-pectin, citrus 10 mg capsule (Acidophilus Probiotic) atorvastatin 40 mg tablet 40 mg PO DAILY 10/25/19 04/14/24 History wlxlyrtv-crkb-zofl 8 mg-folic 400 1 tablet PO DAILY 10/25/19 04/14/24 History mcg-K 50 mcg-lutein 300 mcg tablet (Multivitamin Women 50 Plus) psyllium husk 0.52 gram capsule 0.52 g PO DAILY 10/25/19 04/14/24 History (Fiber-Caps (psyllium husk)) valsartan 80 1 tablet PO DAILY 10/25/19 04/14/24 History mg-hydrochlorothiazide 12.5 mg tablet Patient hx anesthesia problems: none Family hx anesthesia problems: none Results Review: All pre-operative results and documents have been reviewed as part of the pre-operative evaluation. PMFSH Past Medical History Medical History Anemia Arthritis Basal cell carcinoma of skin Crohn's disease Gastroesophageal reflux disease History of adenomatous polyp of colon History of left breast cancer (~1999) Status post lumpectomy, chemotherapy, and radiation. Hyperlipidemia Hypertension Left leg DVT (~2000) Osteoarthritis of right hip Osteopenia Surgical History Surgical History History of cholecystectomy History of colonoscopy History of lumpectomy of left breast (~2000) With lymph node dissection for breast cancer. History of Mohs micrographic surgery for skin cancer History of tonsillectomy and adenoidectomy History of total right hip arthroplasty (~08/23/20) Family History Family History Mother Heart disease Father Hypertension Cancer Grandparent Diabetes mellitus Heart disease Social History Social History Social History: Surrogate decision maker: Syed Godoy, spouse. Code status: Full code. Smoking status: Never smoker Alcohol intake: former Drinks per week: 1 Alcohol use details: rarely Substance use: never Substance use type: does not use Living arrangements: with family Additional living arrangements comments: Lives in [place] with her . 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 Gender identity (if verbalized by the patient): Female Spiritual care concerns: No Exam Day of Procedure 04/14/24 09:34 Patient weight: overweight
[2024-04-14 10:35] VITALS: BP 102/56; PULSE 70; RESP 15; O2SAT 99
[2024-04-14 10:45] VITALS: BP 114/53; PULSE 70; RESP 16; O2SAT 100
[2024-04-14 10:55] VITALS: BP 117/58; PULSE 71; RESP 17; O2SAT 100
--- NOTE | 2024-04-14 12:10 | WPDANESPN ---
Anes - Prog Note Post-Op Date/Time: 04/14/24 12:10 Cardiovascular status: normal Respiratory status: normal Airway patency: baseline Mental status: baseline Post-Op hydration status: normal Vital Signs: Last Vital Signs Temp 36.1 C L 04/14/24 09:03 Pulse 71 04/14/24 10:55 Resp 17 04/14/24 10:55 BP 117/58 L 04/14/24 10:55 Pulse Ox 100 04/14/24 10:55 O2 Del Method Room Air 04/14/24 10:55 Pain Score (VAS): 0/10 I/O: Intake & Output 04/13/24 04/14/24 04/14/24 23:59 07:59 15:59 Intake Total 400 Balance 400 Patient Feedback: Patient satisfied with anesthetic care.
== END 2024-04-14 11:10 | disposition home or self-care (01) ==
PROVIDERS: PCP Internal Medicine; Visit Provider Internal Medicine Gastroenterology
PROC: 0DJD8ZZ Inspection of Lower Intestinal Tract, Via Natural or Artificial Opening Endoscopic (ICD-10-PCS; CPT 45378; principal; 2024-04-14 10:00)
DX: Z86.010 Personal history of colon polyps (principal); K57.30 Diverticulosis of large intestine without perforation or abscess without bleeding; K64.8 Other hemorrhoids
CPT/HCPCS: 45378

== ENCOUNTER 2024-07-20 08:54 | Outpatient (CLI) | payer MEDICARE, SELFPAY ==
--- NOTE | ~2024-07-20 | MM_ITS ---
EXAMINATION: MM screening doretha BI w constantino HISTORY: Screening mammogram, family history of breast cancer in her sister. TECHNIQUE: Craniocaudal and mediolateral oblique 3-D tomosynthesis images were obtained and synthetic 2-D images were generated. CAD analysis was submitted and interpreted. COMPARISON: 07/15/2023, 04/19/2022, 04/12/2021 BREAST PARENCHYMAL COMPOSITION:Not Dense. There are scattered areas of fibroglandular density. FINDINGS: Stable probable post lobectomy change at the upper, outer left breast. No suspicious mass, calcification, or architectural distortion are identified in either breast to suggest malignancy. The re has been no suspicious interval change. IMPRESSION: No mammographic evidence of malignancy. Recommend routine screening mammography in one year. BI-RADS Category 2: Benign finding(s). Reviewed, dictated and finalized at [facility].
== END 2024-07-20 08:55 | disposition home or self-care (01) ==
LOC: ANHIMG 08:55
PROVIDERS: PCP Internal Medicine; Visit Provider Internal Medicine Hematology & Oncology
DX: Z12.31 Encounter for screening mammogram for malignant neoplasm of breast (principal)
CPT/HCPCS: 77063; 77067

== ENCOUNTER 2024-11-15 10:07 | Outpatient (CLI) | payer MEDICARE, SELFPAY ==
--- NOTE | ~2024-11-15 | US_ITS ---
EXAMINATION: US thyroid DATE: 11/15/2024 10:23 INDICATION: Abnormal thyroid function tests. TECHNIQUE: Multiple ultrasound images of the thyroid were obtained. COMPARISON: Ultrasound 12/05/2023 FINDINGS: The right thyroid lobe measures 5.8 x 1.6 x 2.0 cm. The left thyroid lobe measures 4.6 x 1.4 x 1.9 c m. In the right thyroid lobe, there is a 14 mm solid, hypoechoic, wider than tall nodule with smooth margin without echogenic foci (TI-RADS TR4), stable from 12/05/23. In the right thyroid lobe, there is an 11 mm solid, hypoechoic, wider than tall nodule with ill-defined margin, macrocalcification, and punctate echogenic foci (TR5), stable from 04/19/22 status post nondiagnostic biopsy on 06/07/22. In the left thyroid lobe, there is a 5 mm solid, hypoechoic, wider than tall nodule with smooth margin with out echogenic foci (TR4). IMPRESSION: 1. Multinodular goiter. Consider repeat ultrasound-guided fine-needle aspiration of the 11 mm right t hyroid nodule. Reviewed, dictated and finalized at location [facility] IMPRESSION: 1. Multinodular goiter. Consider repeat ultrasound-guided fine-needle aspiratio n of the 11 mm right thyroid nodule.
== END 2024-11-15 10:08 | disposition home or self-care (01) ==
LOC: MICIMG 10:09
PROVIDERS: PCP Otolaryngology; Visit Provider Internal Medicine
DX: R94.8 Abnormal results of function studies of other organs and systems (principal); E04.2 Nontoxic multinodular goiter
CPT/HCPCS: 76536

== ENCOUNTER 2024-12-20 10:36 | Outpatient (CLI) | payer MEDICARE, SELFPAY ==
[2024-12-20 11:08] LABS: Basophils Percent Auto 0.3 % (0.2-1.2); Eosinophils Absolute Auto 0.1 K/mm3 (0-0.3); Eosinophils Percent Auto 1.9 % (0-4.4); Hematocrit 33.4 % (37.0-47.0); Hemoglobin 10.6 g/dL (12.0-15.0); Immature Granulocyte Absolute 0.02 K/mm3 (0.00-0.031); Immature Granulocyte Percent A 0.3 % (0-0.5); Lymphocytes Absolute Auto 1.25 K/mm3 (0.9-3.2); Mean Corpuscular HGB Conc 31.7 g/dl (32-36); Mean Corpuscular Hemoglobin 30.7 pg (26-34); Mean Corpuscular Volume 96.8 fl (80-100); Mean Platelet Volume 9.1 fl (7.4-10.4); Monocytes Absolute Auto 0.4 K/mm3 (0.1-0.6); Monocytes Percent Auto 6.6 % (2.6-8.5); Neutrophils Absolute Auto 4.2 K/mm3 (1.3-6.7); Neutrophils Percent Auto 69.9 % (45.5-73.1); Platelet Count Result 291 k/mm3 (150-375); Red Blood Count 3.45 M/mm3 (4.2-5.4); Red Cell Distribution Width 12.6 % (11.5-14.5); White Blood Count 5.9 K/mm3 (4.5-10.0)
[2024-12-20 13:30] LABS: Cholesterol 188 mg/dL (0-200); HDL Direct 54 mg/dL; Iron 130 ug/dL (37-170); Triglycerides 76 mg/dL (<150)
[2024-12-20 13:33] LABS: Alanine Aminotransferase 25 U/L (6-35); Albumin Level 4.2 g/dL (3.5-5.1); Alkaline Phosphatase 116 U/L (38-126); Anion Gap 12 mmol/L (4-12); Aspartate Amino Transferase 27 U/L (14-36); Bilirubin,Total 0.8 mg/dL (0.2-1.3); Blood Urea Nitrogen 23 mg/dL (7-17); Calcium 9.8 mg/dL (8.4-10.2); Carbon Dioxide 26 mmol/L (22-30); Chloride 99 mmol/L (98-107); Estimated Glomerular Filt Rate 54; Glucose 84 mg/dL (65-110); Sodium 137 mmol/L (137-145)
[2024-12-20 13:40] LABS: LDL Cholesterol Direct 77 mg/dL
--- OUTSIDE RECORDS SUMMARY | 2024-12-20 13:44 | XMS_ITS | Continuity of Care Document ---
Author Organization [facility] Address [address] [place] [address] [address] [place] [address] Phone Care Team Providers Care Day Light Relief Operator Name Role Phone Ponce OD, Nitin Unavailable Unavailable Advance Directives Directive Yes / No Effective Date File Name No Information Encounters Encounter Description Practice Location Reason(s) For Visit Diagnoses Date Provider Providers Copied on Encounter [facility], [address], [place], [place], [id number], [place] tel:[phone] [facility] No Information Sep-2 9-200 5 Ponce OD Nitin. [address] , [address], [place], [address], [place]. tel:[phone] Family History Family Member Type Diagnosis Age At Onset No Information Payers Payer name Insurance type Covered constitution party ID Authoriza tion(s) No Information Social History Type Description Quantity Date Captured Comments Sex Female Smoking Status No Information Chief Complaint And Reason For Visit No Information Reason For Referral Reason For Referral No Information History Of Present Illness Encounter Date Complaint History Of Prese nt Illness No Information Functional Status Date Functional Assessmen t No Information Instructions Date Instruction Additional Infor mation No Information Assessments Type Assessment Date No Information Patient Care Teams Name Effective Dates (start - stop) Status Members No Information
--- OUTSIDE RECORDS SUMMARY | 2024-12-20 13:44 | XMS_ITS | Encounter Summary ---
Author Organization [facility] Address [address] [place] [address] Care Team Providers Care Esthetic Dermatologist Name Role Phone Sharath Stock MD Primary Care Provider [phone] Encounter Details Date Type Department Care Team (Late st Contact Info) Description 05/26/2019 Lab Requisition [facility] D[facility] [address] [facility] [place] [place] [id number] Jayson Pena MD [address] [place] [address] Social History Tobacco Use Types Packs/Day Years Used Date Smoking Tobacco: Never Smokeless Tobacco: Never Alcohol Use Standard Drinks/Week Comments No 0 (1 standard drink = 0.6 oz pur e alcohol) Sex and Gender Information Value Date Recorded Sex Assigned at Not on file Gender Identity Not on file Sexual Orientation Not on file documented as of this encounter Plan of Treatment Not on file documented as of this encounter Procedures Procedure Name Priority Date/Time Associated Diagnosis Comments DERMATOPATHOLOGY Routine 05/25/2019 12:0 0 AM CDT documented in this encounter Results * DERMATOPATHOLOGY (05/25/2019 12:00 AM CDT) Case Report Dermatopathology Report Case: [id number] Authorizing Provider: Jayson Pena MD Collected: 05/25/2019 12:00 AM Pathologist: Bernice Hoang MD Received: 05/26/2019 12:41 PM Specimens: A) - Skin, right post trapezius neck B) - Skin, left upper back paraspinal C) - Skin, left post shoulder 07/25/201 9 4:03 PM [facility] Final Diagnosis Specimen A. SKIN, right post trapezius neck: LICHEN PLANUS-LIKE KERATOSIS (BENIGN LICHENOID KERATOSIS) (L82.1) Specimen B. SKIN, left upper back paraspinal: LICHEN PLANUS-LIKE KERATOSIS (BENIGN LICHENOID KERATOSIS) (L82.1) (see microscopic description) Specimen C. SKIN, left post shoulder: LICHEN PLANUS-LIKE KERATOSIS (BENIGN LICHENOID KERATOSIS) (L82.1) 4:03 PM [facility] Clinical History A-C: R/O BCC. 4:03 PM [facility] Gross Description Specimen A: Received is one formalin filled container labeled with the patient's name and designated right post trapezius neck. The specimen consists of a shave biopsy measuring [id number]. Jar 0. Specimen B: Received is one formalin filled container labeled with the patient's name and designated left upper back paraspinal. The specimen consists of a shave biopsy measuring [id number]. Jar 0. Specimen C: Received is one formalin filled container labeled with the patient's name and designated left post shoulder. The specimen consists of a shave biopsy measuring [id number]. Jar 0. 4:03 PM [facility] Microscopic Description Specimen A. SKIN, right post trapezius neck: The epidermis is mildly acanthotic. There is a lichenoid infiltrate with vacuolar changes of basilar keratinocytes and scattered necrotic keratinocytes. Specimen B. SKIN, left upper back paraspinal: The epidermis is mildly acanthotic. There is a lichenoid infiltrate with vacuolar changes of basilar keratinocytes and scattered necrotic keratinocytes. Additional deeper sections were obtained and reviewed. Specimen C. SKIN, left post shoulder: The epidermis is mildly acanthotic. There is a lichenoid infiltrate with vacuolar changes of basilar keratinocytes and scattered necrotic keratinocytes. 4:03 PM [facility] Disclaimer An external and internal positive and negative controls are appropriate for the histochemical, immunohistochemical and immunofluorescence stain(s) in this case (if any), except where stated explicitly. The performance characteristics of the stain(s) cited in this report were developed and its performance characteristic determined by the Dermatopathology Laboratory at [facility], directed by Dr. Michael Estevez. These tests need not be, and therefore are not, approved by the [place] Food and Drug Administration. The tests are used for clinical purposes. Billing Codes Specimen Charges Stain Charges 49416 74679 [id number] 1 1 1 9 4:03 PM CDT DERMATOPATHOLOGY LABORATORY Embedded Images 9 4:03 PM CDT DERMATOPATHOLOGY LABORATORY Pathology/Cytology TISSUE SPECIMEN FROM SKIN / Unknown 05/25/2019 05/26/2019 12:41 PM CDT Miscellaneous samples (specimen) TISSUE SPECIMEN FROM SKIN / Unknown 05/25/2019 05/26/2019 12:41 PM CDT Miscellaneous samples (specimen) TISSUE SPECIMEN FROM SKIN / Unknown 05/25/2019 05/26/2019 12:41 PM CDT Jayson Pena MD LAB - PATHOLOGY/CYTO LOGY ORDERABLES DERMATOPATHOLOGY LABORATORY [facility] - Department of Dermatology [address] [place] [address], 5th Floor Lab [address] [phone] documented in this encounter Visit Diagnoses Not on filedocumented in this encounter Care Teams Esthetic Dermatologist Relationship Specialty Start Date End Date Sharath Stock MD PCP - General 04/05/09 documented as of this encounter
--- OUTSIDE RECORDS SUMMARY | 2024-12-20 13:44 | XMS_ITS | Referral Summary ---
Author Organization [facility] Address [address] [place] [address] Care Team Providers Care High Risk Ob Name Role Phone Taryn Ball MD Primary Care Provide r Encounters Date Type Department Care Team Description 11/22/2024 9:15 AM CHLOROBUTADIENE SCRUBBER OPERATOR Ancillary Procedure [facility] Cardiology [address] [place] [address] [place] [phone] Status post placement of implantable loop recorder (Primary Dx); Palpitations; RBBB 10/11/2024 7:30 AM CHLOROBUTADIENE SCRUBBER OPERATOR Ancillary Procedure [facility] Cardiology [address] [place] [address] [place] [phone] Recurrent syncope (Primary Dx); Palpitations; RBBB; Status post placement of implantable loop recorder 10/04/2024 2:00 PM CHLOROBUTADIENE SCRUBBER OPERATOR Office Visit [facility] Medical [facility] Cardiology [address] [facility] [address] [place] [address] Alea Parada NP History of syncope; Status post placement of implantable loop recorder; Essential hypertension; Hyperlipidemia LDL goal <100 from Last 3 Months Allergies Active Allergy Reactions Criticality Noted Date Comments Codeine Swelling,Angioedema High 05/21/2012 Swelling around eyes, Swelling around eyes, Swelling around eyes face Swelling around eyes Swelling around eyes, Swelling around eyes, Swelling around eyes Other reaction(s): Facial Swelling Eydqnddm-Iyyfzngkne-S olymyxin Rash Medium 05/21/2012 Medications valsartan-hydro CHLOROthiazide (DIOVAN-HCT) 80-12.5 mg per tablet 06/13/2020 Active Lacto.acidophil us-Bif.animalis 32 billion cell capsule Indications: once a day Active atorvastatin (LIPITOR) 40 mg tablet 08/30/2020 Active FIBER, DEXTRIN, ORAL Take by mouth Take 5 capsules daily Active cholecalciferol (VITAMIN D-3) 2000 unit tablet Active multivitamin capsule Take 1 capsule by mouth daily Active Active Problems Problem Noted Date Diagnosed Date Status post placement of implantable loop record er 01/28/2023 Overview (01/28/2023): [employer]orial Prescience LNQ22 Loop Recorder. Dx; Syncope, Palpitations. DOI 01/27/2023- Fleissner. Ralph remote monitoring. Mitral valve disorder 01/09/2023 Recurrent syncope 09/19/2020 Palpitations 07/31/2020 Hyperlipidemia LDL goal <100 07/31/2020 Essential hypertension 07/31/2020 Pre-op examination 07/31/2020 RBBB 07/31/2020 Social History Tobacco Use Types Packs/Day Years Used Date Smoking Tobacco: Never Smokeless Tobacco: Never Tobacco Cessation:Counseling Given: Not Answered Comments Unknown Sex and Gender Information Value Date Recorded Sex Assigned at Not on file Legal Sex Female 4:11 PM CHLOROBUTADIENE SCRUBBER OPERATOR Gender Identity Not on file Sexual Orientation Not on file Last Filed Vital Signs Vital Sign Reading Time Taken Comments Blood Pressure 144/62 10/04/2024 2:00 PM CHLOROBUTADIENE SCRUBBER OPERATOR Pulse 83 10/04/2024 1:42 PM CHLOROBUTADIENE SCRUBBER OPERATOR Temperature 36.2 C (97.1 F) 08/17/2020 10:07 AM CDT Respiratory Rate 16 07/31/2020 1:14 PM CDT Oxygen Saturation 96% 10/04/2024 1:42 PM CHLOROBUTADIENE SCRUBBER OPERATOR Inhaled Oxygen Concentration - - Weight 70.8 kg (156 lb) 10/04/2024 1:42 PM CHLOROBUTADIENE SCRUBBER OPERATOR Height 154.9 cm (5' 1 ) 10/04/2024 1:42 PM CHLOROBUTADIENE SCRUBBER OPERATOR Body Mass Index 29.48 10/04/2024 1:42 PM CHLOROBUTADIENE SCRUBBER OPERATOR Plan of Treatment Not on file Procedures Procedure Name Priority Date/Time Associated Diagnosis Comments DEVICE CHECK - REMOTE Routine 11/22/2024 12:19 PM CHLOROBUTADIENE SCRUBBER OPERATOR Palpitations RBBB DEVICE CHECK - REMOTE Routine 10/21/2024 5:41 PM CHLOROBUTADIENE SCRUBBER OPERATOR Palpitations RBBB POCT LIPID PANEL Routine 10/04/2024 1:52 PM CHLOROBUTADIENE SCRUBBER OPERATOR Hyperlipidemia LDL goal <100 from Last 3 Months Results * DEVICE CHECK - REMOTE (11/22/2024 12:19 PM CHLOROBUTADIENE SCRUBBER OPERATOR) Anatomical Region Laterality Modality Other Narrative 12/13/2024 8:41 AM CHLOROBUTADIENE SCRUBBER OPERATOR Medtronic REVEAL LinQ II implanted January 27, 2023 for syncope. Patient had a routine [facility] remote transmission of their implantable loop recorder on November 22, 2024. Medications: None Interrogation of the patients device demonstrates that the Linq is functioning appropriately (0) Symptom events Auto Device detected events of, (0) Pause, (0) Bradycardia, (0) Tachy, (0) AT, (0) AF, Presenting Rhythm: Normal sinus rhythm at 92 bpm Battery: Good Plan: 1) Routine Remote with no new events. 2) Continue to monitor remotely. Harpreet Tinajero Device Putty Mixer Aron Joshi MD [facility] PROCE DURES Final Result * DEVICE CHECK - REMOTE (10/21/2024 5:41 PM CHLOROBUTADIENE SCRUBBER OPERATOR) Anatomical Region Laterality Modality Other Narrative 11/29/2024 8:51 AM CHLOROBUTADIENE SCRUBBER OPERATOR Medtronic LNQ22 Loop Recorder. Dx; Syncope, Palpitations. DOI 01/27/2023-Nila. [facility] remote monitoring. Routine ILR remote. Normal device function. Battery function-good. Presenting rhythm: NSR Medications: Diovan HCT Counters since last scheduled transmission on 08/23/24. No auto or patient recorded episodes noted. See scanned report. [facility] remote f/u 11/22/24. Jayson Reyes RN Aron Joshi MD [facility] PROCE DURES Final Result * POCT lipid panel (10/04/2024 1:52 PM CHLOROBUTADIENE SCRUBBER OPERATOR) Cholesterol, POC 164 mg/dL HDL, POC 55 mg/dL Triglycerides, POC 77 mg/dL LDL Cholesterol POC 93 mg/dL Chol/HDL Ratio, POC 1.7 Non-HDL Cholesterol, POC 109 mg/dL Cholesterol Total, POC 164 mg/dL Capillary blood 10/04/2024 1 :52 PM CHLOROBUTADIENE SCRUBBER OPERATOR Alea Parada NP POINT OF CARE TEST ORDERA TROY Edited Result - Final from Last 3 Months Insurance AETNA MEDICARE AETNA MEDICARE Care Teams High Risk Ob Relationship Specialty Start Date End Date Taryn Ball MD [address] [address] PCP - General Internal Medicine 07/31/20
--- OUTSIDE RECORDS SUMMARY | 2024-12-20 13:44 | XMS_ITS | Referral Summary ---
Author Organization [facility] Address [address] [place] [address] Care Team Providers Care Tool Trouble Shooter Name Role Phone Sharath Stock MD Primary Care Provider [phone] [facility],non-owned Affiliates and Associated Physician Practices is amultiple site organization consisting of ambulatory clinics and hospital sitesin [place], [place], [place] and [place]. This disclosure is being madepursuant to the Care Everywhere program and may not contain all information available regarding this patient. Last updated 18.[facility] Lema21 Allergies Active Allergy Reactions Criticality Noted Date Comments Codeine Swelling Low 05/21/2012 Swelling around eyes, Swelling around eyes, Swelling around eyes Mvzbdkwv-Csgcriblgn-Ejtaag prudence Rash Medium 05/21/2012 Active Problems Problem Noted Date Diagnosed Date Basal cell carcinoma of skin of scalp and neck 1 Social History Tobacco Use Types Packs/Day Years Used Date Smoking Tobacco: Never Smokeless Tobacco: Never Alcohol Use Standard Drinks/Week Comments No 0 (1 standard drink = 0.6 oz pur e alcohol) Sex and Gender Information Value Date Recorded Sex Assigned at Not on file Gender Identity Not on file Sexual Orientation Not on file Plan of Treatment Not on file Care Teams Tool Trouble Shooter Relationship Specialty Start Date End Date Sharath Stock MD PCP - General 04/05/09
--- OUTSIDE RECORDS SUMMARY | 2024-12-20 13:44 | XMS_ITS | Clinical Summary ---
Author Organization [facility] Address [address] [place] [address] Care Team Providers Care Medical Sales Associate Name Role Phone Amanda Ball MD Primary Care Provider Allergies Active Allergy Reactions Criticality Noted Date Comments Adhesive Rash Low Codeine Swelling,Angioedema High 05/21/2012 Swelling around eyes Swelling around eyes, Swelling around eyes, Swelling around eyes Swelling around eyes, Swelling around eyes, Swelling around eyes face Swelling around eyes Swelling around eyes, Swelling around eyes, Swelling around eyes Other reaction(s): Facial Swelling Zwwirpfz-Ndqhvfyaqs-V olymyxin Rash Medium 05/21/2012 Neomycin-Bacitracnzn- Polymyxnb Rash Low 09/05/2016 Medications Glucosamine-Chondr oit-Vit C-Mn 470-250-14-5 mg Tablet 2 times daily. Activ e fluticasone (FLONASE) 50 mcg/spray [place], Suspension Administer 1 [place] in each nostril 1 time daily as needed . 04/27/20 18 Active Lactobac no.41-Bifidobact no.7 (PROBIOTIC-10) 70 mg (3 billion cell) Capsule Indications: once a day Active aspirin (ECOTRIN EC) 81 mg Tablet, Delayed Release (E.C.) Take 81 mg by mouth daily. Active loratadine (CLARITIN) 10 mg tablet TK 1 T PO QD PRN 2 04/04/20 18 Active valsartan-hydroCHL OROthiazide (DIOVAN HCT) 80-12.5 mg tablet Take 1 Tablet by mouth daily . 02/12/20 18 Active atorvastatin (LIPITOR) 40 mg tablet every 24 hours. Acti ve DAILY MULTI-VITAMIN ORAL Daily Multi-Vitamin Take one tablet daily Active herpes zoster, shingles, vaccine PF, ZVL, (Zostavax, PF,) 19,400 unit Suspension for Reconstitution Zostavax (PF) 19,400 unit/0.65 mL subcutaneous suspension Active cholecalciferol, Vitamin D3, 50 mcg (2,000 unit) Tablet Active FIBER, DEXTRIN, ORAL Take by mouth. Activ e Active Problems Problem Noted Date Diagnosed Date Status post right hip replacement 10/20/2020 History of left breast cancer 10/20/2020 Crohn's disease without complication 2019 HTN (hypertension), benign 04/30/2018 Hyperlipidemia 04/30/2018 Acute deep vein thrombosis ( DVT) of proximal vein of lower extremity 04/30/2018 Diverticulitis 04/30/2018 Iron deficiency anemia 04/30/2018 Encounters Date Type Department Care Team Description 12/01/2024 External Device Data STL ABSTRACTION Provider, Abstract 2024 External Device Data STL ABSTRACTION Provider, Abstract from Last 3 Months Family History Medical History Relation Name Comments High Cholesterol Father Hypertension Father Lung Cancer Father Heart Disease Paternal Grandmother Breast Cancer Sister Lung Cancer Sister Relation Name Status Comments Father Paternal Grandmother Sister Social History Tobacco Use Types Packs/Day Years Used Date Smoking Tobacco: Never Smokeless Tobacco: Never Tobacco Cessation:Counseling Given: Not Answered Comments No Sex and Gender Information Value Date Recorded Sex Assigned at Not on file Legal Sex Female 9:45 AM CDT Gender Identity Not on file Sexual Orientation Not on file Last Filed Vital Signs Vital Sign Reading Time Taken Comments Blood Pressure 139/80 12/22/2023 10:04 AM GRAVEL ROOFER Pulse 89 12/22/2023 10:02 AM GRAVEL ROOFER Temperature 35.9 C (96.7 F) 12/22/2023 10:02 AM GRAVEL ROOFER Respiratory Rate 14 12/22/2023 10:02 AM GRAVEL ROOFER Oxygen Saturation 98% 12/22/2023 10:02 AM GRAVEL ROOFER Inhaled Oxygen Concentration - - Weight 68.5 kg (151 lb) 12/22/2023 10:02 AM GRAVEL ROOFER Height 157.5 cm (5' 2 ) 08/13/2022 10:58 AM CDT Body Mass Index 27.62 08/13/2022 10:58 AM CDT Plan of Treatment Upcoming Encounters Date Type Department Care Team (Late st Contact Info) Description 12/22/2024 10:00 AM GRAVEL ROOFER Office Visit [facility] Oncology and Hematology - [place] [address] [place] [address] Clifton Monterroso MD [address] [place] [address] Health Maintenance Due Date Last Done Comments OSTEOPOROSIS SCREENING 2009 ZOSTER VACCINE (2 of 3) 10/05/2015 08/10/2015 RSV VACCINE (60+ or ) (1 - 1-dose 75+ series) 2019 PNEUMOCOCCAL VACCINE 65+ YEA RS (3 of 3 - PCV20 or PCV21) 12/15/2022 12/15/2017, 09/18/2006 INFLUENZA VACCINE (#1) 2024 , 08/18/2022, 08/23/2021, Additional history exists COVID-19 Vaccine (5 - 2023-2 5 season) 2024 09/12/2023, 08/04/2021, 12/22/2020, Additional history exists DTAP/TDAP/TD VACCINES (2 - T d or Tdap) 09/06/2024 09/06/2014 Medicare Advantage ([place]) Preventative Visit/Annual Wellness Visit 11/03/2024 COLORECTAL SCREENING Discontinued 11/03/2019 Colorectal Cancer Screening Discontinued FIT-DNA Q 3 years Discontinued FIT/FOBT Q 1 year Discontinued Flex Sig/CT Colonography Q 5 years Discontinued Insurance AETNA PPO [facility] Care Teams Medical Sales Associate Relationship Specialty Start Date End Date Amanda Ball MD PCP - General Internal Medicine 04/30/18
--- OUTSIDE RECORDS SUMMARY | 2024-12-20 13:44 | XMS_ITS | Clinical Summary ---
Author Organization [facility] Address [address] [facility] [address] [place] [address] Phone Care Team Providers Care Sales Center Manager Name Role Phone Gabriella Hein APRN, PULVERIZER MILL OPERATOR Unavailable [phone] Nitin Estrada DO Unavailable [phone] Amanda Ball MD Primary Care Provider Allergies Active Allergy Reactions Criticality Noted Date Comments Codeine Swelling face Neomycin-Bacitracin Zn-Polymyx Rash 09/05 Adhesive Tape Rash Medications Aspirin 81 MG TabletIndicatio ns:once a day Indications: once a day Active Biotin 1 MG CapsuleIndicati ons:once a day Indications: once a day Active Coenzyme Q10 10 MG CapsuleIndicati ons:once a day Indications: once a day Active valsartan (DIOVAN) 40 MG TabletIndicatio ns:once a day Indications: once a day Active Glucosamine-Cho ndroit-Vit C-Mn (GLUCOSAMINE-CH ONDROITIN) Tablet 2 times daily. Activ e Probiotic CapsuleIndicati ons:once a day Indications: once a day Active simvastatin (ZOCOR) 40 MG TabletIndicatio ns:once a day Indications: once a day Active Dexlansoprazole (DEXILANT) 60 MG CAPSULE DELAYED RELEASEIndicati ons:take 1 cap by mouth once daily Take 60 mg by mouth daily. Indications: take 1 cap by mouth once daily 90 Cap 3 6 Active FIBER DIET PO Take by mouth. A ctive Multiple Vitamins-Minera ls (MULTIVITAMIN PO) Take by mouth. Activ e polyethylene glycol (MIRALAX) Powder Use entire 255g bottle with 64oz of clear liquid as directed for colonoscopy prep. 255 g 7 Active Dexlansoprazole (Dexilant) 60 MG CAPSULE DELAYED RELEASE Take 60 mg by mouth daily. 90 Capsule 3 1 Active Active Problems Problem Noted Date Diagnosed Date Crohn's disease Immunizations Immunization Administration Dates Next Due Covid-19, Mrna, Lnp-s, Pf, 30 Mcg/0.3 Ml Dose (P fizer) 12/22/2020,11/29/2020 Influenza Vaccine greater than 3 yrs 08/23/2016 Family History Medical History Relation Name Comments Lung Cancer Father Colon Cancer Maternal Aunt Colon Cancer Maternal Uncle Dementia Mother Cancer Sister 1 lung Lung Cancer Sister 1 Breast Cancer Sister 2 Cancer Sister 2 breast Relation Name Status Comments Father Maternal Aunt Maternal Uncle Mother Sister 1 Sister 2 Social History Tobacco Use Types Packs/Day Years Used Date Smoking Tobacco: Never Smokeless Tobacco: Never Alcohol Use Standard Drinks/Week Comments No 0 (1 standard drink = 0.6 oz pur e alcohol) Comments No Sex and Gender Information Value Date Recorded Sex Assigned at Not on file Legal Sex Female 8:43 PM CDT Gender Identity Not on file Sexual Orientation Not on file Last Filed Vital Signs Vital Sign Reading Time Taken Comments Blood Pressure 119/71 06/01/2018 10:39 AM CDT Pulse 82 06/01/2018 10:39 AM CDT Temperature 36 C (96.8 F) 06/01/2018 10:39 AM CDT Respiratory Rate 19 06/01/2018 10:39 AM CDT Oxygen Saturation 98% 06/01/2018 10:39 AM CDT Inhaled Oxygen Concentration - - Weight 72.6 kg (160 lb) 06/01/2018 9:30 AM CDT Height 158.8 cm (5' 2.5 ) 06/01/2018 9:30 AM CDT Body Mass Index 28.8 06/01/2018 9:30 AM CDT Plan of Treatment Health Maintenance Due Date Last Done Comments DEXA Bone Density 1945 Hepatitis C Virus (HCV) Screening 1945 Mammogram 1954 Zoster Immunization (2 of 3) 10/04/2015 08/09/2015 Respiratory Syncytial Virus (RSV) Immunization (Adult) (1 - 1-dose 75+ series) 2019 Pneumococcal Immunization (50+ years) (3 of 3 - PCV20 or PCV21) 12/15/2022 12/15/2017, 09/18/2006 Influenza Immunization (#1) 07/04/202408/03, 08/22/2019, 08/22/2018, Additional history exists SARS-COV-2 Immunization ( season) 2024 08/04/2021, 12/22/2020, 11/29/2020 DTaP/Tdap/Td Immunization Discontinued 09/06/2014 TdaP Immunization Completed 09/06/2014 Pneumococcal Immunization Combined Discontinued 12/15/2017, 09/18/2006 Colonoscopy High Risk Discontinued 11/04/2019 , 11/13/2017, 04/06/2015 Colonoscopy Discontinued 11/04/2019, 11/03, 04/06/2015 Colorectal Cancer Screening Discontinued Cologuard Discontinued Hepatitis B Immunization Aged Out No longer eligible based on patient's age to complete this topic Immunochemical Fecal Occult Blood Discontinued Meningococcal Immunization (ACWY) Aged Out No longer eligible based on patient's age to complete this topic Rotavirus Immunization Aged Out No lo nger eligible based on patient's age to complete this topic Procedures Procedure Name Priority Date/Time Associated Diagnosis Comments COLONOSCOPY Routine 11/04/2019 from Last 3 Months or Most Recently Relevant to Health Maintenance Results * COLONOSCOPY (11/04/2019) us Nitin T Sean DO PROCEDURE/MINOR SURGICAL ORDERA BLES Final Result from Last 3 Months or Most Recently Relevant to Health Maintenance Care Teams Sales Center Manager Relationship Specialty Start Date End Date Amanda Ball MD [address] [place] [address] [place] [id number] PCP - General Internal Medicine 11/14/17 Gabriella Hein APRN, PULVERIZER MILL OPERATOR Nurse Practitioner Advanced Practice Nurse 09/05/16 Nitin Estrada DO Gastroenterology 11/14/17
--- OUTSIDE RECORDS SUMMARY | 2024-12-20 13:44 | XMS_ITS | Clinical Summary ---
Author Organization [facility] Address [address] [facility] [place] [address] Care Team Providers Care Aircraft Mechanic Structures Name Role Phone Sharath Stock MD Primary Care Provider [phone] Source Comments [facility] [email or web address],non-owned Affiliates and Associated Physician Practices is amultiple site organization consisting of ambulatory clinics and hospital sitesin [place], [place], [place] and [place]. This disclosure is being madepursuant to the Care Everywhere program and may not contain all information available regarding this patient. Last updated 18.[facility] [email or web address] Allergies Active Allergy Reactions Criticality Noted Date Comments Codeine Swelling Low 05/21/2012 Swelling around eyes, Swelling around eyes, Swelling around eyes Mxkmegzn-Cspnpfzfbo-Orwxhz prudence Rash Medium 05/21/2012 Active Problems Problem Noted Date Diagnosed Date Basal cell carcinoma of skin of scalp and neck 1 Family History Medical History Relation Name Comments Cancer Father Status: d None Known Mother Status: Alive Relation Name Status Comments Father Mother Social History Tobacco Use Types Packs/Day Years Used Date Smoking Tobacco: Never Smokeless Tobacco: Never Alcohol Use Standard Drinks/Week Comments No 0 (1 standard drink = 0.6 oz pur e alcohol) Sex and Gender Information Value Date Recorded Sex Assigned at Not on file Gender Identity Not on file Sexual Orientation Not on file Plan of Treatment Health Maintenance Due Date Last Done Comments BONE DENSITY TESTING 1944 DTAP/TDAP/TD VACCINES (1 - Tdap) 1963 PNEUMOCOCCAL VACCINE 50+ (1 of 1 - PCV) 1994 ZOSTER VACCINE (1 of 2) 1994 Respiratory Syncytial Virus (RSV) Vaccine Pt: or over 60 yrs (1 - 1-dose 75+ series) 2019 COVID-19 VACCINE (2023-2 5 season) 2024 INFLUENZA VACCINE (#1) 2024 DEPRESSION SCREENING 11/03/2024 MEDICARE AWV CALENDAR YEAR 2024 HEPATITIS B VACCINE Aged Out No longe r eligible based on patient's age to complete this topic HIB VACCINE Aged Out No longer eligi ble based on patient's age to complete this topic HPV VACCINE Aged Out No longer eligi ble based on patient's age to complete this topic MENINGOCOCCAL (Group B) VACCINE Aged Out No longer eligible based on patient's age to complete this topic MENINGOCOCCAL VACCINE Aged Out No wisam chris eligible based on patient's age to complete this topic Care Teams Aircraft Mechanic Structures Relationship Specialty Start Date End Date Sharath Stock MD PCP - General 04/05/09
--- OUTSIDE RECORDS SUMMARY | 2024-12-20 13:44 | XMS_ITS | Clinical Summary ---
Author Organization [facility] Address [address] [place] [phone] Care Team Providers Care Rig Operator Name Role Phone Taryn Ball MD Primary Care Provide r Allergies Active Allergy Reactions Criticality Noted Date Comments Codeine Swelling,Angioedema High 05/21/2012 Swelling around eyes, Swelling around eyes, Swelling around eyes face Swelling around eyes Swelling around eyes, Swelling around eyes, Swelling around eyes Other reaction(s): Facial Swelling Uhtaxxph-Xrtzrfhkgm-B olymyxin Rash Medium 05/21/2012 Medications valsartan-hydro CHLOROthiazide [...] implantable loop record er 01/28/2023 Overview (01/28/2023): Medtronic LNQ22 Loop Recorder. Dx; Syncope, Palpitations. DOI 01/27/2023- Fleissner. Ralph remote monitoring. Mitral valve disorder 01/09/2023 Recurrent syncope 09/19/2020 Palpitations 07/31/2020 Hyperlipidemia LDL goal <100 07/31/2020 Essential hypertension 07/31/2020 Pre-op examination 07/31/2020 RBBB 07/31/2020 Encounters Date Type Department Care Team Description 11/22/2024 9:15 AM NAVAL AIRCREWMAN TACTICAL HELICOPTER Ancillary Procedure [facility] Cardiology [address] [facility] [address] [place] [phone] Status post placement of implantable loop recorder (Primary Dx); Palpitations; RBBB 10/11/2024 7:30 AM NAVAL AIRCREWMAN TACTICAL HELICOPTER Ancillary Procedure [facility] Cardiology [address] [facility] [address] [place] [phone] Recurrent syncope (Primary Dx); Palpitations; RBBB; Status post placement of implantable loop recorder 10/04/2024 2:00 PM NAVAL AIRCREWMAN TACTICAL HELICOPTER Office Visit [facility] Cardiology [address] [facility] [address] [place] [address] Alea Parada NP History of syncope; Status post placement of implantable loop recorder; Essential hypertension; Hyperlipidemia LDL goal <100 from Last 3 Months Medical History Medical History Date Comments Hyperlipidemia Hypertension Family History Medical History Relation Name Comments Lung cancer Father Dementia Mother Relation Name Status Comments Father Mother Social History Tobacco Use Types Packs/Day Years Used Date Smoking Tobacco: Never Smokeless Tobacco: Never Tobacco Cessation:Counseling Given: Not Answered Comments Unknown Sex and Gender Information Value Date Recorded Sex Assigned at Not on file Legal Sex Female 4:11 PM NAVAL AIRCREWMAN TACTICAL HELICOPTER Gender Identity Not on file Sexual Orientation Not on file Obstetrics History Last Filed Vital Signs Vital Sign Reading Time Taken Comments Blood Pressure 144/62 10/04/2024 2:00 PM NAVAL AIRCREWMAN TACTICAL HELICOPTER Pulse 83 10/04/2024 1:42 PM NAVAL AIRCREWMAN TACTICAL HELICOPTER Temperature 36.2 C (97.1 F) 08/17/2020 10:07 AM CDT Respiratory Rate 16 07/31/2020 1:14 PM CDT Oxygen Saturation 96% 10/04/2024 1:42 PM NAVAL AIRCREWMAN TACTICAL HELICOPTER Inhaled Oxygen Concentration - - Weight 70.8 kg (156 lb) 10/04/2024 1:42 PM NAVAL AIRCREWMAN TACTICAL HELICOPTER Height 154.9 cm (5' 1 ) 10/04/2024 1:42 PM NAVAL AIRCREWMAN TACTICAL HELICOPTER Body Mass Index 29.48 10/04/2024 1:42 PM NAVAL AIRCREWMAN TACTICAL HELICOPTER Plan of Treatment Health Maintenance Due Date Last Done Comments Depression Screening 1944 Fall Risk Assessment 1944 Hepatitis B Screening 1962 Well Visit 65+ 2009 Zoster Vaccine (2 of 3) 10/05/2015 08/10/2015, 08/09 Pneumococcal vaccine 65+ (3 of 3 - PPSV23 or PCV20) 12/15/2018 12/15/2017, 09/18/2006 Osteoporosis Screening-Bone Density Scan 05/27/2024 05/27/2022 Covid-19 Vaccine (4 - 2023-2 5 season) 2024 08/04/2021, 12/22/2020, 11/29/2020 DTaP/Tdap/Td Vaccine (2 - Td or Tdap) 09/06/2024 09/06/2014 Influenza Vaccine Completed 08/12/2024, , 08/05/2021, Additional history exists Procedures Procedure Name Priority Date/Time Associated Diagnosis Comments DEVICE CHECK - REMOTE Routine 11/22/2024 12:19 PM NAVAL AIRCREWMAN TACTICAL HELICOPTER Palpitations RBBB DEVICE CHECK - REMOTE Routine 10/21/2024 5:41 PM NAVAL AIRCREWMAN TACTICAL HELICOPTER Palpitations RBBB POCT LIPID PANEL Routine 10/04/2024 1:52 PM NAVAL AIRCREWMAN TACTICAL HELICOPTER Hyperlipidemia LDL goal <100 from Last 3 Months Results * DEVICE CHECK - REMOTE (11/22/2024 12:19 PM NAVAL AIRCREWMAN TACTICAL HELICOPTER) Anatomical Region Laterality Modality Other Narrative 12/13/2024 8:41 AM NAVAL AIRCREWMAN TACTICAL HELICOPTER Medtronic REVEAL LinQ II implanted January 27, [...] Continue to monitor remotely. Harpreet Tinajero Device Sawsmith us Aron Joshi MD [facility] PROCE KEVIN Final Result * DEVICE CHECK - REMOTE (10/21/2024 5:41 PM NAVAL AIRCREWMAN TACTICAL HELICOPTER) Anatomical Region Laterality Modality Other Narrative 11/29/2024 8:51 AM NAVAL AIRCREWMAN TACTICAL HELICOPTER [employer] LNQ22 Loop Recorder. Dx; Syncope, Palpitations. DOI 01/27/2023- [facility] remote monitoring. Routine ILR remote. Normal device function. Battery function-good. Presenting rhythm: NSR Medications: Diovan HCT Counters since last scheduled transmission on 08/23/24. No auto or patient recorded episodes noted. See scanned report. [facility] remote f/u 11/22/24. Jayson Reyes RN Aron Joshi MD CV CARDIAC SERVICES PROCE KEVIN Final Result * POCT lipid panel (10/04/2024 1:52 PM NAVAL AIRCREWMAN TACTICAL HELICOPTER) Cholesterol, POC 164 mg/dL HDL, POC 55 mg/dL Triglycerides, POC 77 mg/dL LDL Cholesterol POC 93 mg/dL Chol/HDL Ratio, POC 1.7 Non-HDL Cholesterol, POC 109 mg/dL Cholesterol Total, POC 164 mg/dL Capillary blood 10/04/2024 1 :52 PM NAVAL AIRCREWMAN TACTICAL HELICOPTER Alea Parada NP POINT OF CARE TEST ORDERA BLES Edited Result - Final from Last 3 Months Insurance AETNA MEDICARE AETNA MEDICARE Care Teams Rig Operator Relationship Specialty Start Date End Date Taryn Ball MD [address] [place] [id number] PCP - General Internal Medicine 07/31/20
--- OUTSIDE RECORDS SUMMARY | 2024-12-20 13:44 | XMS_ITS | Patient Health Summary ---
Author Organization [facility] Address [address] [facility] [place] [address] Care Team Providers Care Digital Recruiter Name Role Phone Sharath Stock MD Primary Care Provider [phone] Note from [facility],non-owned Affiliates and Associated Physician Practices is amultiple site organization consisting of ambulatory clinics and hospital sitesin [place], [place], [place] and [place]. This disclosure is being madepursuant to the Care Everywhere program and may not contain all information available regarding this patient. Last updated 18.[facility] Allergies * Codeine(Swelling) -Low Criticality * Hxmfuyie-Roqlihuvxp-Mnssqteto(Rash) -Medium Criticality Active Problems Problem Noted Date Diagnosed Date [...] on file Sexual Orientation Not on file Procedures * DERMATOPATHOLOGY(Performed 05/25/2019) * DERMATOPATHOLOGY(Performed 09/10/2016) * DERMATOPATHOLOGY(Performed 03/01/2015) * DERMATOPATHOLOGY(Performed 05/01/2012) * DERMATOPATHOLOGY(Performed 01/13/2012) Results * DERMATOPATHOLOGY (05/25/2019 12:00 AM CDT) Only the most recent of5 resultswithin the time period is included. Case Report Dermatopathology Report Case: [id number] Authorizing Provider: Jayson Pena MD Collected: 05/25/2019 12:00 AM Pathologist: Bernice Hoang MD Received: 05/26/2019 12:41 PM Specimens: A) - Skin, right post trapezius neck B) - Skin, left upper back paraspinal C) - Skin, left post shoulder 4:03 PM [facility] DER[facility]OR[facility] Final Diagnosis Specimen A. SKIN, right post trapezius neck: LICHEN PLANUS-LIKE KERATOSIS (BENIGN LICHENOID KERATOSIS) (L82.1) Specimen B. SKIN, left upper back paraspinal: LICHEN PLANUS-LIKE KERATOSIS (BENIGN LICHENOID KERATOSIS) (L82.1) (see microscopic description) Specimen C. SKIN, left post shoulder: LICHEN PLANUS-LIKE KERATOSIS (BENIGN LICHENOID KERATOSIS) (L82.1) 4:03 PM [facility] DER[facility] Clinical History A-C: R/O BCC. 4:03 PM [facility] DERMATOPATHOLOGY [facility]OR[facility] Gross Description Specimen A: Received is one formalin filled container labeled with the patient's name and designated right post trapezius neck. The specimen consists of a shave biopsy measuring [id number]. Jar 0. Specimen B: Received is one formalin filled container labeled with the patient's name and designated left upper back paraspinal. The specimen consists of a shave biopsy measuring [id number]. Jar 0. Specimen C: Received is one formalin filled container labeled with the patient's name and designated left post shoulder. The specimen consists of a shave biopsy measuring [id number]. Jar 0. 4:03 PM [facility] DERMATOPATHOLOGY [facility]ORATORY Microscopic Description Specimen A. SKIN, [...] of basilar keratinocytes and scattered necrotic keratinocytes. 9 4:03 PM CDT DERMATOPATHOLOGY LABORATORY Disclaimer An external and internal positive and negative controls are appropriate for the histochemical, immunohistochemical and immunofluorescence stain(s) in this case (if any), except where stated explicitly. The performance characteristics of the stain(s) cited in this report were developed and its performance characteristic determined by the Dermatopathology Laboratory at [facility], directed by Dr. Michael Estevez. These tests need not be, and therefore are not, approved by the [place] Food and Drug Administration. The tests are used for clinical purposes. Billing Codes Specimen Charges Stain Charges 94124 13848 92150 1 1 1 9 4:03 PM CDT [...] LAB - PATHOLOGY/CYTO LOGY ORDERABLES DERMATOPATHOLOGY LABORATORY [facility] - Department of Dermatology [address] [facility]th Floor Lab [address] [phone] Care Teams Digital Recruiter Relationship Specialty Start Date End Date Sharath Stock MD PCP - General 04/05/09
[2024-12-20 13:46] LABS: Percent Iron Saturation 39 % (20-50)
[2024-12-20 13:49] LABS: Free T4 Free Thyroxine 1.09 ng/dL (0.78-2.19); Vitamin D 25 Hydroxy 64.2 ng/mL
[2024-12-20 14:01] LABS: Thyroid Stimulating Hormone < 0.015 uIU/mL (0.465-4.680)
== END 2024-12-20 10:37 | disposition home or self-care (01) ==
PROVIDERS: PCP Internal Medicine; Visit Provider Internal Medicine Hematology & Oncology
DX: E03.9 Hypothyroidism, unspecified (principal); D64.9 Anemia, unspecified; E78.5 Hyperlipidemia, unspecified; E55.9 Vitamin D deficiency, unspecified
CPT/HCPCS: 36415; 80053; 80061; 82306; 82607; 82728; 83540; 83550; 84439; 84443; 85025

== ENCOUNTER 2025-02-25 13:19 | Outpatient (CLI) | payer MEDICARE, SELFPAY ==
--- OUTSIDE RECORDS SUMMARY | 2025-02-25 13:22 | XMS_ITS | Referral Summary ---
Author Organization [facility] Address [address] [place] [phone] Care Team Providers Care Cribber Name Role Phone Taryn Ball MD Primary Care Provide r Encounters Date Type Department Care Team Description 02/14/2025 Orders Only [facility] Cardiology [address] [place] [phone] Aron Joshi MD Status post placement of implantable loop recorder (Primary Dx); Recurrent syncope 02/14/2025 8:00 AM CDT Ancillary Procedure [facility] Cardiology [address] [place] [phone] Recurrent syncope (Primary Dx); Palpitations; RBBB; Status post placement of implantable loop recorder 01/03/2025 8:00 AM USED CAR MAKE READY MECHANIC Ancillary Procedure [facility] Cardiology [address] [place] [phone] Recurrent syncope (Primary Dx); Palpitations; RBBB; Status post placement of implantable loop recorder from Last 3 Months Allergies Active Allergy Reactions Criticality Noted Date Comments Codeine Swelling,Angioedema High 05/21/2012 Swelling around eyes, Swelling around eyes, Swelling around eyes face Swelling around eyes Swelling around eyes, Swelling around eyes, Swelling around eyes Other reaction(s): Facial Swelling Yayhtlku-Thegqfuxib-M olymyxin Rash Medium 05/21/2012 Medications valsartan-hydro CHLOROthiazide (DIOVAN-HCT) 80-12.5 mg per tablet 06/13/2020 Active Lacto.acidophil usBif.animalis 32 billion cell capsule Indications: once a day Active atorvastatin (LIPITOR) 40 mg tablet 08/30/2020 Active FIBER, DEXTRIN, ORAL Take by mouth Take 5 capsules daily Active cholecalciferol (VITAMIN D-3) 2000 unit tablet Active multivitamin capsule Take 1 capsule by mouth daily Active Active Problems Problem Noted Date Diagnosed Date Status post placement of implantable loop record er 01/28/2023 Overview (01/28/2023): [place] LNQ22 Loop Recorder. Dx; Syncope, Palpitations. DOI [...] on file Legal Sex Female 4:11 PM USED CAR MAKE READY MECHANIC Gender Identity Not on file Sexual Orientation Not on file Last Filed Vital Signs Vital Sign Reading Time Taken Comments Blood Pressure 144/62 10/04/2024 2:00 PM USED CAR MAKE READY MECHANIC Pulse 83 10/04/2024 1:42 PM USED CAR MAKE READY MECHANIC Temperature 36.2 C (97.1 F) 08/17/2020 10:07 AM CDT Respiratory Rate 16 07/31/2020 1:14 PM CDT Oxygen Saturation 96% 10/04/2024 1:42 PM USED CAR MAKE READY MECHANIC Inhaled Oxygen Concentration - - Weight 70.8 kg (156 lb) 10/04/2024 1:42 PM USED CAR MAKE READY MECHANIC Height 154.9 cm (5' 1 ) 10/04/2024 1:42 PM USED CAR MAKE READY MECHANIC Body Mass Index 29.48 10/04/2024 1:42 PM USED CAR MAKE READY MECHANIC Plan of Treatment Not on file Procedures Procedure Name Priority Date/Time Associated Diagnosis Comments DEVICE CHECK - REMOTE Routine 02/14/2025 11:41 AM CDT Palpitations RBBB DEVICE CHECK - REMOTE Routine 01/03/2025 9:53 AM USED CAR MAKE READY MECHANIC Palpitations RBBB from Last 3 Months Results * DEVICE CHECK - REMOTE (02/14/2025 11:41 AM CDT) Anatomical Region Laterality Modality Other Narrative 02/18/2025 10:34 AM CDT Medtronic LNQ22 Loop Recorder. Dx; Syncope, Palpitations. DOI 01/27/2023-Nila. [facility]link remote monitoring. Routine ILR remote. Normal device function. Battery function-good. Presenting rhythm: NSR Medications: Diovan HCT 80-12.5 mg Counters since last scheduled transmission on 01/03/25. No auto or patient recorded episodes noted. See scanned report. [facility] remote f/u 03/29/25. Jayson Reyes RN Aron Joshi MD CV CARDIAC SERVICES PROCE DURES Final Result * DEVICE CHECK - REMOTE (01/03/2025 9:53 AM USED CAR MAKE READY MECHANIC) Anatomical Region Laterality Modality Other Narrative 01/04/2025 2:15 PM USED CAR MAKE READY MECHANIC Medtronic LNQ22 Loop Recorder. Dx; Syncope, Palpitations. DOI 01/27/2023-Nila. Carelink remote monitoring. Routine ILR remote. Normal device function. Battery function-good. Presenting rhythm: NSR Medications: Diovan HCT 80-12.5 mg Counters since last scheduled transmission on 11/22/24. No auto or patient recorded episodes noted. See scanned report. [facility] remote f/u 02/14/25. Jayson Reyes RN Aron Joshi MD CV CARDIAC SERVICES PROCE DURES Final Result from Last 3 Months Insurance AETNA MEDICARE AETNA MEDICARE Care Teams Cribber Relationship Specialty Start Date End Date Taryn Ball MD [address] [id number] PCP - General Internal Medicine 07/31/20
--- OUTSIDE RECORDS SUMMARY | 2025-02-25 13:22 | XMS_ITS | Clinical Summary ---
Author Organization [facility] Address [address] [place] [address] Care Team Providers Care Grid Trimmer Name Role Phone Amanda Ball MD Primary Care Provider Allergies Active Allergy Reactions Criticality Noted Date Comments Adhesive Rash Low Codeine Swelling,Angioedema High 05/21/2012 Swelling around eyes Swelling around eyes, Swelling around eyes, Swelling around eyes Swelling around eyes, Swelling around eyes, Swelling around eyes face Swelling around eyes Swelling around eyes, Swelling around eyes, Swelling around eyes Other reaction(s): Facial Swelling Xlhnakzi-Prbkfmzcmi-A olymyxin Rash Medium 05/21/2012 Neomycin-Bacitracnzn- Polymyxnb Rash Low 09/05/2016 Medications Glucosamine-Chondr oit-Vit C-Mn 233-196-73-5 mg Tablet 2 times daily. Activ e fluticasone (FLONASE) 50 mcg/spray [place], Suspension Administer 1 [place] in each nostril 1 time daily as [...] Encounters Date Type Department Care Team Description 02/22/2025 Orders Only [facility] Oncology and Hematology - [place] [address] [place] [phone] Clifton Monterroso MD Normocytic anemia (Primary Dx) 12/22/2024 External Device Data STL ABSTRACTION Provider, Abstract 12/01/2024 External Device Data STL ABSTRACTION Provider, [...] Comments Blood Pressure 139/80 12/22/2023 10:04 AM MUD WORKER Pulse 89 12/22/2023 10:02 AM MUD WORKER Temperature 35.9 C (96.7 F) 12/22/2023 10:02 AM MUD WORKER Respiratory Rate 14 12/22/2023 10:02 AM MUD WORKER Oxygen Saturation 98% 12/22/2023 10:02 AM MUD WORKER Inhaled Oxygen Concentration - - Weight 68.5 kg (151 lb) 12/22/2023 10:02 AM MUD WORKER Height 157.5 cm (5' 2 ) 08/13/2022 10:58 AM CDT Body Mass Index 27.62 08/13/2022 10:58 AM CDT Plan of Treatment Upcoming Encounters Date Type Department Care Team (Late st Contact Info) Description 02/25/2025 1:30 PM CDT Office Visit [facility] Oncology and Hematology - [place] [address] [place] [address] Sharon Thao MD [address] [place] [address] Health Maintenance Due Date Last Done Comments OSTEOPOROSIS SCREENING 2009 ZOSTER VACCINE (2 of 3) 10/05/2015 08/10/2015 RSV VACCINE (60+ or ) (1 - 1-dose 75+ series) 2019 PNEUMOCOCCAL VACCINE 50+ YEA RS (3 of 3 - PCV20 or PCV21) 12/15/2022 12/15/2017, 09/18/2006 INFLUENZA VACCINE (#1) 2024 , 08/18/2022, 08/23/2021, Additional history exists COVID-19 Vaccine (5 - 2023-2 5 season) 2024 09/12/2023, 08/04/2021, 12/22/2020, Additional history exists DTAP/TDAP/TD VACCINES (2 - T d or Tdap) 09/06/2024 09/06/2014 COLORECTAL SCREENING Discontinued 11/03/2019 Colorectal Cancer Screening Discontinued FIT-DNA Q 3 years Discontinued FIT/FOBT Q 1 year Discontinued Flex Sig/CT Colonography Q 5 years Discontinued Insurance [employer] PPO [facility] Care Teams Grid Trimmer Relationship Specialty Start Date End Date Amanda Ball MD PCP - General Internal Medicine 04/30/18
--- OUTSIDE RECORDS SUMMARY | 2025-02-25 13:22 | XMS_ITS | Encounter Summary ---
Author Organization [facility] Address [address] [place] [address] Care Team Providers Care Insecticide Supervisor Name Role Phone Sharath Stock MD Primary Care Provider [phone] Encounter Details Date Type Department Care Team (Late st Contact Info) Description 05/26/[address] 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 Gender Identity Not on file Sexual Orientation Not on file documented as of this encounter Plan of Treatment Not on file documented as of this encounter Procedures Procedure Name Priority Date/Time Associated Diagnosis Comments DERMATOPATHOLOGY Routine 05/25/2019 12:0 0 AM CDT documented in this encounter Results * DERMATOPATHOLOGY (05/25/2019 12:00 AM CDT) Case Report Dermatopathology Report Case: [id number] Authorizing Provider: Jayson Pena MD Collected: 05/25/2019 12:00 AM Pathologist: Bernice Hoang MD Received: 05/26/2019 12:41 PM Specimens: A) - Skin, right post trapezius neck B) - Skin, left upper back paraspinal C) - Skin, left post shoulder 4:03 PM T DERMATOPATHOLOGY LABORATORY Final Diagnosis Specimen A. SKIN, right post trapezius neck: LICHEN PLANUS-LIKE KERATOSIS (BENIGN LICHENOID KERATOSIS) (L82.1) Specimen B. SKIN, left upper back paraspinal: LICHEN PLANUS-LIKE KERATOSIS (BENIGN LICHENOID KERATOSIS) (L82.1) (see microscopic description) Specimen C. SKIN, left post shoulder: LICHEN PLANUS-LIKE KERATOSIS (BENIGN LICHENOID KERATOSIS) (L82.1) 4:03 PM T DERMATOPATHOLOGY LABORATORY Clinical History A-C: R/O BCC. 4:03 PM T DERMATOPATHOLOGY LABORATORY Gross Description Specimen A: Received is one formalin filled container labeled with the patient's name and designated right post trapezius neck. The specimen consists of a shave biopsy measuring [id number]. Jar 0. Specimen B: Received is one formalin filled container labeled with the patient's name and designated left upper back paraspinal. The specimen consists of a shave biopsy measuring [id number]. Jar 0. Specimen C: Received is one formalin filled container labeled with the patient's name and designated left post shoulder. The specimen consists of a shave biopsy measuring [id number]. Jar 0. 4:03 PM [facility] D[facility]MATOPATH[facility]Y LABORATORY Microscopic Description Specimen A. SKIN, [...] keratinocytes and scattered necrotic keratinocytes. 4:03 PM T DERMATOPATHOLOGY LABORATORY Disclaimer An external and internal positive and negative controls are appropriate for the histochemical, immunohistochemical and immunofluorescence stain(s) in this case (if any), except where stated explicitly. The performance characteristics of the stain(s) cited in this report were developed and its performance characteristic determined by the Dermatopathology Laboratory at [facility], directed by Dr. Michael Estevez. These tests need not be, and therefore are not, approved by the [place] Food and Drug Administration. The tests are used for clinical purposes. Billing Codes Specimen Charges Stain Charges 55165 76167 31822 1 1 1 9 4:03 PM CDT DERMATOPATHOLOGY LABORATORY Embedded Images 9 4:03 PM CDT DERMATOPATHOLOGY LABORATORY Pathology/Cytology TISSUE SPECIMEN FROM SKIN / Unknown 05/25/2019 05/26/2019 12:41 PM CDT Miscellaneous samples (specimen) TISSUE SPECIMEN FROM SKIN / Unknown 05/25/2019 05/26/2019 12:41 PM CDT Miscellaneous samples (specimen) TISSUE SPECIMEN FROM SKIN / Unknown 05/25/2019 05/26/2019 12:41 PM CDT Jayson Pena MD LAB - PATHOLOGY/CYTOLOGY ORD ERABLES Final Result DERMATOPATHOLOGY LABORATORY [facility] - Department of Dermatology [facility], 5th Floor Lab [address] [phone] documented in this encounter Visit Diagnoses Not on filedocumented in this encounter Care Teams Insecticide Supervisor Relationship Specialty Start Date End Date Sharath Stock MD PCP - General 04/05/09 documented as of this encounter
--- OUTSIDE RECORDS SUMMARY | 2025-02-25 13:22 | XMS_ITS | Continuity of Care Document ---
Author Organization [facility] Address [id number] [place] [address] [address] [place] [address] Phone Care Team Providers Care Precision Lens Generator Name Role Phone Ponce OD, Nitin Unavailable Unavailable Advance Directives Directive Yes / No Effective Date File Name No Information Encounters Encounter Description Practice Location Reason(s) For Visit Diagnoses Date Provider Providers Copied on Encounter [facility], [address], [place], [place], [id number], [place] tel:[phone] [facility] No Information Sep-2 9-200 5 Ponce OD Nitin. [address] , [address], [place], [address], [place]. tel:[phone] Family History Family Member Type Diagnosis Age At Onset No Information Payers Payer name Insurance type Covered democrat ID Authoriza tion(s) No Information Social History [...]
--- OUTSIDE RECORDS SUMMARY | 2025-02-25 13:22 | XMS_ITS | Clinical Summary ---
Author Organization [facility] Address [address] [address] [facility] [place] [address] Care Team Providers Care Radar Engineer Name Role Phone Sharath Stock MD Primary Care Provider [phone] Source Comments [facility],non-owned Affiliates and Associated Physician Practices is amultiple site organization consisting of ambulatory clinics and hospital sitesin [place], [place], [place] and [place]. This disclosure is being madepursuant to the Care Everywhere program and may not contain all information available regarding this patient. 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 Gender Identity Not on file Sexual Orientation [...] 2019 COVID-19 VACCINE (2023-2 5 season) 2024 DEPRESSION SCREENING 11/03/2024 INFLUENZA VACCINE (Season Ended) 2025 HEPATITIS B VACCINE Aged Out No longe r eligible based on patient's age to complete this topic HIB VACCINE Aged Out No longer eligi ble based on patient's age to complete this topic HPV VACCINE Aged Out No longer eligi ble based on patient's age to complete this topic MENINGOCOCCAL (Group B) VACC INE SHARED DECISION-MAKING Aged Out No longer eligibl e based on patient's age to complete this topic MENINGOCOCCAL GROUPS A/C/Y/W VACCINE Aged Out No longer eligible b ased on patient's age to complete this topic Insurance MEDICARE [place] [id number] Care Teams Radar Engineer Relationship Specialty Start Date End Date Sharath Stock MD PCP - General 04/05/09
--- OUTSIDE RECORDS SUMMARY | 2025-02-25 13:22 | XMS_ITS | Clinical Summary ---
Author Organization [facility] Address [address] [place] [phone] Care Team Providers Care Executive Chairman Of The Board Name Role Phone Taryn Ball MD Primary Care Provide r Allergies Active Allergy Reactions Criticality Noted Date Comments Codeine Swelling,Angioedema High 05/21/2012 Swelling around eyes, Swelling around eyes, Swelling around eyes face Swelling around eyes Swelling around eyes, Swelling around eyes, Swelling around eyes Other reaction(s): Facial Swelling Hkmtzdzm-Khdxyexlrg-W olymyxin Rash Medium 05/21/2012 Medications valsartan-hydro CHLOROthiazide [...] Date Type Department Care Team Description 02/14/2025 8:00 AM CDT Ancillary Procedure [facility] Cardiology [address] [place] [phone] Recurrent syncope (Primary Dx); Palpitations; RBBB; Status post placement of implantable loop recorder 02/14/2025 Orders Only [facility] Cardiology [address] [place] [phone] Aron Joshi MD Status post placement of implantable loop recorder (Primary Dx); Recurrent syncope 01/03/2025 8:00 AM DIRECTOR OF SOCIAL MEDIA MARKETING Ancillary Procedure [facility] Cardiology [address] [place] [phone] Recurrent syncope (Primary Dx); Palpitations; RBBB; Status post placement of implantable loop recorder from Last 3 Months Medical History Medical [...] on file Legal Sex Female 4:11 PM DIRECTOR OF SOCIAL MEDIA MARKETING Gender Identity Not on file Sexual Orientation Not on file Obstetrics History Last Filed Vital Signs Vital Sign Reading Time Taken Comments Blood Pressure 144/62 10/04/2024 2:00 PM DIRECTOR OF SOCIAL MEDIA MARKETING Pulse 83 10/04/2024 1:42 PM DIRECTOR OF SOCIAL MEDIA MARKETING Temperature 36.2 C (97.1 F) 08/17/2020 10:07 AM CDT Respiratory Rate 16 07/31/2020 1:14 PM CDT Oxygen Saturation 96% 10/04/2024 1:42 PM DIRECTOR OF SOCIAL MEDIA MARKETING Inhaled Oxygen Concentration - - Weight 70.8 kg (156 lb) 10/04/2024 1:42 PM DIRECTOR OF SOCIAL MEDIA MARKETING Height 154.9 cm (5' 1 ) 10/04/2024 1:42 PM DIRECTOR OF SOCIAL MEDIA MARKETING Body Mass Index 29.48 10/04/2024 1:42 PM DIRECTOR OF SOCIAL MEDIA MARKETING Plan of Treatment Health Maintenance Due Date Last Done Comments Depression Screening 1944 Fall Risk Assessment 1944 Hepatitis B Screening 1962 Well Visit 65+ 2009 Zoster Vaccine (2 of 3) 10/05/2015 08/10/2015, 08/09 Pneumococcal vaccine 65+ (3 of 3 - PCV20 or PCV21) 12/15/2022 12/15/2017, 09/18/2006 Osteoporosis Screening-Bone Density Scan 05/27/2024 [...] CHECK - REMOTE Routine 01/03/2025 9:53 AM DIRECTOR OF SOCIAL MEDIA MARKETING Palpitations RBBB from Last 3 Months Results * DEVICE CHECK - REMOTE (02/14/2025 11:41 AM CDT) Anatomical Region Laterality Modality Other Narrative 02/18/2025 10:34 AM CDT MedCURRENT LNQ22 Loop Recorder. Dx; Syncope, Palpitations. DOI 01/27/2023-Nila. [facility] remote monitoring. Routine ILR remote. Normal device function. Battery function-good. Presenting rhythm: NSR Medications: Diovan HCT 80-12.5 mg Counters since last scheduled transmission on 01/03/25. No auto or patient recorded episodes noted. See scanned report. [facility] remote f/u 03/29/25. Jayson Reyes, MASTER us Aron Joshi MD [facility] Final Result * DEVICE CHECK - REMOTE (01/03/2025 9:53 AM DIRECTOR OF SOCIAL MEDIA MARKETING) Anatomical Region Laterality Modality Other Narrative 01/04/2025 2:15 PM DIRECTOR OF SOCIAL MEDIA MARKETING Medtronic LNQ22 Loop Recorder. Dx; Syncope, Palpitations. DOI 01/27/2023-Nila. [facility] remote monitoring. Routine ILR remote. Normal device function. Battery function-good. Presenting rhythm: NSR Medications: Diovan HCT 80-12.5 mg Counters since last scheduled transmission on 11/22/24. No auto or patient recorded episodes noted. See scanned report. [facility] remote f/u 02/14/25. Jayson Reyes RN us rAon Joshi MD [facility] KEVIN Final Result from Last 3 Months Insurance [facility] MEDICARE T MEDICARE Care Teams Executive Chairman Of The Board Relationship Specialty Start Date End Date Taryn Ball MD [address] [phone] PCP - General Internal Medicine 07/31/20
--- OUTSIDE RECORDS SUMMARY | 2025-02-25 13:22 | XMS_ITS | Data Portability ---
Author Organization [place] [facility] [email or web address], Main Office Address [address] [place] [id number] Care Team Providers Care Medical Records Administrator Name Role Phone AMANDA BALL Primary Care Provider AMANDA BALL Referring Provider [phone] ELVIRA JOSHI Professional System Administrator Assessment Encounter Date Assessment Date Assessment LastModified by Organization Details LastModified Time 09/22/2023 09/22/2023 03/19/2023: AST: 46 TSH: 0.015L, FT4: 1.07 H/H: 11.2/34.6 09/17/2023: H/H 10.2/32.8 Not available 09/22/2023 09:08:05 03/22/2024 03/22/2024 03/19/2023: AST: 46 TSH: 0.015L, FT4: 1.07 H/H: 11.2/34.6 09/17/2023: H/H 10.2/32.8 12/22/2023: HGB: 11.1 03/17/2024: Hepatitis Panel: Neg TSH 0.205L ALP 148 H/H 10.3/32.7 Not available 03/22/2024 11:51:41 09/20/2024 09/20/2024 03/19/2023: AST: 46 TSH: 0.015L, FT4: 1.07 H/H: 11.2/34.6 09/17/2023: H/H 10.2/32.8 12/22/2023: HGB: 11.1 03/17/2024: Hepatitis Panel: Neg TSH 0.205L ALP 148 H/H 10.3/32.7 09/16/2024: TSH<0.015L, FT4 1.21 GGT WNL BUN 21H LDL 116 H/H 11.3/35.1 clif Not available 09/20/2024 10:19:08 01/12/2025 01/12/2025 03/19/2023: AST: 46 TSH: 0.015L, FT4: 1.07 H/H: 11.2/34.6 09/17/2023: H/H 10.2/32.8 12/22/2023: HGB: 11.1 03/17/2024: Hepatitis Panel: Neg TSH 0.205L ALP 148 H/H 10.3/32.7 09/16/2024: TSH<0.015L, FT4 1.21 GGT WNL BUN 21H LDL 116 H/H 11.3/35.1 12/20/2024: Dr Monterroso BUN 23, GFR 54 H/H 10.6/33.4 TSH <0.015, FT4 1.09 45 minutes spent with patient, reviewed consult notes from her manager financial, labs reviewed in detail, chart updated [email or web address] Not available 01/12/2025 11:40:51 Plan of Treatment Reminders Order Date Submit Date Provider Last Modified By Organization Details Last Modified Time Details Appointments Follow Up 15 2024 11:00A M Amanda villavicencio MD Not available Not available Not available Lab vitamin D, 25-hydrox y, total, serum [address] (Lab), [address] [place] [address] [address], [place], [address], 01/13/2025 11:54:39 lipid panel, serum [address] (Lab), [address] [place] [address] [address], [place], [address], 01/13/2025 11:54:39 CMP, serum or plasma [address] (Lab), [address] [place] [address] [address], [place], [address], 01/13/2025 11:54:39 CBC w/ auto diff [address] (Lab), [address] [place] [address] [address], [place], [address], 01/13/2025 11:54:40 vitamin D, 25-hydrox y, total, serum [address] (Lab), [address] [place] [address] [address], [place], [address], 09/21/2024 10:49:24 TSH, serum or plasma [address] (Lab), [address] [place] [address], [place], [address], 09/21/2024 10:49:25 T4, free, serum [address] (Lab), [address] [place] [address], [place], [address], 09/21/2024 10:49:25 lipid panel, serum [address] (Lab), [address] [place] [address], [place], [address], 09/21/2024 10:49:24 CMP, serum or plasma 2023 024 [facility] (Lab), [address] [place] [address], [address], 12/20/2024 19:57:33 CBC w/ auto diff 2023 024 [facility] (Lab), [address] [place] [address], [place], [address], 12/20/2024 19:57:33 gamma-glu tamyl transfera se (ggt), serum [address] (Lab), [address] [place] [address], [address], 09/16/2024 10:39:50 lipid panel, serum [address] [place] [address] (Lab), [address] [place] [address], [address], 09/16/2024 10:33:59 CMP, serum or plasma [address] [place] [address] (Lab), [address] [place] [address], [address], 09/16/2024 10:36:05 CBC w/ auto diff [address] [place] [address] (Lab), [address] [place] [address], [address], 09/16/2024 10:38:30 vitamin D, 25-hydrox y, total, serum [address] (Lab), [address] [place] [address], [address], 09/16/2024 10:39:09 TSH, serum or plasma [address] [place] [address] (Lab), [address] [place] [address], [address], 09/16/2024 10:40:23 T4, free, serum [address] [place] [address] (Lab), [address] [place] [address], [address], 09/16/2024 10:41:05 vitamin D, 25-hydrox y, total, serum [address] (Lab), [address] [place] [address], [address], 03/22/2024 14:51:31 gamma-glu tamyl transfera se (ggt), serum [address] (Lab), [facility] [address], [place], [address], 03/22/2024 14:51:32 hepatitis panel (A+B+C), acute, serum [address] (Lab), [address] [place] [address] [address], [place], [address], 03/22/2024 14:51:32 TSH, serum or plasma [address] (Lab), [address] [place] [address] [address], [place], [address], 03/22/2024 14:51:32 T4, free, serum [address] (Lab), [address] [place] [address] [address], [place], [address], 03/22/2024 14:51:32 lipid panel, serum [address] (Lab), [address] [place] [address] [address], [place], [address], 03/22/2024 14:51:31 CMP, serum or plasma 2022 023 [facility] (Lab), [address] [place] [address] [address], [place], [address], 12/22/2023 12:38:17 CBC w/ auto diff 2022 023 [facility] (Lab), [address] [place] [address] [address], [place], [address], 12/22/2023 12:38:18 Referral otolaryng ologist referral - Please call patient to schedule an appointme nt. Thank you. 2024 025 ABIMAEL Vasques, [address] [facility], [place], [address], 01/20/2025 10:50:35 cardiolog ist referral 2023 024 [place] [address] Elvira Joshi, [address] [facility] [address], [place], [address], 09/22/2024 14:30:53 cardiolog ist referral 2023 024 ALONZO Joshi, [address] [facility] [address], [place], [address], 04/16/2024 12:59:06 oncologis t referral 2022 023 [email or web address] Clifton Monterroso MD, [address], [place], [address], 05/19/2024 16:58:22 Procedures None recorded. Surgeries None recorded. Imaging DEXA, axial skeleton - Please call patient to schedule. [address] ([facility]), [address] [place], [address], 02/17/2025 11:52:26 US, thyroid - Please call patient to schedule. [address] ([facility]), [address] [place], [address], 11/01/2024 15:49:51 US, thyroid [address] ([facility]), [address] [place], [address], 09/21/2024 16:53:05 US, thyroid 2022 023 [facility] ([facility]), [address] [place], [address], 12/08/2023 09:23:11 Medication Orders None recorded. Patient TargetsNo targets recorded. Patient Instructions Encounter Date Encounter Id Patient Instructions Last Modified By Organization Details Last Modified Time 03/22/2024 [id number] dementia rating scale-2* [email or web address] Not available 03/22/2024 12:01:12 Timed Up and Go test (TUG)* [email or web address] 2 Not available 03/22/2024 12:01:12 multi-dimensiona l health assessment questionnaire* [email or web address] 2 Not available 03/22/2024 12:01:12 alcohol misuse* [email or web address] Not available 03/23/2024 13:56:20 depression screening* [email or web address] Not available 03/23/2024 13:57:[address] [facility] Plan and Screening Recommendations Advance Directives - Do you have one? Yes Advance Directives - Do we have your advance directive on file in your health record? No, please bring in a copy at your earliest convenience Primary Prevention/Interven tion (prevents or decreases the chance of common diseases from occurring) Smoking Risk: Non Smoker Alcohol Misuse Screening: Negative Weight: Appropriate Overwei ght continue your current weight loss efforts try to lose 5% of your body weight try to lose 10% of your body weight Physical activity: Appropriate physical activity decrease sitting time to no more than 5hr/day Nutrition: Good Average Refer to attached handout Heart-Healthy Diet: After Your Visit Fall Risk (screened today): Low Intermediate Refer to attached handout Preventing Falls: After your Visit Vaccines Pneumococcal: Ordered Recommended today Recommended today, but you have declined No further needed Influenza: Your next one in the fall of this year Chronic Disease Risks Stroke: Low Risk Intermediate Risk I have no recommendations Heart Attack: Low risk Intermediate Risk I have no recommendations Clogging of the Arteries: Low risk Intermediate Risk I have no recommendations Diabetes: Low Risk I have no recommendations Secondary Prevention/Interven tion (detects treatable diseases before they may cause symptoms, disability, or ) Breast Cancer Screening with mammogram: Cervical/Uterine/Ov earl Cancer Screening: Your next PAP/pelvic in: Referral to tram operator Recomm ended today Osteoporosis Screening: Your next DEXA in: Ordered Date Screening Last Performed: 05/03/2022 Colon Cancer Screening: Colonoscopy Date Screening Last Performed: 12/19/21_ Eye Disease Screening: Ordered Recommended today Dementia Risk: Low I have no recommendations Depression Screening: Negative [email or web address] Not available 03/22/2024 11:48:41 Reason for Referral Referring Physician: Amanda Ball, Internal Medicine, Encounter Date: 09/22/2023 Professional System Administrator Referral for Es sential hypertension Referring Physician: Amanda Ball Internal Medicine, Encounter Date: 03/22/2024 Professional System Administrator Referral for Es sential hypertension Referring Physician: Amanda Ball Internal Medicine, Encounter Date: 09/20/2024 Clay Shop Supervisor Referral fo r Thyroid nodule Please call patient to schedule an appointment. Thank you. Referring Physician: Amanda Ball, Internal Medicine, Encounter Date: 01/12/2025 Results Created Date Observation Date Name Description Value Unit Range Abnormal Flag Note LastModifiedBy Organization Detail LastModifiedTime 09/16/20 24 09/16/2024 CBC/C OMPLE TE BLD COUNT W/DIF F white blood cells 5.0 x10'3 /uL 4.2-10 .8 Not Available [facility] (Lab) [address] [place], [address], 09/16/2024 19:25:30 09/16/20 24 09/16/2024 CBC/C OMPLE TE BLD COUNT W/DIF F red blood cells 3.58 x10'6 /uL 3.80-5 .20 low Not Available [facility] (Lab) [address] [place], [address], 09/16/2024 19:25:30 09/16/20 24 09/16/2024 CBC/C OMPLE TE BLD COUNT W/DIF F hemoglobin 11.3 g/dL 12.0-1 5.6 low Not Available [facility] (Lab) [address] [place], [address], 09/16/2024 19:25:30 09/16/20 24 09/16/2024 CBC/C OMPLE TE BLD COUNT W/DIF F hematocrit 35.1 % 35.7-4 5.7 low Not Available [facility] (Lab) [address] [place], [address], 09/16/2024 19:25:30 09/16/20 24 09/16/2024 CBC/C OMPLE TE BLD COUNT W/DIF F mean red cell volume 98.0 fL 82.0-9 9.0 Not Available [facility] (Lab) [address] [place], [address], 09/16/2024 19:25:30 09/16/20 24 09/16/2024 CBC/C OMPLE TE BLD COUNT W/DIF F mean red cell hemoglobin 31.6 pg 27.0-3 3.0 Not Available [facility] (Lab) [address] [place], [address], 09/16/2024 19:25:30 09/16/20 24 09/16/2024 CBC/C OMPLE TE BLD COUNT W/DIF F mean RBC HGB concentratio n 32.2 g/dL 31.0-3 6.0 Not Available [facility] (Lab) [address] [place], [address], 09/16/2024 19:25:30 09/16/20 24 09/16/2024 CBC/C OMPLE TE BLD COUNT W/DIF F red cell distribution width 12.5 % 11.8-1 5.5 Not Available [facility] (Lab) [address] [place], [address], 09/16/2024 19:25:30 09/16/20 24 09/16/2024 CBC/C OMPLE TE BLD COUNT W/DIF F platelets 272 x10'3 /uL 150-40 0 Not Available [facility] (Lab) [address] [place], [address], 09/16/2024 19:25:30 09/16/20 24 09/16/2024 CBC/C OMPLE TE BLD COUNT W/DIF F mean platelet volume 10.4 fL 9.0-12 .4 Not Available [facility] (Lab) [address] [place], [address], 09/16/2024 19:25:30 09/16/20 24 09/16/2024 CBC/C OMPLE TE BLD COUNT W/DIF F neutrophils 61.4 % 39.0-7 2.0 Not Available [facility] (Lab) [address] [place], [address], 09/16/2024 19:25:30 09/16/20 24 09/16/2024 CBC/C OMPLE TE BLD COUNT W/DIF F lymphocytes 25.9 % 16.0-4 7.0 Not Available [facility] (Lab) [address] [place], [address], 09/16/2024 19:25:30 09/16/20 24 09/16/2024 CBC/C OMPLE TE BLD COUNT W/DIF F monocytes 8.7 % 5.0-12 .0 Not Available [facility] (Lab) [address] [place], [address], 09/16/2024 19:25:30 09/16/20 24 09/16/2024 CBC/C OMPLE TE BLD COUNT W/DIF F eosinophils 3.4 % 1.0-7. 0 Not Available [facility] (Lab) [address] [place], [address], 09/16/2024 19:25:30 09/16/20 24 09/16/2024 CBC/C OMPLE TE BLD COUNT W/DIF F basophils 0.4 % 0.0-2. 0 Not Available [facility] (Lab) [address] [place], [address], 09/16/2024 19:25:30 09/16/20 24 09/16/2024 CBC/C OMPLE TE BLD COUNT W/DIF F immature granulocytes 0.2 % 0.00-0 .50 Not Available [facility] (Lab) [address] [place], [address], 09/16/2024 19:25:30 09/16/20 24 09/16/2024 CBC/C OMPLE TE BLD COUNT W/DIF F neutrophils, absolute count 3.04 x10'3 /uL 1.5-8. 0 Not Available [facility] (Lab) [address] [place], [address], 09/16/2024 19:25:30 09/16/20 24 09/16/2024 CBC/C OMPLE TE BLD COUNT W/DIF F lymphocytes, absolute count 1.28 x10'3 /uL 1.07-3 .43 Not Available [facility] (Lab) [address] [place], [address], 09/16/2024 19:25:30 09/16/20 24 09/16/2024 CBC/C OMPLE TE BLD COUNT W/DIF F monocytes, absolute count 0.43 x10'3 /uL 0.29-0 .99 Not Available [facility] (Lab) [address] [place], [address], 09/16/2024 19:25:30 09/16/20 24 09/16/2024 CBC/C OMPLE TE BLD COUNT W/DIF F eosinophils, absolute count 0.17 x10'3 /uL 0.02-0 .53 Not Available [facility] (Lab) [address] [place], [address], 09/16/2024 19:25:30 09/16/20 24 09/16/2024 CBC/C OMPLE TE BLD COUNT W/DIF F basophils, absolute count 0.02 x10'3 /uL 0.01-0 .08 Not Available [facility] (Lab) [address] [place], [address], 09/16/2024 19:25:30 09/16/20 24 09/16/2024 CBC/C OMPLE TE BLD COUNT W/DIF F immature granulocytes ,absolute 0.01 x10'3 /uL 0.00-0 .05 Not Available [facility] (Lab) [address] [place], [address], 09/16/2024 19:25:30 09/16/20 24 09/16/2024 CBC/C OMPLE TE BLD COUNT W/DIF F nucleated red blood cells 0.0 % -0 Not Available [facility] (Lab) [address] [place], [address], 09/16/2024 19:25:30 09/16/20 24 09/16/2024 CBC/C OMPLE TE BLD COUNT W/DIF F NRBC# 0.00 x10'3 /uL Not Available [facility] (Lab) [address] [place], [address], 09/16/2024 19:25:30 09/16/20 24 09/16/2024 LIPID PANEL cholesterol 193 mg/dL 140-19 9 NIH MANUEL NSUS RECOM MENDA TION FOR NACHO STERO L: ADULT CHILD LOW RISK: <200 <170 BORDE RLINE : <200- 239 ----- HIGH RISK: >240 >200 Not Available [facility] (Lab) [address] [place], [address], 09/16/2024 19:40:51 09/16/20 24 09/16/2024 LIPID PANEL triglyceride s 69 mg/dL 0-150 NIH MANUEL NSUS REPOR T RECOM MENDA TION FOR TRIGL YCERI KIMMIE: ADULT CHILD LOW RISK: <150 ----- BODER LINE: 150-1 99 ----- HIGH RISK: >200 ----- Not Available [facility] (Lab) [address] [place], [address], 09/16/2024 19:40:51 09/16/20 24 09/16/2024 LIPID PANEL HDL cholesterol 63 mg/dL 40- Not Available [facility] (Lab) [address] [place], [address], 09/16/2024 19:40:51 09/16/20 24 09/16/2024 LIPID PANEL LDL cholesterol, calculated 116 mg/dL 0-130 NIH MANUEL NSUS REPOR T RECOM MENDA TIONS FOR LDL: ADULT CHILD LOW RISK <130 <110 (OPTI MAL LDL) <100 ----- BORDE RLINE : 130-1 59 ----- HIGH RISK: >160 >130 A TRIGL YCERI DE RESUL T >400 INVAL IDATE S THE CALCU LATIO N FOR LDL FRACT IONAT ION - THE LDL RESUL T WILL NOT BE REPOR SAMANTHA. Not Available [facility] (Lab) [address] [place], [address], 09/16/2024 19:40:51 09/16/20 24 09/16/2024 COMPR EHENS STEVE METAB OLIC PANEL sodium 135 mmol/ L 137-14 5 low Not Available [facility] (Lab) [address] [place], [address], 09/16/2024 19:40:56 09/16/20 24 09/16/2024 COMPR EHENS STEVE METAB OLIC PANEL potassium 4.3 mmol/ L 3.5-5. 1 Not Available [facility] (Lab) [address] [place], [address], 09/16/2024 19:40:56 09/16/20 24 09/16/2024 COMPR EHENS STEVE METAB OLIC PANEL chloride 101 mmol/ L 98-107 Not Available [facility] (Lab) [address] [place], [address], 09/16/2024 19:40:56 09/16/20 24 09/16/2024 COMPR EHENS STEVE METAB OLIC PANEL carbon dioxide 27 mmol/ L 22-30 Not Available [facility] (Lab) [address] [place], [address], 09/16/2024 19:40:56 09/16/20 24 09/16/2024 COMPR EHENS STEVE METAB OLIC PANEL anion gap 11.3 mmol/ L 14- low Not Available [facility] (Lab) [address] [place], [address], 09/16/2024 19:40:56 09/16/20 24 09/16/2024 COMPR EHENS STEVE METAB OLIC PANEL glucose 95 mg/dL 70-99 Not Available [facility] (Lab) [address] [place], [address], 09/16/2024 19:40:56 09/16/20 24 09/16/2024 COMPR EHENS STEVE METAB OLIC PANEL BUN 21 mg/dL 8-19 high Not Available [facility] (Lab) [address] [place], [address], 09/16/2024 19:40:56 09/16/20 24 09/16/2024 COMPR EHENS STEVE METAB OLIC PANEL creatinine 0.99 mg/dL 0.66-1 .25 Not Available [facility] (Lab) [address] [place], [address], 09/16/2024 19:40:56 09/16/20 24 09/16/2024 COMPR EHENS STEVE METAB OLIC PANEL GFR 54 Refer ence Range : [place] GFR Healt hy Adult : >60 mL/mi n/1.7 3 m2 Chron ic Kidne y Disea se: 15-60 mL/mi n/1.7 3 m2 Kidne y Failu re: <15/m L/min /1.73 m2 www.n iddk. nih.g ov The MDRD study equat ion has not been valid ated in child chelsea <18 years of age; pregn ant women ; the elder ly >85 years of age; or in some racia l or ethni c subgr oups, such as Hispa nics. Outsi de the valid ated dilcia eters , estim ated GFR is less accur ate, requi ring clini kiana judgm ent on a case- by-ca se basis . Clini kiana inter preta tion for other races and ages must be made by the clini manuel. The MDRD study equat ion has not been valid ated for the evalu ation of serum creat inine relat ed to nutri dorothea l statu s or medic ation usage . For perso ns <18 years of age, a pedia tric GFR calcu lator is avail able on the [facility] websi te: https ://karena w.kar krusey.o rg/pr ofess ional s/kdo qi/gf r_cal culat or Not Available [facility] (Lab) [address] [place], [address], 09/16/2024 19:40:56 09/16/20 24 09/16/2024 COMPR EHENS STEVE METAB OLIC PANEL alkaline phosphatase 119 U/L 38-126 Not Available [facility] (Lab) [address] [place], [address], 09/16/2024 19:40:56 09/16/20 24 09/16/2024 COMPR EHENS STEVE METAB OLIC PANEL alanine aminotransfe rase 26 U/L 0-35 Not Available [facility] (Lab) [address] [place], [address], 09/16/2024 19:40:56 09/16/20 24 09/16/2024 COMPR EHENS STEVE METAB OLIC PANEL aspartate aminotransfe rase 33 U/L 15-37 Not Available [facility] (Lab) [address] [place], [address], 09/16/2024 19:40:56 09/16/20 24 09/16/2024 COMPR EHENS STEVE METAB OLIC PANEL bilirubin, total 0.90 mg/dL 0.20-1 .30 Not Available [facility] (Lab) [address] [place], [address], 09/16/2024 19:40:56 09/16/20 24 09/16/2024 COMPR EHENS STEVE METAB OLIC PANEL calcium 10.3 mg/dL 8.4-10 .2 high Not Available [facility] (Lab) [address] [place], [address], 09/16/2024 19:40:56 09/16/20 24 09/16/2024 COMPR EHENS STEVE METAB OLIC PANEL total protein 7.7 g/dL 6.3-8. 2 Not Available [facility] (Lab) [address] [place], [address], 09/16/2024 19:40:56 09/16/20 24 09/16/2024 COMPR EHENS STEVE METAB OLIC PANEL albumin 4.3 g/dL 3.0-4. 4 Not Available [facility] (Lab) [address] [place], [address], 09/16/2024 19:40:56 09/16/20 24 09/16/2024 COMPR EHENS STEVE METAB OLIC PANEL globulin 3.4 g/dL 2.6-4. 2 Not Available [facility] (Lab) [address] [place], [address], 09/16/2024 19:40:56 09/16/20 24 09/16/2024 COMPR EHENS STEVE METAB OLIC PANEL A/G ratio 1.3 ratio 1.0-2. 0 Not Available [facility] (Lab) [address] [place], [address], 09/16/2024 19:40:56 09/16/20 24 09/16/2024 GGT/G -GLUT AMYL TRANS FERAS E gamma-glutam yl transferase 14 U/L 12-43 Not Available [facility] (Lab) [address] [place], [address], 09/16/2024 19:40:58 09/16/20 24 09/16/2024 T4 FREE free T4 1.21 NG/dL 0.78-2 .19 Not Available [facility] (Lab) [address] [place], [address], 09/16/2024 19:59:48 09/16/20 24 09/16/2024 VITAM IN D 25-HY DROXY [id number] 57.3 NG/mL 30-100 Vitam in D Statu s: Defic ient: <20 ng/mL Insuf ficie nt: 20-29 ng/mL Suffi cient : 30-10 0 ng/mL Not Available [facility] (Lab) [address] [place], [address], 09/16/2024 20:00:18 09/16/20 24 09/16/2024 TSH thyroid-stim ulating hormone <0.015 uIU/m L 0.465- 4.680 low Not Available [facility] (Lab) [address] [place], [address], 09/16/2024 20:13:11 09/18/20 23 09/17/2023 US, liver No observ ation record ed. [email or web address] [address], [address], 09/22/2023 09:49:21 12/08/19 24 12/05/2023 US, thyro id No observ ation record ed. [email or web address] [address], [address], 11/12/2024 12:29:22 02/08/20 24 02/08/2024 CT, head + brain , w/o contr ast No observ ation record ed. [email or web address], [address], 09/21/2024 09:09:40 02/08/20 24 02/08/2024 CT, cervi kiana spine , w/o contr ast No observ ation record ed. [email or web address], [address], 09/21/2024 09:09:52 02/08/20 24 02/08/2024 CT, pelvi s, w/o contr ast No observ ation record ed. [place] [id number], [place], [address], 09/21/2024 09:10:40 07/20/20 24 07/20/2024 MAMMO , scree santana, digit al, bilat eral No observ ation record ed. [address], [place], [address], 09/21/2024 09:11:03 11/15/19 25 11/15/2024 US, thyro id No observ ation record ed. [facility] [address] [facility], [place], [address], 11/15/2024 13:18:43 Result Notes None recorded. Problems Name Problem SNOMED Code Status Onset Date Resolution Date Notes Provider Name and Address Organization Details Recorded Time Carcinoma of breast 674320044 Active Not Available [facility] 3 10:51:09 Crohn's disease 41615359 Active Not Available [facility] 3 10:51:09 Vitamin D deficiency 95975186 Active 2021 Not Available [facility] 3 10:51:09 Hypothyroi dism 44673577 Active 2021 Not Available [facility] 3 10:51:09 Hip pain 65037871 Active Not Available [facility] 3 10:51:09 Hyperlipid emia 66232715 Active Not Available [facility] 3 10:51:09 Essential hypertensi on 55878962 Active Not Available [facility] 3 10:51:09 Osteoporos is 49217458 Active Not Available [facility] 3 10:51:09 Pain of right knee joint 2919439791526 00 Active 2022 Not Available [facility] 3 10:51:09 Anemia 845869654 Active 2022 Not Available [facility] 3 10:51:09 Pain in right hip joint 8581815965771 02 Active 2022 Not Available [facility] 3 10:51:09 Thyroid stimulatin g hormone level below reference range 763294162 Active 2022 Not Available [facility] 3 10:51:09 Syncope 782277695 Active 2022 Not Available [facility] 3 10:51:09 Gastroesop hageal reflux disease without esophagiti s 315801433 Active 2022 Not Available [facility] 3 10:51:09 Malignant tumor of breast 074286529 Active 2022 Not Available [facility] 3 10:51:09 Increased liver function 53303477 Active 2022 Not Available [facility] 3 10:51:09 Ganglion cyst of right hand 8197735872637 07 Active 2022 Not Available [facility] 3 10:51:09 Pain of left knee joint 4296689076665 07 Active 2022 Not Available [facility] 3 10:51:09 Upper respirator y infection 51859002 Active 2022 Not Available [facility] 3 10:51:09 Tear of medial meniscus of knee 208064450 Active 2022 Pilar De Los Santos CMA null, [facility] [employer] [facility] 3 10:18:25 Allergic rhinitis 54280800 Active 2022 Amanda moreno MD [address], [address], [place], [address] , [employer] [facility] [employer] [facility] 3 09:26:56 Chronic kidney disease 971398723 Active 2024 Amanda moreno MD [address], [place], [address] , [facility] [email or web address] [facility] [employer] [facility] 5 11:39:10 Thyroid nodule [id number] Active 2024 Amanda moreno MD [address] [facility], [facility] [address], [place], [address] , [place] [employer] 11:42:42 Problem Notes None recorded. Procedures Surgical History Date Name Laterality Status Provider Name and Address Organization Details Recorded Time 03/22/20 24 Medicare Wellness CPT Code, subsequent completed Nithin Henry LPN [employer] 03/18/2024 17:09:57 08/23/20 20 Hip surgery completed Not Available [facility] 01/02/20 02:48:31 11/04/19 20 Date of Last Colonoscopy completed Not Available [facility] 01/01/2023 02:48:27 09/29/20 19 Most Recent Bone Density completed Not Available [facility] 01/01/2023 02:48:27 08/05/20 13 Colonoscopy completed Not Available [facility] 01/02/20 02:48:31 procedure on skin completed Not Available [facility] 01/01/2023 02:48:31 Gallbladder Surgery completed Not Available [facility] 01/01/2023 02:48:31 Tonsillectomy completed Not Available [facility] 01/01/2023 02:48:31 Breast Surgery completed Not Available [facility] 01/01/2023 02:48:31 lumpectomy of breast completed Not Available [facility] 01/01/2023 02:48:31 Imaging Results Imaging Date Name Status LastModified by Organiz ation Details LastModified Time 09/17/2023 US, liver completed [email or web address] [address], [address], 09/22/2023 09:49:21 12/05/2023 US, thyroid completed [email or web address] [address], [address], 11/12/2024 12:29:22 02/08/2024 CT, head + brain, w/o contrast completed [email or web address] [place] [address], [address], 09/21/2024 09:09:40 02/08/2024 CT, cervical spine, w/o contrast completed [address], [place], [address], 09/21/2024 09:09:52 02/08/2024 CT, pelvis, w/o contrast completed [address], [place], [address], 09/21/2024 09:10:40 07/20/2024 MAMMO, screening, digital, bilateral completed [address], [place], [address], 09/21/2024 09:11:03 11/15/2024 US, thyroid active [facility] [address], [place], [address], 11/15/2024 13:18:43 Procedure Notes None recorded. Medical Equipment None Reported. Allergies Allergen ID Allergen Name Allergen Category Reaction Reaction Severity Criticality Documentation Date Start Date Code Code System Note Provider Name and Address Organization Details Recorded Time 4834 bacitraci n / neomycin / polymyxin B medicatio n rash Not available Not available 01/01/2023 96575 9 RxNorm Not Available [facility] 3 03:04:05 4835 codeine medicatio n facial swelling Not available Not available 01/01/2023 2670 RxNorm Not Available [facility] 3 03:04:05 4836 adhesive tape environme nt,medica tion rash Not available Not available 01/01/2023 95832 UNK Not Available [facility] 3 03:04:05 Medications Name Sig Start Date Stop Date Status Note LastModified by Organization Details LastModified Time amoxicill in 500 mg capsule TK FOUR CS PO 1 HOUR B DAPP 03/22 completed Not Available Not Available Not Available atorvasta tin 40 mg tablet TAKE 1 TABLET BY MOUTH DAILY active Not Available Not Available No t Available azelastin e 0.05 % eye drops INSTILL 1 DROP INTO AFFECTED EYE(S) BY OPHTHALM IC ROUTE 2 TIMES PER DAY x 10 DAYS active Not Available Not Available No t Available azithromy griffin 250 mg tablet uud 06/09 completed Not Available Not Available Not Available nystatin 100,000 unit/gram topical ointment APPLY QID TO RASH ON CORNERS OF LIPS UTD 12/15 completed Not Available Not Available Not Available benzonata te 200 mg capsule TAKE 1 CAPSULE BY MOUTH THREE TIMES DAILY NEEDED FOR COUGH 08/07 completed Not Available Not Available Not Available lisinopri l 20 mg tablet active Not Available Not Available Not Available prednison e 20 mg tablet TAKE 3 TABLETS BY MOUTH DAILY 03/18 completed Not Available Not Available Not Available alendrona te 70 mg tablet active Not Available Not Available Not Available fluoroura cil 5 % topical cream 12/15 completed Not Available Not Available Not Available Flonase 50 mcg/actua tion nasal spray,larry pension [place] 1 spray every day by intranas al route as needed. active Not Available Not Available No t Available metronida zole 500 mg tablet TAKE 1 TABLET BY MOUTH EVERY 8 HOURS FOR 7 DAYS 10/11 completed Not Available Not Available Not Available Aspir-Low 81 mg tablet,de layed release Take 1 tablet every day by oral route. 08/30 completed Not Available Not Available Not Available ciproflox acin 500 mg tablet TK 1 T PO Q 12 H FOR 7 DAYS 10/11 completed Not Available Not Available Not Available hydrocodo ne 10 mg-acetam inophen 325 mg tablet TK ONE T PO Q 4 TO 6 H PRN active Not Available Not Available No t Available tramadol 50 mg tablet TAKE 1-1.5 TABLET BY MOUTH THREE TIMES DAILY NEEDED FOR FOR PAIN 09/23 completed Not Available Not Available Not Available triamcino lone acetonide 0.1 % topical cream as needed active Not Available Not Available No t Available amoxicill in 500 mg tablet TAKE 4 TABLETS BY MOUTH 1 HOUR BEFORE DENTAL PROCEDUR E active Not Available Not Available No t Available simvastat in 40 mg tablet TAKE 1 TABLET BY MOUTH EVERY DAY 10/15 completed Not Available Not Available Not Available acyclovir 800 mg tablet active Not Available Not Available Not Available valsartan 80 mg-hydroc hlorothia zide 12.5 mg tablet TAKE 1 TABLET BY MOUTH DAILY 2024 active Not Available Not Available Not Avai lable amoxicill in 875 mg tablet TK ONE T PO BID 09/12 completed Not Available Not Available Not Available potassium chloride ER 20 mEq tablet,ex tended release(p art/cryst ) Take 1 tablet every day by oral route for 5 days. active Not Available Not Available No t Available Kenalog 10 mg/mL suspensio n for injection in office procedur e, administ ered by provider 09/[address] [facility]: [id number] 02-20 Not Available Not Available Not Available meclizine 25 mg tablet active Not Available Not Available Not Available cephalexi n 500 mg capsule active Not Available Not Available Not Available oseltamiv ir 75 mg capsule TAKE 1 CAPSULE BY MOUTH EVERY 12 HOURS FOR 5 DAYS 08/07 completed Not Available Not Available Not Available lisinopri l 10 mg tablet active Not Available Not Available Not Available fluoromet holone 0.1 % eye drops,larry pension INSTILL 1 DROP IN BOTH EYES FOUR TIMES DAILY FOR 10 DAYS 09/20 completed Not Available Not Available Not Available omeprazol e 20 mg capsule,d elayed release active Not Available Not Available Not Available polyethyl loreto glycol 3350 17 gram/dose oral powder USE ENTIRE BOTTLE WITH 64 OZ OF CLEAR LIQUID UTD FOR COLONOSC OPY PREP 12/15 completed Not Available Not Available Not Available methylpre dnisolone 4 mg tablets in a dose pack FOLLOW PACKAGE DIRECTIO NS 08/21 completed Not Available Not Available Not Available ondansetr on 4 mg disintegr ating tablet active Not Available Not Available Not Available loratadin e 10 mg tablet TK 1 T PO QD PRN 10/11 completed Not Available Not Available Not Available amoxicill in 875 mg-potass ium clavulana te 125 mg tablet TAKE 1 TABLET BY MOUTH EVERY 12 HOURS 08/07 completed Not Available Not Available Not Available oxycodone 5 mg tablet TK 1/2 T PO Q 4 H PRN active Not Available Not Available No t Available chlorhexi dine gluconate 0.12 % mouthwash active Not Available Not Available No t Available aspirin 81 mg 08/30 completed Not Available Not Available Not Available Co Q-10 Take one Tablet daily 08/22 completed Not Available Not Available Not Available Imodium A-D 1 Tablet 2 Times Daily 09/20 completed Not Available Not Available Not Available biotin Take one tablet daily 08/30 completed Not Available Not Available Not Available Glucosami ne Take one tablet bid 03/26 completed With chondroi tin Not Available Not Available Not Available fiber 5 Capsule Daily 2018 active Not Available Not Available Not Avai lable Daily Multi-Vit samuels Take one tablet daily 2016 active Not Available Not Available Not Avai lable Zostavax (PF) 19,400 unit/0.65 mL subcutane ous suspensio n 03/23 completed Not Available Not Available Not Available Adacel (Tdap Adolesn/A dult)(PF) 2 Lf-(2.5-5 -3-5)-5 Lf/0.5 mL IM syringe active Not Available Not Available Not Available azelastin e 205.5 mcg (0.15 %) nasal spray [place] 1 spray twice a day by intranas al route. 12/13 completed Not Available Not Available Not Available Zyrtec 10 mg capsule Take by oral route as needed. active Not Available Not Available No t Available Dexilant 60 mg capsule, delayed release qd 09/23 completed Not Available Not Available Not Available Probiotic Take one capsule daily 2016 active Not Available Not Available Not Avai lable sodium,po tassium,m ag sulfates 17.5 gram-3.13 gram-1.6 gram oral soln 09/20 completed Not Available Not Available Not Available ropivacai ne (PF) 5 mg/mL (0.5 %) injection solution in office procedur e, administ ered by provider 09/[address] [facility] [id number] 02-01 Not Available Not Available Not Available Eliquis 2.5 mg tablet TK 1 T PO Q 12 H active Not Available Not Available No t Available baclofen 5 mg tablet TAKE 1 TABLET BY MOUTH THREE TIMES DAILY NEEDED FOR MUSCLE SPASM 09/23 completed Not Available Not Available Not Available turmeric 03/26 completed Not Available Not Available Not Available aspirin 81 mg capsule Take by oral route. 03/18 completed Not Available Not Available Not Available Vitals Date Recorded Body height Body mass index (BMI) Body weight Body temperature Heart rate Systolic blood pressure Diastolic blood pressure Provider Name and Address Organization Details Last Updated DateTime 3 154.94 cm 28.5 kg/m2 22096.4 5 g 97.4 [degF] 96 /min 140 mm[Hg] 62 mm[Hg] BRANDAN Brewer [facility] [employer] [facility] 3 09:03:38 Date Recorded Body height Body mass index (BMI) Body weight Body temperature Heart rate Respiratory rate Oxygen saturation Oxygen saturation in Arterial blood by Pulse oximetry Pain severity - 0-10 verbal numeric rating [Score] - Reported Systolic blood pressure Diastolic blood pressure Provider Name and Address Organization Details Last Updated DateTime 4 154.94 cm 28.3 kg/m2 17337.8 6 g 97.7 [degF] 81 /min 14 /min 96 % 96 % 0 122 mm[Hg] 78 mm[Hg] Nithin Henry LPN [facility] [employer] [facility] 4 11:09:20 Date Recorded Body height Provider Name an d Address Organization Details Last Updated DateTime 09/16/2024 154.94 cm Quita Gomez RN [facility] [employer] [facility] 09/16/2024 10:07:35 Date Recorded Body height Body mass index (BMI) Body weight Body temperature Heart rate Oxygen saturation Oxygen saturation in Arterial blood by Pulse oximetry Systolic blood pressure Diastolic blood pressure Provider Name and Address Organization Details Last Updated DateTime 4 154.94 cm 28.9 kg/m2 53641.6 3 g 97.4 [degF] 80 /min 97 % 97 % 120 mm[Hg] 60 mm[Hg] BRANDAN Brewer [facility] [employer] [facility] 4 10:15:03 Date Recorded Body height Body mass index (BMI) Body weight Body temperature Heart rate Systolic blood pressure Diastolic blood pressure Provider Name and Address Organization Details Last Updated DateTime 5 154.94 cm 29.3 kg/m2 06465.8 2 g 97.6 [degF] 84 /min 144 mm[Hg] 82 mm[Hg] QuitaBRANDAN Chopra [place] [facility] 11:29:24 Social History Question Answer Notes LastModified by Organization Details LastModified Time Tobacco Smoking Status Never Smoker Not Available [facility] 01/01/2023 02:36:31 Do You Have An Advance Directive? Yes MIGRATION.030 [id number] Information not available 01/01/2023 What Is Your Level Of Alcohol Consumption? Occasional Wine On The Holidays MIGRATION.030 [id number] Information not available 01/01/2023 Are You Blind Or Do You Have Difficulty Seeing? No MIGRATION.030 [id number] Information not available 01/01/2023 What Is Your Level Of Caffeine Consumption? Moderate MIGRATION.030 [id number] Information not available 01/01/2023 How Much Tobacco Do You Chew? None MIGRATION.030 [id number] Information not available 01/01/2023 In The 14 Days Before Symptom Onset, Have You Had Close Contact With A Laboratory-conf irmed COVID-19 While That Case Was Ill? No MIGRATION.0301 [id number] Information not available 01/01/2023 In The 14 Days Before Symptom Onset, Have You Had Close Contact With A Person Who Is Under Investigation For COVID-19 While That Person Was Ill? No MIGRATION.0301 [id number] Information not available 01/01/2023 Are You Currently Employed? No [email or web address] Information not available 03/22/2024 Are You Deaf Or Do You Have Serious Difficulty Hearing? No MIGRATION.030 [id number] Information not available 01/01/2023 What Type Of Diet Are You Following? REGULAR MIGRATION.030 [id number] Information not available 01/01/2023 Which Illicit Or Recreational Drugs Have You Used? None MIGRATION.030 483176 Information not available 01/01/2023 Do You Or Have You Ever Used E-cigarettes Or Vape? Never Used Electronic Cigarettes MIGRATION.030 [id number] Information not available 01/01/2023 What Is The Highest Grade Or Level Of School You Have Completed Or The Highest Degree You Have Received? [id number] Education Information not available 03/22/2024 What Is Your Occupation? Retired MIGRATION.030 [id number] Information not available 01/01/2023 Have There Been Any Changes To Your Family Or Social Situation? 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 Unknown MIGRATION.0301 [id number] Information not available 01/01/2023 Are There Any Guns Present In Your Home? No MIGRATION.0301 [id number] Information not available 01/01/2023 Do You Use Insect Repellent Routinely? No MIGRATION.0301 012200 Information not available 01/01/2023 Where Do You Live? [facility] MIGRATION.0301 [id number] Information not available 01/01/2023 Presence Of Domestic Violence No [email or web address] Information not available 03/22/2024 Guns Present In The Home? Yes [email or web address] Information not available 03/22/2024 Are You Able To Care For Yourself? Yes [email or web address] Information not available 03/22/2024 Are You Blind Or Do Yo Have Difficulty Seeing? Yes Night Blindness [email or web address] Information not available 03/22/2024 Are You Deaf Or Do You Have Serious Difficulty Hearing? Yes Chris. Hearing Aids Information not available 03/22/2024 General Stress Level? Moderate [email or web address] Information not available 03/22/2024 Live Alone Of With Others? With Others [email or web address] Information not available 03/22/2024 Do You Have A Medical Power Of Boot Maker? No MIGRATION.0301 [id number] Information not available 01/01/2023 What Was The Date Of Your Most Recent Tobacco Screening? 01/12/2025 [email or web address] Information not available 01/12/2025 Have You Ever Been Counseled For Unhealthy Alcohol Use? No [email or web address] Information not available 03/22/2024 Do You Have Any Pets? No MIGRATION.0301 [id number] Information not available 01/01/2023 What Is Your Relationship Status? MIGRATION.0301 [id number] Information not available 01/01/2023 Do You Use Your Seat Belt Or Car Seat Routinely? Yes MIGRATION.0301 [id number] Information not available 01/01/2023 Do You Have Smoke And Carbon Monoxide Detectors In Your Home? Yes MIGRATION.0301 909121 Information not available 01/01/2023 Are You Passively Exposed To Smoke? No MIGRATION.0301 [id number] Information not available 01/01/2023 Do You Or Have You Ever Used Smokeless Tobacco? Never Used Smokeless Tobacco MIGRATION.0301 [id number] Information not available 01/01/2023 Are There Any Smokers In Your House? No MIGRATION.0301 849000 Information not available 01/01/2023 How Much Tobacco Do You Smoke? No MIGRATION.0301 [id number] Information not available 01/01/2023 Do You Feel Stressed (tense, Restless, Nervous, Or Anxious, Or Unable To Sleep At Night)? [id number] [email or web address] Information not available 03/22/2024 Do You Use Any Illicit Or Recreational Drugs? No MIGRATION.0301 [id number] Information not available 01/01/2023 Do You Use Sunscreen Routinely? Yes MIGRATION.0301 [id number] Information not available 01/01/2023 Has Tobacco Cessation Counseling Been Provided? No N/A MIGRATION.0301 [id number] Information not available 01/01/2023 How Many Years Have You Smoked Tobacco? 0 MIGRATION.0301 021006 Information not available 01/01/2023 Have You Recently Traveled Abroad? No MIGRATION.0301 [id number] Information not available 01/01/2023 Do You Have Any Dietary Restrictions? No MIGRATION.0301 350639 Information not available 01/01/2023 Do You Or Have You Ever Used Any Other Forms Of Tobacco Or Nicotine? No MIGRATION.0301 673717 Information not available 01/01/2023 How Many Days In The Past Year Have You Consumed 4 Or More Drinks? 0 [email or web address] Information not available 03/22/2024 Sex: Female Functional Status Question Answer Note LastModified by Organizat ion Details LastModified Time Do you have difficulty walking or climbing stairs? No MIGRATION.[id number] 026 Information not available 01/01/2023 Do you have transportation difficulties? No MIGRATION.[id number] 026 Information not available 01/01/2023 Are you able to walk? YESWOREST MIGRATION.1565573 026 Information not available 01/01/2023 Do you have difficulty doing errands alone? No MIGRATION.2905421 026 Information not available 01/01/2023 Are you able to care for yourself? Yes MIGRATION.6003203 026 Information not available 01/01/2023 Do you have difficulty dressing or bathing? No MIGRATION.8486010 026 Information not available 01/01/2023 What is your exercise level? Occasional MIGRATION.[id number] 026 Information not available 01/01/2023 Mental Status Question Answer Note LastModified by Organizat ion Details LastModified Time Do you have difficulty concentrating, remembering or making decisions? No MIGRATION.[id number] 6 Information not available 01/01/2023 Family History Relationship Description Onset Age of this Age Resolved Age Notes LastModified by Organization Details LastModified Time Father Benign essential hypertension MIGRATION.043 [id number] Not available 01/01/2023 02:48:32 Father Carcinoma in situ of lung deceas ed MIGRATION.129 [id number] Not available 01/01/2023 02:48:32 Mother Heart disease MIGRATION.559 [id number] Not available 01/01/2023 02:48:32 Mother Dementia deceas ed MIGRATION.532 [id number] Not available 01/01/2023 02:48:33 Sister Malignant tumor of lung MIGRATION.291 [id number] Not available 01/01/2023 02:48:33 Sister Malignant tumor of breast MIGRATION.373 [id number] Not available 01/01/2023 02:48:33 Sister Malignant neoplasm of brain MIGRATION.458 [id number] Not available 01/01/2023 02:48:33 Unspecified Relation Hypertensive disorder MIGRATION.038 [id number] Not available 01/01/2023 02:48:33 Unspecified Relation Family history of malignant neoplasm MIGRATION.820 [id number] Not available 01/01/2023 02:48:33 Medical History Condition Response NERVE DISEASE N BLINDNESS N RHEUMATIC FEVER N KIDNEY STONES N BLADDER PROBLEMS N MRSA N OTHER # 1 N POLIO N LUNG DISEASE/DISORDER N HISTORY OF DRUG ABUSE N COPD N RADIATION / CHEMOTHERAPY Y Other # 2 N BLOOD DISEASES N EAR OR HEARING PROBLEMS N MUMPS N SHINGLES N BOWEL PROBLEMS N DEPRESSION (INCLUDING POST ) N STROKE/TIA N ULCERS N BENIGN PROSTATIC HYPERPLASIA N MEASLES N HYPOTENSION N MYOCARDIAL INFARCTION N OBESITY N GERD/NAUSEA Y ANEURYSM N URINARY/BLADDER/KIDNEY PROBLEMS N CORONARY ARTERY DISEASE (CAD) N ADDICTION CONCERNS N ENDOMETRIOSIS N Impotence N USE OF BLOOD THINNERS N SKIN PROBLEMS Y GASTROINTESTINAL DISORDER N PERIPHERAL VASCULAR DISEASE N MUSCLE,JOINT OR BONE PROBLEMS N GASTROINTESTINAL BLEEDING N BLOOD CLOTS Y ASTHMA N CATARACTS N ERECTILE DYSFUNCTION N VARICOSITIES N GI PROBLEMS N Low Testosterone N INFERTILITY N AIDS/HIV N CHEMOTHERAPY / RADIATION N LIVER DISEASE N MALE HYPOGONADISM N HYPERTENSION Y Deficiency Y TOURETTE'S N ANXIETY DISORDER N BLOOD TRANSFUSION N ANEMIA/BLOOD DISORDER Y CHRONIC EAR INFECTIONS N BRONCHITIS N TUBERCULOSIS N GLAUCOMA N FOOT PROBLEM N DIVERTICULITIS N CHICKENPOX N SLEEP APNEA N INFECTIOUS DISEASE N HEART ARRHYTHMIA N PROSTATE N INSOMNIA N HIGH CHOLESTEROL / HYPERLIPIDEMIA Y HYPERTHYROIDISM N EYE PROBLEMS N EDEMA N CHRONIC PAIN SYNDROME N HYPOTHYROIDISM N CAROTID BLOCKAGE N CONSTIPATION N BACK / NECK PROBLEMS N ATHEROSCLEROSIS N BREAST PROBLEMS N DIALYSIS N ECZEMA N OSTEOPOROSIS Y ARTHRITIS Y APPENDICITIS N DIABETES, TYPE N BAD TEETH N ENT N HEARTBURN / REFLUX Y AUTISM SPECTRUM DISORDER (ASD) N HEPATITIS / LIVER DISEASE N GOUT N SLEEP DISORDER N ALZHEIMER'S DISEASE N Brain Problems N HERPES N DEMENTIA N HEADACHES/MIGRAINES N SEIZURES/EPILEPSY N VASCULAR DISEASE N PACEMAKER N Blood Disorder N DIZZINESS N HEART DISEASE/HEART PROBLEMS N KIDNEY DISEASE Y MULTIPLE SCLEROSIS N CARDIAC ARRHYTHMIA N CANCER: SPECIFY Y ATRIAL FIBRILLATION N Gall Stones N PULMONARY EMBOLISM N AUTOIMMUNE DISEASE N Gynecological History Statement/Question Response Menses Monthly N Date of Last Pap Date of Last Mammogram 04/17/2021 Date of Last Colonoscopy 11/04/2019 Most Recent Bone Density 09/29/2019 Obstetrics History GPAL:G 0 P 0 0 0 0 Immunizations Vaccine Type Date Status Note Provider Nam e and Address Organization Details Recorded Time RSV, recombinant, protein subunit RSVpreF, adjuvant reconstituted, 0.5 mL, PF 3 completed BRANDAN Brewer [facility] [email or web address] 01/12/2025 11:25:44 COVID-19, mRNA, LNP-S, PF, choco-sucrose, 30 mcg/0.3 mL 3 completed BRANDAN Brewer [employer] [facility] [email or web address] 01/12/2025 11:25:45 Influenza, high-dose, trivalent, PF 2 completed Not Available [facility] 04/15/2023 00:38:59 Influenza, split virus, trivalent, preservative 1 completed Not Available [facility] 04/15/2023 00:38:59 SARS-COV-2 (COVID-19) vaccine, UNSPECIFIED 1 completed Not Available [facility] 04/15/2023 00:38:59 SARS-COV-2 (COVID-19) vaccine, UNSPECIFIED 1 completed Quita Murphy, RMA null, [facility] 09/20/2024 10:06:59 Influenza, high-dose, trivalent, PF 9 completed Quita Redmond, RMA null, [facility] 09/20/2024 10:06:59 Influenza, high-dose, trivalent, PF 6 completed Quita Persaudham, RMA null, [facility] 09/20/2024 10:06:59 Influenza, high-dose, trivalent, PF 5 completed Quita Jeffrey, RMA null, [facility] 09/20/2024 10:06:59 zoster live 5 completed Quita uMrphy RMA null, [facility] 09/20/2024 10:06:59 COVID-19, mRNA, LNP-S, PF, 30 mcg/0.3 mL dose 1 completed Quita Murphy RMA null, [facility] 09/20/2024 10:06:59 Influenza, high-dose, trivalent, PF 0 completed Quita Murphy RMA null, [facility] 09/20/2024 10:06:59 Influenza, split virus, quadrivalent, preservative 8 completed Not Available [facility] 04/15/2023 00:38:58 influenza, unspecified formulation 7 completed Not Available [facility] 04/15/2023 00:38:59 Influenza, high-dose, trivalent, PF 4 completed Quita Murphy RMA null, [facility] 09/20/2024 10:06:59 Tdap 4 completed Not Available [facility] 04/15/2023 00:38:59 Influenza, high-dose, trivalent, PF 3 completed Quita Murphy RMA null, [facility] 09/20/2024 10:06:59 pneumococcal polysaccharide PPV23 6 completed Not Available [facility] 04/15/2023 00:38:59 Pneumococcal conjugate PCV 13 8 completed Not Available [facility] 04/15/2023 00:38:59 COVID-19, mRNA, LNP-S, PF, 30 mcg/0.3 mL dose 1 completed Quita Murphy RMA null, [place] [facility] 09/20/2024 10:06:59 COVID-19, mRNA, LNP-S, PF, 30 mcg/0.3 mL dose 1 completed Quita Murphy RMA null, [facility] 09/20/2024 10:06:59 COVID-19, mRNA, LNP-S, PF, 30 mcg/0.3 mL dose, choco-sucrose 2 completed Quita Murphy RMA null, [place] [facility] 09/20/2024 10:06:59 COVID-19, mRNA, LNP-S, bivalent, PF, 30 mcg/0.3 mL dose 3 completed Quita Murphy RMA null, [place] [facility] 09/20/2024 10:06:59 zoster live 5 completed Quita Murphy RMA null, [place] [facility] 09/20/2024 10:06:59 Influenza, high-dose, quadrivalent, PF 3 completed Quita Murphy RMA null, [place] [facility] 08/25/2023 16:37:01 Influenza, high-dose, trivalent, PF 4 completed Quita Murphy RMA null, [facility] 08/12/2024 15:38:39 Past Encounters Encounter ID Performer Location Encounter Start Date Encounter Closed Date Diagnosis/Indication Diagnosis SNOMED-CT Code Diagnosis ICD10 Code Diagnosis Note [id number] [facility] [place] [address] [place] [address] 01/22/2021 00:00:00 01/22/2021 09:57:50 [id number] [facility] [place] [address] [place] [address] y , [place] [address] 05/21/2021 00:00:00 05/23/2021 09:29:04 [id number] [facility] [place] [address] [facility] [address] [place] [address] 08/22/2021 00:00:00 08/22/2021 11:10:38 [id number] [facility] [place] [address] [place] [address] y , [place] [address] 11/19/2021 00:00:00 12/04/2021 10:02:51 [id number] [facility] [place] [address] [place] [address] y , [place] [address] 03/18/2022 00:00:00 03/18/2022 09:32:27 [id number] [facility] Internal [facility] [place] [address] [place] [address] [place] [address] 09/23/2022 00:00:00 09/23/2022 10:12:11 [id number] Amanda moreno MD [facility] Internal [facility] [place] [address] [place] [address] [place] [address] 03/26/2023 08:57:53 03/26/2023 09:50:22 Screening - NAD [id number] Z13.9 C-scope: Dr Estrada 11/13/17, next in 3 years11/04: Dr Estrada: C-scope next in 2 years12/19: Dr Phelps: C-scope, tubular adenomaEGD 06/01/18: Dr Estrada done for anemia Mammogram 12/24/17, Dr Benitez Birads 2 neg 9: Neg 020: Birads 0, get additional views ordered by Dr Monterroso, for R breast US06/01/20 20: Breast bx done, [id number]; Neg 022: Neg pap: Does not do them, sees Dr Forrester DEXA: 07/31/17: Osteopenia , do calcium and vit dDEXA: 09/29/19: Osteopenia , on calcium and vit dDEXA: 05/03/2022 : Low bone mass, on ca and vit d Get yearly flu shotUTD on tdap, shinglesUT D on pneumovax #23 2005, #13 12/11/17UT D on COVID 19 vaccine as per her history RTC in 4 monthsdo labsER if any sx worsenshe verbalized her understand ing of the above Pain of ri ght knee joint 4167259721 04462 M25.561 Does well Did see Dr Degroot, s/p surgery Last OV 08/22/21 Essential hypertension 83925393 I10 ECHO 02/19/2023 : Dr Tomlinson Sees Dr Tomlinson cardiologi stOn valsartan HCTZ 80-12.5mg dailyGet labs Hyperlipidemia 91971348 E78.5 On atorvastat in 40mg dailyGet labs Crohn's disease 13984118 K50.[address] Estrada, he is retiring so will refer to Dr Phelps as per her wishes Does wellS/p C-scope Dr Phelps 12/19/2021 Dr Phelps 06/20/2022 , plan of C-scope in 2023, to continue on the PPI dexilant Anemia 681293961 D64.[address] Monterroso, last 02/18/2022 , next in 6 monthsDr Monterroso 08/13/2022 , f/u in 6 months, bone marrow bx if HGB is less than 9 Malignant tumor of breast 671680069 C50.[address] Monterroso Pain in ri ght hip joint 2449431901 [address] Degroot s/p surgery Did see Arsalan Rachel well Thyroid st imulating hormone level below reference range 768522303 R94.6 S/p US thyroid bx 06/07/2022 US thyroid 12/09/2022 : Next in one year Did see ENT Dr Isai Vasques 06/18/2022 Syncope [id number] R55 OV 08/30/2020 : S/p admission for syncopeDid have a US carotid, and CT scan head, and rib xraysAll were negative as per her historyDoi ng well now Dr Joshi 09/19/2020 : Syncope not cardiac and await the report on the heart monitor, S/p ECHO Needs to see her cardiologi st, she states 09/23/2022 that she works in [place] and will make the apt her self today, referral was given Dr Tomlinson 01/09/2023 : To get a loop recorderDr Amanda Sommers 01/27/2023 : Implantati on of loop recorder Vitamin D deficiency 347 35218 E55.9 Gastroesop hageal reflux disease without esophagitis 365509213 K21.9 S/p EGD 05/15/18 Dr Estrada On dexilantDo es well Increased liver function 76614544 R94.5 Get US liver and labs Ganglion c yst of right hand 4967398770 59960 M67.441 Small non tender cyst noted on the flexor 2nd tendon, 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, she 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, refer to hand surgeon, if any symptoms worsen Pain of le ft knee joint 9719802165 98529 M25.562 Mildly tender medially, mild crepitus, she will notify if she wants to see ortho, can do OTC voltaren gel or tylenol as needed, but not too much d/t her LFTs and Crohns Hypothyroidism 23132033 E03.9 [id number] Weston Degroot MD [facility] [address] 08/07/2023 09:03:38 08/18/2023 11:20:01 Pain of right knee joint 9954731813 20788 M25.561 Tear of me dial meniscus of knee 878837115 S83.241A [id number] Weston Degroot MD [facility] [address] 08/21/2023 14:14:10 08/21/2023 15:31:05 Tear of medial meniscus of knee 333651550 S83.241D [id number] ARTEMIO Ladd [facility] [address] 09/18/2023 10:50:28 09/18/2023 13:04:46 Tear of medial meniscus of knee 821449292 S83.241D [id number] Amanda moreno MD [facility] [address] [facility] [address] 09/22/2023 08:53:42 09/22/2023 09:26:32 Screening - NAD [id number] Z13.9 C-scope: Dr Estrada 11/13/17, next in 3 years11/04: Dr Estrada: C-scope next in 2 years12/19: Dr Phelps: C-scope, tubular adenomaEGD 06/01/18: Dr Estrada done for anemia Mammogram 12/24/17, Dr Benitez Birads 2 neg 9: Neg 020: Birads 0, get additional views ordered by Dr Monterroso, for R breast US06/01/20 20: Breast bx done, [id number]; Neg 022: Neg 023: Neg pap: Does not do them, sees Dr Forrester DEXA: 07/31/17: Osteopenia , do calcium and vit dDEXA: 09/29/19: Osteopenia , on calcium and vit dDEXA: 05/03/2022 : Low bone mass, on ca and vit d Get yearly flu shotUTD on tdap, shinglesUT D on pneumovax #23 2005, #13 12/11/17UT D on COVID 19 vaccine as per her historyCan do RSV vaccine RTC in 6 monthsdo labsER if any sx worsenshe verbalized her understand ing of the above Pain of ri ght knee joint 9722229720 50801 M25.561 Does well Did see Dr Degroot, s/p surgery Arsalan ULLOA 09/18/2023 Essential hypertension 58258751 I10 ECHO 02/19/2023 : Dr Tomlinson Sees Dr Tomlinson cardiologi stOn valsartan HCTZ 80-12.5mg dailyGet labs Hyperlipidemia 41126678 E78.5 On atorvastat in 40mg dailyGet labs Crohn's disease 01857822 K50.[address] Estrada, he is retiring so will refer to Dr Phelps as per her wishes Does wellS/p C-scope Dr Phelps 12/19/2021 Dr Phelps 06/20/2022 , plan of C-scope in 2023, to continue on the PPI dexilant Anemia 918643312 D64.[address] Monterroso, last 02/18/2022 , next in 6 monthsDr Monterroso 08/13/2022 , f/u in 6 months, bone marrow bx if HGB is less than 9 Malignant tumor of breast 168391352 C50.[address] Monterroso Pain in ri ght hip joint 2715569290 [address] Degroot s/p surgery Did see Arsalan ward Thyroid st imulating hormone level below reference range 511842534 R94.6 S/p US thyroid bx 06/07/2022 US thyroid 12/09/2022 : Next in one year Did see ENT Dr Isai Vasques 06/18/2022 Syncope 225305010 R55 OV 08/30/2020 : S/p admission for syncopeDid have a US carotid, and CT scan head, and rib xraysAll were negative as per her historyDoi jesus manuel well now Dr Joshi 09/19/2020 : Syncope not cardiac and await the report on the heart monitor, S/p ECHO Needs to see her cardiologi st, she states 09/23/2022 that she works in [place] and will make the apt her self today, referral was given Dr Tomlinson 01/09/2023 : To get a loop recorderDr Amanda Sommers 01/27/2023 : Implantati on of loop recorder Vitamin D deficiency 347 86186 E55.9 Gastroesop hageal reflux disease without esophagitis 624862491 K21.9 S/p EGD 05/15/18 Dr Estrada On dexilant, take as neededDoes well Increased liver function 86237786 R94.5 US liver: 09/17/2023 : Neg Ganglion c yst of right hand 9578966361 60648 M67.441 Small non tender cyst noted on the flexor 2nd tendon, 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 [place] [address] 03/22/2024 10:57:37 03/22/2024 12:02:05 Adult health examination 637719733 Z00.00 Screening for disorder 023691389 Z13.9 Screening - NAD 58392624 3 Z13.9 C-scope: Dr Estrada 11/13/17, next in 3 years11/04: Dr Estrada: C-scope next in 2 years12/19: Dr Phelps: C-scope, tubular adenomaEGD 06/01/18: Dr Estrada done for anemia Mammogram 12/24/17, Dr Benitez Birads 2 neg 9: Neg 020: Birads 0, get additional views ordered by Dr Monterroso, for R breast US06/01/20 20: Breast bx done, [id number]; Neg 022: Neg 023: Neg pap: Does not do them, sees Dr Forrester DEXA: 07/31/17: Osteopenia , do calcium and vit dDEXA: 09/29/19: Osteopenia , on calcium and vit dDEXA: 05/03/2022 : Low bone mass, on ca and vit d Get yearly flu shotUTD on tdap, shinglesUT D on pneumovax #23 2005, #13 12/11/17UT D on COVID 19 vaccine as per her historyCan do RSV vaccine RTC in 6 monthsdo labsER if any sx worsenshe verbalized her understand ing of the above Pain of ri ght knee joint 9353879580 84401 M25.561 Does well Did see Dr Degroot, s/p surgery Arsalan ULLOA 09/18/2023 Essential hypertension 39284338 I10 ECHO 02/19/2023 : Dr Tomlinson Sees Dr Tomlinson cardiologi st, last OV 10/28/2023 , next in 6 monthsOn valsartan HCTZ 80-12.5mg dailyGet labs Hyperlipidemia 44342084 E78.5 On atorvastat in 40mg dailyGet labs Crohn's disease 69378733 K50.[address] Estrada, he is retiring so will refer to Dr Phelps as per her wishes Does wellS/p C-scope Dr Phelps 12/19/2021 Dr Phelps 06/20/2022 , plan of C-scope in 2023, to continue on the PPI dexilant Anemia 783756817 D64.[address] Monterroso, last 02/18/2022 , next in 6 monthsDr Loc 08/13/2022 , f/u in 6 months, bone marrow bx if HGB is less than 9Dr Loc 12/22/2023 , f/u in one year Malignant tumor of breast 407179233 C50.[address] Monterroso 12/22/2023 , f/u in one year Pain in ri ght hip joint 6525717317 [address] Degroot s/p surgery Did see Arsalan Rachel well Thyroid st imulating hormone level below reference range 357026177 R94.6 S/p US thyroid bx 06/07/2022 US thyroid 12/09/2022 : Next in one year Did see ENT Dr Isai Vasques 06/18/2022 Syncope 902482467 R55 OV 08/30/2020 : S/p admission for syncopeDid have a US carotid, and CT scan head, and rib xraysAll were negative as per her historyDebra ken well now Dr Joshi 09/19/2020 : Syncope not cardiac and await the report on the heart monitor, S/p ECHO Needs to see her cardiologi st, she states 09/23/2022 that she works in [employer] and will make the apt her self today, referral was given Dr Tomlinson 01/09/2023 : To get a loop recorderDr Amanda Sommers 01/27/2023 : Implantati on of loop recorderDr Madelyn 10/2023, f/u in 6 months Vitamin D deficiency 347 55612 E55.9 Gastroesop hageal reflux disease without esophagitis 055530447 K21.9 S/p EGD 05/15/18 Dr Estrada On dexilant, take as neededDoes well Increased liver function 64166212 R94.5 US liver: 09/17/2023 : NegHep panel: 03/17/2024 : Neg Ganglion c yst of right hand 3615025747 37438 M67.441 Small non tender cyst noted on the flexor 2nd tendon, 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, 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, refer to hand surgeon, if any symptoms worsen Pain of le ft knee joint 2461440425 24016 M25.562 Mildly tender medially, mild crepitus, she will notify if she wants to see ortho, can do OTC voltaren gel or tylenol as needed, but not too much d/t her LFTs and Crohns Hypothyroidism 84572495 E03.9 Get labs US thyroid 12/05/2023 : Neg, next in one year Allergic rhinitis 008397 04 J30.9 On flonase Fall W19.XXXA CT pelvis 02/08/2024 : Matthieu ERCT C-spine: 02/08/2024 : negCT brain: 02/08/2024 : neg [id number] PAULINE [place]-D[place] [facility] Primary [facility] [address] [facility] [address] [facility] [place] [address] 09/16/2024 10:05:59 09/16/2024 15:13:10 [id number] Amanda moreno MD [facility] [place] [address] [place] [address] 09/20/2024 09:46:31 09/20/2024 10:39:19 Screening - NAD 451461474 Z13.9 C-scope: Dr Estrada 11/13/17, next in 3 years11/04: Dr Estrada: C-scope next in 2 years12/19: Dr Phelps: C-scope, tubular adenomaEGD 06/01/18: Dr Estrada done for anemia Mammogram 12/24/17, Dr Benitez Birads 2 neg 9: Neg 020: Birads 0, get additional views ordered by Dr Monterroso, for R breast US06/01/20 20: Breast bx done, [id number]; Neg 022: Neg 023: Neg 024: Neg pap: Does not do them, sees Dr Forrester DEXA: 07/31/17: Osteopenia , do calcium and vit dDEXA: 09/29/19: Osteopenia , on calcium and vit dDEXA: 05/03/2022 : Low bone mass, on ca and vit d Get yearly flu shotUTD on tdap, shinglesUT D on pneumovax #23 2005, #13 12/11/17UT D on COVID 19 vaccine as per her historyCan do RSV vaccine RTC in 6 monthsdo labsER if any sx worsenshe verbalized her understand ing of the above Pain of ri ght knee joint 5524398557 70598 M25.561 Does well Did see Dr Degroot, s/p surgery Arsalan ULLOA 09/18/2023 Essential hypertension 28582053 I10 ECHO 02/19/2023 : Dr Tomlinson Sees Dr Tomlinson cardiologi , last OV 10/28/2023 , next in 6 monthsOn valsartan HCTZ 80-12.5mg dailyGet labs Hyperlipidemia 97609486 E78.5 On atorvastat in 40mg dailyGet labs Crohn's disease 36279667 K50.[address] Estrada, he is retiring so will refer to Dr Phelps as per her wishes Does wellS/p C-scope Dr Phelps 12/19/2021 Dr Phelps 06/20/2022 , plan of C-scope in 2023, to continue on the PPI dexilant Anemia 578481090 D64.[address] Monterroso, last 02/18/2022 , next in 6 monthsDr Monterroso 08/13/2022 , f/u in 6 months, bone marrow bx if HGB is less than 9Dr Loc 12/22/2023 , f/u in one year Malignant tumor of breast 149538757 C50.[address] Monterroso 12/22/2023 , f/u in one year Pain in ri ght hip joint 0152642164 [address] Degroot s/p surgery Did see Arsalan Rachel well Thyroid st imulating hormone level below reference range 888720726 R94.6 S/p US thyroid bx 06/07/2022 US thyroid 12/09/2022 : Next in one yearUS thyroid , next in one year Did see ENT Dr Isai Vasques 06/18/2022 Syncope 098255577 R55 OV 08/30/2020 : S/p admission for syncopeDid have a US carotid, and CT scan head, and rib xraysAll were negative as per her historyDoi ng well now Dr Joshi 09/19/2020 : Syncope not cardiac and await the report on the heart monitor, S/p ECHO Needs to see her cardiologi st, she states 09/23/2022 that she works in [place] and will make the apt her self today, referral was given Dr Tomlinson 01/09/2023 : To get a loop recorderDr Amanda Sommers 01/27/2023 : Implantati on of loop recorderDr Joshi 10/2023, f/u in 6 monthsDr Joshi 04/16/2024 , f/u in 6 months Vitamin D deficiency 347 98270 E55.9 Gastroesop hageal reflux disease without esophagitis 170995148 K21.9 S/p EGD 05/15/18 Dr Estrada On dexilant, take as neededDoes well Increased liver function 89504645 R94.5 US liver: 09/17/2023 : NegHep panel: 03/17/2024 : NegGGT: 09/16/2024 : Neg Ganglion c yst of right hand 9321575732 04361 M67.441 Small non tender cyst noted on the flexor 2nd tendon, 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, 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, 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 to 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 surgeon, if any symptoms worsen Pain of le ft knee joint 1752373771 90279 M25.562 Mildly tender medially, mild crepitus, she will notify if she wants to see ortho, can do OTC voltaren gel or tylenol as needed, but not too much d/t her LFTs and Crohns Hypothyroidism 83347319 E03.9 Get labs US thyroid 12/05/2023 : Neg, next in one year Allergic rhinitis 800657 04 J30.9 On flonase Fall W19.XXXA CT pelvis 02/08/2024 : Matthieu ERCT C-spine: 02/08/2024 : negCT brain: 02/08/2024 : neg [id number] Amanda moreno MD [facility] [address] [facility] [address] [facility] [place] [address] 01/12/2025 11:17:30 01/12/2025 12:06:48 Screening - NAD 391130990 Z13.9 C-scope: Dr Estrada 11/13/17, next in 3 years11/04: Dr Estrada: C-scope next in 2 years12/19: Dr Phelps: C-scope, tubular adenomaEGD 06/01/18: Dr Estrada done for anemia Mammogram 12/24/17, Dr Benitez Birads 2 neg 9: Neg 020: Birads 0, get additional views ordered by Dr Monterroso, for R breast US06/01/20 20: Breast bx done, [id number]; Neg 022: Neg 023: Neg 024: Neg pap: Does not do them, sees Dr Forrester DEXA: 07/31/17: Osteopenia , do calcium and vit dDEXA: 09/29/19: Osteopenia , on calcium and vit dDEXA: 05/03/2022 : Low bone mass, on ca and vit d Get yearly flu shotUTD on tdap, shinglesUT D on pneumovax #23 2005, #13 12/11/17UT D on COVID 19 vaccine as per her historyCan do RSV vaccine RTC in 4 monthsdo labsER if any sx worsenshe verbalized her understand ing of the above Pain of ri ght knee joint 1293159495 97287 M25.561 Does well Did see Dr Degroot, s/p surgery Arsalan Jimenez PA 09/18/2023 Essential hypertension 89107014 I10 ECHO 02/19/2023 : Dr Tomlinson Sees Dr Tomlinson cardiologi st, last OV 10/28/2023 , next in 6 monthsOn valsartan HCTZ 80-12.5mg dailyGet labs Hyperlipidemia 70197473 E78.5 On atorvastat in 40mg dailyGet labs Crohn's disease 72563319 K50.[address] Estrada, he is retiring so will refer to Dr Phelps as per her wishes Does wellS/p C-scope Dr Phelps 12/19/2021 Dr Phelps 06/20/2022 , plan of C-scope in 2023, to continue on the PPI dexilant Anemia 229625993 D64.[address] Monterroso, last 02/18/2022 , next in 6 monthsDr Loc 08/13/2022 , f/u in 6 months, bone marrow bx if HGB is less than 9Dr Loc 12/22/2023 , f/u in one year Malignant tumor of breast 785482746 C50.[address] Monterroso Pain in ri ght hip joint 3112538169 [address] Degroot s/p surgery Did see Arsalan Rachel well Thyroid st imulating hormone level below reference range 527588941 R94.6 Not on any medsNeeds to see ENT 01/12/2025 Syncope 307424112 R55 OV 08/30/2020 : S/p admission for syncopeDid have a US carotid, and CT scan head, and rib xraysAll were negative as per her historyDoi jesus manuel well now Dr Joshi 09/19/2020 : Syncope not cardiac and await the report on the heart monitor, S/p ECHO Needs to see her cardiologi st, she states 09/23/2022 that she works in [place] and will make the apt her self today, referral was given Dr Tomlinson 01/09/2023 : To get a loop recorderDr Amanda Sommers 01/27/2023 : Implantati on of loop recorderDr Joshi 10/2023, f/u in 6 monthsDr Madelyn 04/16/2024 , f/u in 6 monthsDr Madelyn's FINANCIAL SERVICES ASSOCIATE Alea Parada 10/04/2024 , next in 6-9 months Vitamin D deficiency 347 46181 E55.9 Gastroesop hageal reflux disease without esophagitis 524259171 K21.9 S/p EGD 05/15/18 Dr Estrada On dexilant, take as neededDoes well Increased liver function 48371253 R94.5 US liver: 09/17/2023 : NegHep panel: 03/17/2024 : NegGGT: 09/16/2024 : Neg Ganglion c yst of right hand 5648807143 11052 M67.441 Small non tender cyst noted on the flexor 2nd tendon, 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, 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, refer to hand surgeon, if any symptoms worsen Pain of le ft knee joint 5919210619 40369 M25.562 Mildly tender medially, mild crepitus, she will notify if she wants to see ortho, can do OTC voltaren gel or tylenol as needed, but not too much d/t her LFTs and Crohns Allergic rhinitis 564648 04 J30.9 On flonase Fall W19.XXXA CT pelvis 02/08/2024 : Matthieu ERCT C-spine: 02/08/2024 : negCT brain: 02/08/2024 : neg Chronic ki dney disease 055370890 N18.9 12/20/2024 : BUN 23, GFR 54Has declined a referral 01/12/2025 , get labs Thyroid nodule 975525882 E04.1 Not on any meds S/p US thyroid bx 06/07/2022 US thyroid 12/09/2022 : Next in one yearUS thyroid , next in one year Did see ENT Dr Isai Vasques 06/18/2022 OV 01/12/2025 :US thyroid 11/15/2024 : Consider repeat Bx for the R thyroid noduleRefe rred to ENT Screening for osteoporosis 793608713 Z13.820 Health Concerns Section Related Observation LastModified by Organization Detai ls LastModified Time None Recorded Concern Status LastModified by Organization Details LastModified Time None Recorded Advance Directives Directive Y: Payers Encounter Date Sequence Insurance Name Policy Number Policy Orozco Covered Member ID Orozco Member ID Guarantor Name 09/22/2023 1 [employer] (MEDICARE REPLACEMENT PPO) [id number] Rosaura Snhea Devany [id number] Rosaura Devany 03/22/2024 1 [employer] (MEDICARE REPLACEMENT PPO) [id number] Rosaura G Devany [id number] Rosaura Devany 09/16/2024 1 [employer] (MEDICARE REPLACEMENT PPO) [id number] Rosaura G Devany [id number] Rosaura Devany 09/20/2024 1 [employer] (MEDICARE REPLACEMENT PPO) [id number] Rosaura G Devany [id number] Rosaura Devany 01/12/2025 1 [employer] (MEDICARE REPLACEMENT PPO) [id number] Rosaura G Devany [id number] Rosaura Devany Notes Date Note Type Note Provider Name and Address Organization Details Recorded Time 09/22/2023 text/html Here to rubia Tompkins Hx:HLDGERDHTNChrons DzBreast Ca 17 years ago L breastReviewed social family and surgical historyHas had some LBP, states that she 'woke up' with it and feels that she is contispated, and a laxative may help. No N/T in legs, no leg weakness feels that her hip needs to be replaced but wants to hold on to this yet d/t her husbands illness, this is on the R hip.Has seen Dr Rodrigez and will connect with him at her convienance OV 12/15/17:Here for her routine aptHere to discuss the labs did them of 12/11/17 OV 02/02/18:ACV:Here with sinus and nasal congestion since a week+ve cough, greenish sputum no blood+ve sinus headachesNo fevers or chillsNo N/V or diarrheaNo chest pain or SOBHas a mild ear ache on the L ear, no ear d/c No rashNo joint swelling OV 04/13/18:Here for her routine apt She states that she is doing well at this timeShe did do the labs on 04/09/18 and is here to review these OV 10/12/18:Here for her routine aptShe states that she is doing well at this timeSe did do the labs on 09/30/18 OV 04/12/19:Here for her routine aptShe feels well, she did do the labs on 04/07/19She is also here for her MWV OV 09/01/19:Here for her ACVC/o diarrhea since 10 days, was seen in [facility] ER [facility] and she did have a CT abd/pelvis and fluids as per historyShe now has diarrhea, clear, non bloody, some chris lower quadrant abdominal painNo nausea or vomiting OV 10/11/19:Here for her routine aptShe is doing well at this timeShe did do the labs and is here to reveiw these, she states that her diarrhea has resolved OV 05/01/2020;Here for her routine aptShe states that she is doing well and she did do the labsShe also has seen Dr Monterroso and has done his labsShe is to now get RTHR and US breast done OV 07/18/2020:Here for ACV:C/o R knee painPain is sharp, able to weight bear, no acute or remote traumaShe feels that there is swelling notedShe also has seen Dr Rodrigez, but he does not want to do the R THR as she has CKD, she is eager to get a 2nd opinion OV 08/30/2020:Here for tele visit and is agreeable [place], got observed, got fluids, and then d/c on Sundayshe is doing very wellShe quit the oxycodone that was given to her by the surgeon and this has helpedShe is also s/p knee surgery OV 09/25/2020:Here for her routine aptShe feels very well She did see ortho s/p surgery and is to see ortho in 4 weeks againShe has not done any new labs OV 01/22/2021:Here for her routine aptShe feels wellShe did do the labs on 10/19/2020 OV 11/19/2020:Here for her routine aptShe is doing wellShe is also here for her MWVShe did do the labs on 11/16/2020 OV 03/18/2022:Here for her routine aptShe is feeling wellNo recent labs OV 09/23/2022:Here for her f/u apt, she is doing very well, she did do the labs OV 03/26/2023:Here for her f/u apt, she is doing well, done the labs, she did see Dr Larios and has had a loop recorder inserted on 01/27/2023 OV 09/22/2023: Here for her routine f/u apt, she is doing well today Amanda Ball MD [address] [facility], [facility] [address], [place], [address], [place] - [facility] [email or web address] 09/22/2023 09:30:35 03/22/2024 text/html Here to rubia Tompkins Hx:Veronika Azar Ca 17 years ago L breastReviewed social family and surgical historyHas had some LBP, states that she 'woke up' with it and feels that she is contispated, and a laxative may help. No N/T in legs, no leg weakness feels that her hip needs to be replaced but wants to hold on to this yet d/t her husbands illness, this is on the R hip.Has seen Dr Rodrigez and will connect with him at her convienance OV 12/15/17:Here for her routine aptHere to discuss the labs did them of 12/11/17 OV 02/02/18:ACV:Here with sinus and nasal congestion since a week+ve cough, greenish sputum no blood+ve sinus headachesNo fevers or chillsNo N/V or diarrheaNo chest pain or SOBHas a mild ear ache on the L ear, no ear d/c No rashNo joint swelling OV 04/13/18:Here for her routine apt She states that she is doing well at this timeShe did do the labs on 04/09/18 and is here to review these OV 10/12/18:Here for her routine aptShe states that she is doing well at this timeSe did do the labs on 09/30/18 OV 04/12/19:Here for her routine aptShe feels well, she did do the labs on 04/07/19She is also here for her MWV OV 09/01/19:Here for her ACVC/o diarrhea since 10 days, was seen in the ER at [facility] and she did have a CT abd/pelvis and fluids as per historyShe now has diarrhea, clear, non bloody, some chris lower quadrant abdominal painNo nausea or vomiting OV 10/11/19:Here for her routine aptShe is doing well at this timeShe did do the labs and is here to reveiw these, she states that her diarrhea has resolved OV 05/01/2020;Here for her routine aptShe states that she is doing well and she did do the labsShe also has seen Dr Monterroso and has done his labsShe is to now get RTHR and US breast done OV 07/18/2020:Here for ACV:C/o R knee painPain is sharp, able to weight bear, no acute or remote traumaShe feels that there is swelling notedShe also has seen Dr Rodrigez, but he does not want to do the R THR as she has CKD, she is eager to get a 2nd opinion OV 08/30/2020:Here for tele visit and is agreeable to [facility] [place] [facility] [place] for [facility], got observed, got fluids, and then d/c on Sundayshe is doing very wellShe quit the oxycodone that was given to her by the surgeon and this has helpedShe is also s/p knee surgery OV 09/25/2020:Here for her routine aptShe feels very well She did see ortho s/p surgery and is to see ortho in 4 weeks againShe has not done any new labs OV 01/22/2021:Here for her routine aptShe feels wellShe did do the labs on 10/19/2020 OV 11/19/2020:Here for her routine aptShe is doing wellShe is also here for her MWVShe did do the labs on 11/16/2020 OV 03/18/2022:Here for her routine aptShe is feeling wellNo recent labs OV 09/23/2022:Here for her f/u apt, she is doing very well, she did do the labs OV 03/26/2023:Here for her f/u apt, she is doing well, done the labs, she did see Dr Larios and has had a loop recorder inserted on 01/27/2023 OV 09/22/2023: Here for her routine f/u apt, she is doing well today OV 03/22/2024: Here for her f/u apt, she is doing well today, she is here for her MWV also, s/p fall from a trip and she was seen in the ER and did have various CT scans, is doing well today Amanda Ball MD [address] [facility], [facility] [address], [place], [address], [place] [email or web address] 03/22/2024 17:57:49 09/20/2024 text/html Here to rubia Tompkins Hx:HLDGERDHTNChrons DzBreast Ca 17 years ago L breastReviewed social family and surgical historyHas had some LBP, states that she 'woke up' with it and feels that she is contispated, and a laxative may help. No N/T in legs, no leg weakness feels that her hip needs to be replaced but wants to hold on to this yet d/t her husbands illness, this is on the R hip.Has seen Dr Rodrigez and will connect with him at her convienance OV 12/15/17:Here for her routine aptHere to discuss the labs did them of 12/11/17 OV 02/02/18:ACV:Here with sinus and nasal congestion since a week+ve cough, greenish sputum no blood+ve sinus headachesNo fevers or chillsNo N/V or diarrheaNo chest pain or SOBHas a mild ear ache on the L ear, no ear d/c No rashNo joint swelling OV 04/13/18:Here for her routine apt She states that she is doing well at this timeShe did do the labs on 04/09/18 and is here to review these OV 10/12/18:Here for her routine aptShe states that she is doing well at this timeSe did do the labs on 09/30/18 OV 04/12/19:Here for her routine aptShe feels well, she did do the labs on 04/07/19She is also here for her MWV OV 09/01/19:Here for her ACVC/o diarrhea since 10 days, was seen in the ER at [facility] and she did have a CT abd/pelvis and fluids as per historyShe now has diarrhea, clear, non bloody, some chris lower quadrant abdominal painNo nausea or vomiting OV 10/11/19:Here for her routine aptShe is doing well at this timeShe did do the labs and is here to reveiw these, she states that her diarrhea has resolved OV 05/01/2020;Here for her routine aptShe states that she is doing well and she did do the labsShe also has seen Dr Monterroso and has done his labsShe is to now get RTHR and US breast done OV 07/18/2020:Here for ACV:C/o R knee painPain is sharp, able to weight bear, no acute or remote traumaShe feels that there is swelling notedShe also has seen Dr Rodrigez, but he does not want to do the R THR as she has CKD, she is eager to get a 2nd opinion OV 08/30/2020:Here for tele visit and is agreeable to do this [place]S[facility] [facility] [place] for sync[place], got observed, got fluids, and then d/c on Sundayshe is doing very wellShe quit the oxycodone that was given to her by the surgeon and this has helpedShe is also s/p knee surgery OV 09/25/2020:Here for her routine aptShe feels very well She did see ortho s/p surgery and is to see ortho in 4 weeks againShe has not done any new labs OV 01/22/2021:Here for her routine aptShe feels wellShe did do the labs on 10/19/2020 OV 11/19/2020:Here for her routine aptShe is doing wellShe is also here for her MWVShe did do the labs on 11/16/2020 OV 03/18/2022:Here for her routine aptShe is feeling wellNo recent labs OV 09/23/2022:Here for her f/u apt, she is doing very well, she did do the labs OV 03/26/2023:Here for her f/u apt, she is doing well, done the labs, she did see Dr Larios and has had a loop recorder inserted on 01/27/2023 OV 09/22/2023: Here for her routine f/u apt, she is doing well today OV 03/22/2024: Here for her f/u apt, she is doing well today, she is here for her MWV also, s/p fall from a trip and she was seen in the ER and did have various CT scans, is doing well today OV 09/20/2024: Here for her f/u apt, she is doing well today Amanda Ball MD [address] [facility], [address], [place], [address], [place] - [place] [employer] 09/20/2024 16:37:45 01/12/2025 text/html Here to rubia Tompkins Hx:Veronika Azar Ca 17 years ago L breastReviewed social family and surgical historyHas had some LBP, states that she 'woke up' with it and feels that she is contispated, and a laxative may help. No N/T in legs, no leg weakness feels that her hip needs to be replaced but wants to hold on to this yet d/t her husbands illness, this is on the R hip.Has seen Dr Rodrigez and will connect with him at her convienance OV 12/15/17:Here for her routine aptHere to discuss the labs did them of 12/11/17 OV 02/02/18:ACV:Here with sinus and nasal congestion since a week+ve cough, greenish sputum no blood+ve sinus headachesNo fevers or chillsNo N/V or diarrheaNo chest pain or SOBHas a mild ear ache on the L ear, no ear d/cNo rashNo joint swelling OV 04/13/18:Here for her routine aptShe states that she is doing well at this timeShe did do the labs on 04/09/18 and is here to review these OV 10/12/18:Here for her routine aptShe states that she is doing well at this timeSe did do the labs on 09/30/18 OV 04/12/19:Here for her routine aptShe feels well, she did do the labs on 04/07/19She is also here for her MWV OV 09/01/19:Here for her ACVC/o diarrhea since 10 days, was seen in the ER at [facility] and she did have a CT abd/pelvis and fluids as per historyShsimon now has diarrhea, clear, non bloody, some chris lower quadrant abdominal painNo nausea or vomiting OV 10/11/19:Here for her routine aptShe is doing well at this timeShe did do the labs and is here to reveiw these, she states that her diarrhea has resolved OV 05/01/2020;Here for her routine aptShe states that she is doing well and she did do the labsShe also has seen Dr Monterroso and has done his labsShe is to now get RTHR and US breast done OV 07/18/2020:Here for ACV:C/o R knee painPain is sharp, able to weight bear, no acute or remote traumaShe feels that there is swelling notedShe also has seen Dr Rodrigez, but he does not want to do the R THR as she has CKD, she is eager to get a 2nd opinion OV 08/30/2020:Here for tele visit and is agreeable to do this [place]S[facility] [facility] [place] for sync[place], got observed, got fluids, and then d/c on Sundayshe is doing very wellShe quit the oxycodone that was given to her by the surgeon and this has helpedShe is also s/p knee surgery OV 09/25/2020:Here for her routine aptShe feels very well She did see ortho s/p surgery and is to see ortho in 4 weeks againShe has not done any new labs OV 01/22/2021:Here for her routine aptShe feels wellShe did do the labs on 10/19/2020 OV 11/19/2020:Here for her routine aptShe is doing wellShe is also here for her MWVShe did do the labs on 11/16/2020 OV 03/18/2022:Here for her routine aptShe is feeling wellNo recent labs OV 09/23/2022:Here for her f/u apt, she is doing very well, she did do the labs OV 03/26/2023:Here for her f/u apt, she is doing well, done the labs, she did see Dr Larios and has had a loop recorder inserted on 01/27/2023 OV 09/22/2023: Here for her routine f/u apt, she is doing well today OV 03/22/2024: Here for her f/u apt, she is doing well today, she is here for her MWV also, s/p fall from a trip and she was seen in the ER and did have various CT scans, is doing well today OV 09/20/2024: Here for her f/u apt, she is doing well today OV 01/12/2025: Here for her routine apt, she is doing well today, she did do the labs with Dr Loc Ball MD [address] [place] [address], [address], [place], [address], [facility] 01/31/2025 14:22:31 OBGyn Episode No OBEpisode recorded.
--- OUTSIDE RECORDS SUMMARY | 2025-02-25 13:22 | XMS_ITS | Clinical Summary ---
Author Organization [facility] Address [address] [facility], [facility] [address] [place] [address] Phone Care Team Providers Care Director Digital Marketing Name Role Phone Gabriella Hein APRN, CLINICAL PROJECT MANAGER Unavailable [phone] Nitin Estrada DO Unavailable [phone] Amanda Ball MD Primary Care Provider [...] Health Maintenance Due Date Last Done Comments Hepatitis C Virus (HCV) Screening 1945 Mammogram [...] Maintenance Results * COLONOSCOPY (11/04/2019) us Nitin Estrada DO PROCEDURE/MINOR SURGICAL ORDERA BLES Final Result from Last 3 Months or Most Recently Relevant to Health Maintenance Care Teams Director Digital Marketing Relationship Specialty Start Date End Date Amanda Ball MD [address] [place] [address] PCP - General Internal Medicine 11/14/17 Gabriella Hein, COIN COUNTER AND WRAPPER, CLINICAL PROJECT MANAGER Nurse Practitioner Advanced Practice Nurse 09/05/16 Nitin Estrada DO Gastroenterology 11/14/17
[2025-02-25 13:38] LABS: Basophils Percent Auto 0.3 % (0.2-1.2); Eosinophils Absolute Auto 0.1 K/mm3 (0-0.3); Eosinophils Percent Auto 1.5 % (0-4.4); Hematocrit 32.7 % (37.0-47.0); Hemoglobin 10.8 g/dL (12.0-15.0); Immature Granulocyte Absolute 0.02 K/mm3 (0.00-0.031); Immature Granulocyte Percent A 0.3 % (0-0.5); Lymphocytes Absolute Auto 1.38 K/mm3 (0.9-3.2); Lymphocytes Percent Auto 23.1 % (18.3-44.2); Mean Platelet Volume 9.1 fl (7.4-10.4); Monocytes Absolute Auto 0.5 K/mm3 (0.1-0.6); Monocytes Percent Auto 8.2 % (2.6-8.5); Neutrophils Percent Auto 66.6 % (45.5-73.1); Platelet Count Result 251 k/mm3 (150-375); Red Blood Count 3.48 M/mm3 (4.2-5.4); Red Cell Distribution Width 12.6 % (11.5-14.5)
[2025-02-25 13:41] LABS: Blood Urea Nitrogen 22 mg/dL (8-26); Carbon Dioxide 23 mmol/L (22-30); Chloride 103 mmol/L (98-109); Estimated Glomerular Filt Rate 43; Glucose 126 mg/dL (70-105); Ionized Calcium (POC) 1.11 mmol/L (1.11-1.31); Potassium 3.4 mmol/L (3.5-4.9); Sodium 140 mmol/L (138-146)
[2025-02-25 15:02] LABS: Alanine Aminotransferase 27 U/L (6-35); Albumin Level 4.3 g/dL (3.5-5.1); Alkaline Phosphatase 106 U/L (38-126); Anion Gap 11 mmol/L (4-12); Aspartate Amino Transferase 28 U/L (14-36); Bilirubin,Total 0.3 mg/dL (0.2-1.3); Blood Urea Nitrogen 23 mg/dL (7-17); Calcium 8.9 mg/dL (8.4-10.2); Carbon Dioxide 24 mmol/L (22-30); Chloride 103 mmol/L (98-107); Estimated Glomerular Filt Rate 47; Glucose 126 mg/dL (65-110); Potassium 3.5 mmol/L (3.4-5.0); Sodium 138 mmol/L (137-145)
== END 2025-02-25 13:20 | disposition home or self-care (01) ==
LOC: ANHLAB 13:20
PROVIDERS: PCP Internal Medicine; Visit Provider Internal Medicine Hematology & Oncology
DX: D64.9 Anemia, unspecified (principal)
CPT/HCPCS: 36415; 80047; 80053; 85025

== ENCOUNTER 2025-04-12 10:12 | Outpatient (CLI) | payer MEDICARE, SELFPAY ==
--- NOTE | ~2025-04-12 | DEXA_ITS ---
Bone Density Report Name: JENNIFER ODONNELL Age: 79 Sex: Female Ethnicity: White Date of : 1945 Indication: postmenopausal; screening for osteoporosis; parental hip fracture; height loss; history of glucocorticoids; Referring Provider: Lizzy, Amanda Study: Bone densitometry was performed. Exam Date: April 12, 2025 Accession number: [id number] Bone Density: Region BMD T-score Z-score Classification AP Spine(L1-L4) 1.061 0.1 2.8 Normal Femoral Neck (Left) 0.665 -1.7 0.7 Osteopenia Total Hip (Left) 0.813 -1.1 1.0 Osteopenia World Health Organization criteria for BMD impression classify patients as: Normal (T-score at or above -1.0), Osteopenia (T-score between -1.0 and -2.5), or Osteoporosis (T-score at or below -2.5). 10-year Fracture Risk(1): Major Osteoporotic Fracture 36% Hip Fracture 23% Reported Risk Factors: [place] (), Neck BMD=0.665, BMI=28.3, parental fracture, glucocorticoids (1) FRAX(R) Version 3.08. Fracture probability calculated for an untreated patient. Fracture probability may be lower if the patient has received treatment. Previous Exams: -- Region Exam Age BMD T-score BMD Change BMD Change Date g/cm2 vs Baseline vs Previous -- AP Spine (L1-L4) 04/12/2025 79 1.061 0.1 7.3%# 7.3%# 07/01/2012 66 0.989 -0.5 Total Hip(Left) 04/12/2025 79 0.813 -1.1 -6.0%# -6.0%# 07/01/2012 66 0.865 -0.6 -- *Denotes significance at 95% confidence level, LSC for AP Spine = 0.022 g/cm2, LSC for Total Hip = 0.027 g/cm2 # Denotes dissimilar scan types or analysis methods Clinical Information Provided by Patient: Parent has had a hip fracture Has taken Glucocorticoids Has used the following medications: Fosamax (i.e. alendronate), HRT (i.e. estrogen/hormone therapy), Vitamin D, Calcium Patient maximum height was 64 Drinks caffeinated beverages Onset of menses at age 11 Number of children 2 Impression: The patient has low bone mass, based on the Left Femoral Neck T-score. The patient has an estimated ten-year risk of hip fracture of 23% and an estimated ten-year risk of major fracture of 36%, based on the WHO FRAX algorithm. The patient has risk factors, including: parental hip fracture, history of glucocorticoid therapy. Unable to evaluate interval change due to the use of different scan modes. Discussion: BONE DENSITY IS LOW AT ONE OR MORE SKELETAL SITES. THE PATIENT'S BMD AND CLINICAL RISK FACTORS CONTRIBUTE TO THIS PATIENT'S HIGH RISK OF FRACTURE. This patient's lowest T-score is low at one or more skeletal sites. It meets the World Health Organization's (WHO) criteria for ?low bone mass? (T-score between -1.0 and -2.5). The patient's 10-year risk of hip fracture and 10 year risk of a major osteoporotic fracture as calculated by FRAX exceeds the threshold where pharmacological therapy is recommended by the National Osteoporosis Foundation (NOF). However, all treatment decisions require clinical judgment and consideration of individual patient factors, including patient preferences, comorbidities, previous drug use, risk factors not captured in the FRAX model (e.g., frailty, falls, vitamin D deficiency, increased bone turnover, interval significant decline in bone density) and possible under or overestimation of fracture risk by FRAX. The patient should follow a healthful lifestyle (good nutrition with adequate calcium and vitamin D, and appropriate weight-bearing exercise). Follow-Up: Consider a repeat BMD and Vertebral Fracture Assessment (VFA) exam in 2 years or sooner if medically necessary, to reassess this patient's status. Reported by: RAMON on 04/12/2025 10:31:00 AM. Reviewed, dictated and finalized at location A.
== END 2025-04-12 10:13 | disposition home or self-care (01) ==
LOC: MICIMG 10:13
PROVIDERS: PCP Internal Medicine; Visit Provider Internal Medicine
DX: M85.89 Other specified disorders of bone density and structure, multiple sites (principal); Z78.0 Asymptomatic menopausal state
CPT/HCPCS: 77080

== ENCOUNTER 2025-06-14 07:55 | Outpatient (CLI) | payer MEDICARE, SELFPAY ==
--- OUTSIDE RECORDS SUMMARY | 2025-06-14 07:59 | XMS_ITS | Clinical Summary ---
Author Organization [facility] Address [address] [facility] [place] [address] Care Team Providers Care Federal Judicial Law Clerk Name Role Phone Amanda Ball MD Primary Care Provider Allergies Active Allergy Reactions Criticality Noted Date Comments Adhesive Rash Low Codeine Swelling,Angioedema High 05/21/2012 Swelling around eyes Swelling around eyes, Swelling around eyes, Swelling around eyes Swelling around eyes, Swelling around eyes, Swelling around eyes face Swelling around eyes Swelling around eyes, Swelling around eyes, Swelling around eyes Other reaction(s): Facial Swelling Hkubkurq-Lmhjekiski-B olymyxin Rash Medium 05/21/2012 Neomycin-Bacitracnzn- Polymyxnb Rash Low 09/05/2016 Medications Glucosamine-Chondr oit-Vit C-Mn [phone] mg Tablet 2 times daily. Activ e fluticasone (FLONASE) 50 mcg/spray [place], Suspension Administer 1 [place] in each nostril 1 time daily as [...] Encounters Date Type Department Care Team Description 06/08/2025 External Device Data [facility] ABSTRACTION Provider, Abstract 05/18/2025 External Device Data [facility] ABSTRACTION Provider, Abstract 05/18/2025 External Device Data [facility] ABSTRACTION Provider, Abstract 05/18/2025 External Device Data ST[facility] ABSTRACTION Provider, Abstract 04/20/2025 External Device Data [facility] ABSTRACTION Provider, Abstract 04/19/2025 External Device Data [facility] ABSTRACTION Provider, Abstract 03/29/2025 External Device Data [facility] ABSTRACTION Provider, Abstract 03/23/2025 External Device Data [facility] ABSTRACTION Provider, Abstract 03/22/2025 External Device Data ST[facility] ABSTRACTION Provider, Abstract [...] Sign Reading Time Taken Comments Blood Pressure 125/71 02/25/2025 1:37 PM CDT Pulse 91 02/25/2025 1:37 PM CDT Temperature 36.7 C (98 F) 02/25/2025 1:37 PM CDT Respiratory Rate 16 02/25/2025 1:37 PM CDT Oxygen Saturation 94% 02/25/2025 1:37 PM CDT Inhaled Oxygen Concentration - - Weight 69.4 kg (153 lb) 02/25/2025 1:37 PM CDT Height 157.5 cm (5' 2) 08/13/2022 10:58 AM CDT Body Mass Index 27.98 08/13/2022 10:58 AM CDT Plan of Treatment Upcoming Encounters Date Type Department Care Team (Late st Contact Info) Description 02/27/2026 10:00 AM CDT Office Visit [facility] Oncology and Hematology - [place] [address] [facility] [address] [place] [address] Clifton Monterroso MD [address] [facility] [address] [place] [address] Health Maintenance Due Date Last Done Comments OSTEOPOROSIS SCREENING 2009 ZOSTER VACCINE (2 of 3) 10/05/2015 08/10/2015, 08/09 RSV VACCINE (60+ or ) (1 - 1-dose 75+ series) 2019 PNEUMOCOCCAL VACCINE 50+ YEA RS (3 of 3 - PCV20 or PCV21) 12/15/2022 12/15/2017, 09/18/2006 COVID-19 Vaccine (2023-2 5 season) 2024 09/12/2023, 12/19/2022, 05/31/2022, Additional history exists DTAP/TDAP/TD VACCINES (2 - T d or Tdap) 09/06/2024 09/06/2014 INFLUENZA VACCINE (#1) 2025 4, 08/25/2023, 08/18/2022, Additional history exists COLORECTAL SCREENING Discontinued 11/04/2019, 11/03/19 20 Colorectal Cancer Screening Discontinued FIT-DNA Q 3 years Discontinued FIT/FOBT Q 1 year Discontinued Flex Sig/CT Colonography Q 5 years Discontinued Insurance [employer] PPO [facility] Care Teams Federal Judicial Law Clerk Relationship Specialty Start Date End Date Amanda Ball MD PCP - General Internal Medicine 04/30/18
--- OUTSIDE RECORDS SUMMARY | 2025-06-14 07:59 | XMS_ITS | Encounter Summary ---
Author Organization [facility] Address [address] [place] [address] Care Team Providers Care Wood Patternmaker Apprentice Name Role Phone Taryn Ball MD Primary Care Provide r Encounter Details Date Type Department Care Team (Late st Contact Info) Description 05/13/2025 Results Follow-Up [facility] Cardiology [address] [place] [phone] [place] [address] [place] [address] [address] [facility] [place] [id number] [place], [place] [id number] [place] Carotids Duplex Bilateral Social History Tobacco Use Types Packs/Day Years Used Date Smoking Tobacco: Never Smokeless Tobacco: Never Comments Unknown Sex and Gender Information Value Date Recorded Sex Assigned at Not on file Legal Sex Female 4:11 PM MANAGER VEHICLE Gender Identity Female 03/01/2025 7:05 PM CDT Sexual Orientation Straight 03/01/2025 7: 05 PM CDT documented as of this encounter Plan of Treatment Not on file documented as of this encounter Visit Diagnoses Not on filedocumented in this encounter Care Teams Wood Patternmaker Apprentice Relationship Specialty Start Date End Date Taryn Ball MD [address] [facility] [address] [place] [address] PCP - General Internal Medicine 07/31/20 documented as of this encounter
--- OUTSIDE RECORDS SUMMARY | 2025-06-14 07:59 | XMS_ITS | Clinical Summary ---
Author Organization [facility] Address [address] [place] [phone] Care Team Providers Care Mine Captain Name Role Phone Taryn Ball MD Primary Care Provide r Allergies Active Allergy Reactions Criticality Noted Date Comments Codeine Swelling,Angioedema High 05/21/2012 Swelling around eyes, Swelling around eyes, Swelling around eyes face Swelling around eyes Swelling around eyes, Swelling around eyes, Swelling around eyes Other reaction(s): Facial Swelling Zljixkim-Bcwaphlljl-Y olymyxin Rash Medium 05/21/2012 Medications valsartan-hydro CHLOROthiazide [...] Active Problems Problem Noted Date Diagnosed Date Left carotid bruit 04/27/2025 Status post placement of implantable loop record er 01/28/2023 Overview (01/28/2023): Medtronic LNQ22 Loop Recorder. Dx; Syncope, Palpitations. DOI 01/27/2023- Fleissner. Ralph remote monitoring. Mitral valve disorder 01/09/2023 Recurrent syncope 09/19/2020 Palpitations 07/31/2020 Hyperlipidemia LDL goal <100 07/31/2020 Essential hypertension 07/31/2020 Pre-op examination 07/31/2020 RBBB 07/31/2020 Encounters Date Type Department Care Team Description 05/13/2025 Results Follow-Up [facility] [address] [place] [address] [place] [phone] Elvira Hand MD US Carotids Duplex Bilateral 05/12/2025 2:00 PM CDT Ancillary Procedure [facility] Vascular and Vein Surgery at [address] [place] [phone] Left carotid bruit 05/09/2025 7:30 AM CDT Ancillary Procedure [facility] [address] [place] [address] [place] [phone] Palpitations (Primary Dx); Status post placement of implantable loop recorder; Recurrent syncope 04/27/2025 2:00 PM CDT Office Visit [facility] [address] [facility] [address] [place] [address] Elvira Hand MD Essential hypertension (Primary Dx); Hyperlipidemia LDL goal <100; Palpitations; RBBB; Mitral valve disorder; Recurrent syncope; Left carotid bruit 03/28/2025 7:00 AM CDT Ancillary Procedure [facility] [address] [place] [address] [place] [phone] Status post placement of implantable loop recorder (Primary Dx); Palpitations; RBBB from Last 3 Months Medical History Medical [...] on file Legal Sex Female 4:11 PM PRINCIPAL CONSULTANT Gender Identity Female 03/01/2025 7:05 PM CDT Sexual Orientation Straight 03/01/2025 7: 05 PM CDT Obstetrics History Last Filed Vital Signs Vital Sign Reading Time Taken Comments Blood Pressure 110/52 04/27/2025 1:57 PM CDT Pulse 86 04/27/2025 1:57 PM CDT Temperature 36.2 C (97.1 F) 08/17/2020 10:07 AM CDT Respiratory Rate 16 07/31/2020 1:14 PM CDT Oxygen Saturation 95% 04/27/2025 1:57 PM CDT Inhaled Oxygen Concentration - - Weight 68.5 kg (151 lb) 04/27/2025 1:57 PM CDT Height 154.9 cm (5' 1) 04/27/2025 1:57 PM CDT Body Mass Index 28.53 04/27/2025 1:57 PM CDT Plan of Treatment Health Maintenance Due [...] Td or Tdap) 09/06/2024 09/06/2014 Influenza Vaccine (#1) 2025 , 08/18/2022, 08/05/2021, Additional history exists Procedures Procedure Name Priority Date/Time Associated Diagnosis Comments US CAROTIDS DUPLEX BILATERAL Schedule Routine, Read Routine (OP Routine) 05/12/2025 2:26 PM CDT Left carotid bruit DEVICE CHECK - REMOTE Routine 05/10/2025 9:03 AM CDT Status post placement of implantable loop recorder Recurrent syncope DEVICE CHECK - REMOTE Routine 03/29/2025 5:18 PM CDT Palpitations RBBB from Last 3 Months Results * US Carotids Duplex Bilateral (05/12/2025 2:26 PM CDT) Anatomical Region Laterality Modality Vascular Bilateral Ultrasound 05/12/2025 1:57 PM CDT Narrative 05/13/2025 8:39 AM CDT Vascular & Vein Surgery [address] [facility] [place] [address] Carotid Duplex Ultrasound Report Patient Name: ROSAURA GODOY G : 1945 (79y 5m) Study Date: 05/12/2025 1:57:26 PM Gender: F Product Steward: MERT Location: [facility] Ref Provider: ELVIRA HAND Quality: Adequate Order Provider: ELVIRA HAND PROCEDURES: Carotid Report: Carotid duplex examination of the extracranial arteries was performed using 2D, color and spectral Doppler. INDICATIONS: Lt carotid bruit. HISTORY: HTN. HLD. COMPARISONS: No previous exams. MEASUREMENTS: Right Value Left Value RT Prox CCA PSV 85 cm/sec LT Prox CCA PSV 131 cm/sec RT Prox CCA EDV 7 cm/sec LT Prox CCA EDV 15 cm/sec RT Distal CCA PSV 69 cm/sec LT Distal CCA PSV 69 cm/sec RT Distal CCA EDV 10 cm/sec LT Distal CCA EDV 15 cm/sec RT Prox ICA PSV 78 cm/sec LT Prox ICA PSV 104 cm/sec RT Prox ICA EDV 13 cm/sec LT Prox ICA EDV 19 cm/sec RT Mid ICA PSV 81 cm/sec LT Mid ICA PSV 84 cm/sec RT Mid ICA EDV 17 cm/sec LT Mid ICA EDV 22 cm/sec RT Distal ICA PSV 78 cm/sec LT Distal ICA PSV 129 cm/sec RT Distal ICA EDV 16 cm/sec LT Distal ICA EDV 32 cm/sec RT ECA Prx PSV 81 cm/sec LT ECA Prx PSV 83 cm/sec RT ICA/CCA 1.17 ratio LT ICA/CCA 1.87 ratio Rt Vert Dst PSV 53 cm/sec Lt Vert Dst PSV 55 cm/sec FINDINGS: Rt Common Carotid Artery: The plaque in the right CCA appears to be heterogeneous. Rt Internal Carotid Artery: The plaque in the right internal carotid artery appears to be heterogeneous and smooth. Atherosclerotic changes of the right internal carotid artery without hemodynamically significant Doppler findings. <50% stenosis. Rt External Carotid Artery: Patent right external carotid artery with evidence of atherosclerotic disease present. Rt Vertebral Artery: The right vertebral artery is patent with antegrade flow. Lt Common Carotid Artery: Duplex imaging of the left common carotid artery is within normal limits without evidence of atherosclerotic disease. Lt Internal Carotid Artery: The plaque in the left internal carotid artery appears to be heterogeneous, calcified and irregular. Significant atherosclerotic changes of the left internal carotid artery with elevated peak systolic velocity and end diastolic velocity, as above. 50-69% stenosis. Lt External Carotid Artery: Patent left external carotid artery with evidence of atherosclerotic disease present. Lt Vertebral Artery: The left vertebral artery is patent with antegrade flow. Comments: Brachial artery systolic blood pressure is 126 on the right, 130 on the left. Unable to visualize a 0.34 cm segment of the left proximal ICA due to calcific shadowing. CONCLUSIONS: 1. The right internal carotid artery disease is consistent with a less than 50% stenosis. 2. The left internal carotid artery disease is consistent with moderate 50-69% stenosis. 3. Normal, antegrade flow is noted in bilateral vertebral arteries. ATTESTATION: I have reviewed and interpreted the pertinent images and measurements of this study. I attest to the conclusions in the final report that is provided above. Electronically Signed By: Jasson Abel MD 05/13/2025 7:26:41 AM CDT Procedure Note Jasson Abel MD - 05/13/2025 Vascular & Vein Surgery [address] [facility] [place] [address] Carotid Duplex Ultrasound Report Patient Name: ROSAURA GODOY G : 1945 (79y 5m) Study Date: 05/12/2025 1:57:26 PM Gender: F Product Steward: MERT Location: [facility]SE Ref Provider: ELVIRA HAND Quality: Adequate Order Provider: ELVIRA HAND PROCEDURES: Carotid Report: Carotid duplex examination of the extracranial arterieswas performed using 2D, color and spectral Doppler. INDICATIONS: Lt carotid bruit. HISTORY: HTN. HLD. COMPARISONS: No previous exams. MEASUREMENTS: Right Value Left Value RT Prox CCA PSV 85 cm/sec LT Prox CCA PSV 131 cm/sec RT Prox CCA EDV 7 cm/sec LT Prox CCA EDV 15 cm/sec RT Distal CCA PSV 69 cm/sec LT Distal CCA PSV 69 cm/sec RT Distal CCA EDV 10 cm/sec LT Distal CCA EDV 15 cm/sec RT Prox ICA PSV 78 cm/sec LT Prox ICA PSV 104 cm/sec RT Prox ICA EDV 13 cm/sec LT Prox ICA EDV 19 cm/sec RT Mid ICA PSV 81 cm/sec LT Mid ICA PSV 84 cm/sec RT Mid ICA EDV 17 cm/sec LT Mid ICA EDV 22 cm/sec RT Distal ICA PSV 78 cm/sec LT Distal ICA PSV 129 cm/sec RT Distal ICA EDV 16 cm/sec LT Distal ICA EDV 32 cm/sec RT ECA Prx PSV 81 cm/sec LT ECA Prx PSV 83 cm/sec RT ICA/CCA 1.17 ratio LT ICA/CCA 1.87 ratio Rt Vert Dst PSV 53 cm/sec Lt Vert Dst PSV 55 cm/sec FINDINGS: Rt Common Carotid Artery: The plaque in the right CCA appears to beheterogeneous. Rt Internal Carotid Artery: The plaque in the right internal carotidartery appears to be heterogeneous and smooth. Atherosclerotic changes of the right internalcarotid artery without hemodynamically significant Doppler findings. <50% stenosis. Rt External Carotid Artery: Patent right external carotid artery withevidence of atherosclerotic disease present. Rt Vertebral Artery: The right vertebral artery is patent with antegradeflow. Lt Common Carotid Artery: Duplex imaging of the left common carotid arteryis within normal limits without evidence of atherosclerotic disease. Lt Internal Carotid Artery: The plaque in the left internal carotid arteryappears to be heterogeneous, calcified and irregular. Significant atheroscleroticchanges of the left internal carotid artery with elevated peak systolic velocity and enddiastolic velocity, as above. 50-69% stenosis. Lt External Carotid Artery: Patent left external carotid artery withevidence of atherosclerotic disease present. Lt Vertebral Artery: The left vertebral artery is patent with antegradeflow. Comments: Brachial artery systolic blood pressure is 126 on the right, 130on the left. Unable to visualize a 0.34 cm segment of the left proximal ICA due tocalcific shadowing. CONCLUSIONS: 1. The right internal carotid artery disease is consistent with a lessthan 50% stenosis. 2. The left internal carotid artery disease is consistent with [id number]% stenosis. 3. Normal, antegrade flow is noted in bilateral vertebral arteries. ATTESTATION: I have reviewed and interpreted the pertinent images and measurements ofthis study. I attest to the conclusions in the final report that is provided above. Electronically Signed By: Jasson Abel MD 05/13/2025 7:26:41 AM CDT us Elvira Hand MD IMG US PROCEDURES Final R esult * DEVICE CHECK - REMOTE (05/10/2025 9:03 AM CDT) Anatomical Region Laterality Modality Other Narrative 05/30/2025 8:13 AM CDT Medtronic Loop Recorder. Dx: Syncope and palpitations Monitoring period: 28-Mar-2025 to 09-May-2025 Routine ILR remote. Normal device function. Battery function OK. Presenting rhythm: VS at 70 bpm Medications: Diovan HCT -among others Since last scheduled remote - no detections/events See scanned report. Next check: 42 day remote HUBER Castillo Device Specialist Elvira Hand MD [facility] C[facility] SERVICES PROCE DURES Final Result * DEVICE CHECK - REMOTE (03/29/2025 5:18 PM CDT) Anatomical Region Laterality Modality Other Narrative 05/24/2025 12:34 PM CDT Medtronic LNQ22 Loop Recorder. Dx; Syncope, Palpitations. DOI 01/27/2023-Nila. Carelink remote monitoring. Routine ILR remote. Normal device function. Battery function-good. Presenting rhythm: NSR Medications: Diovan HCT 80-12.5 mg Counters since last scheduled transmission on 02/14/25. No auto or patient recorded episodes noted. See scanned report. CareLink remote f/u 05/09/25. Jayson Reyes RN Elvira Hand MD CV CARDIAC SERVICES PROCE DURES Final Result from Last 3 Months Insurance [employer] MEDICARE [facility] MEDICARE Care Teams Mine Captain Relationship Specialty Start Date End Date Taryn Ball MD [address] [place] [address] PCP - General Internal Medicine 07/31/20
--- OUTSIDE RECORDS SUMMARY | 2025-06-14 08:00 | XMS_ITS | Continuity of Care Document ---
Author Organization [facility] Address [address] [place] [address] [address] [place] [address] Phone Care Team Providers Care [facility] Name Role Phone Ponce OD, Nitin Unavailable Unavailable Advance Directives Directive Yes / No Effective Date File Name No Information Encounters Encounter Description Practice Location Reason(s) For Visit Diagnoses Date Provider Providers Copied on Encounter [facility], [address], [place], [place], [id number], [place] tel:[phone] [facility] No Information Sep-2 9-200 5 Ponce OD Nitin. [address] , [address], [place], [address], [place]. tel:[phone] Family History Family Member Type Diagnosis Age [...]
--- OUTSIDE RECORDS SUMMARY | 2025-06-14 08:00 | XMS_ITS | Clinical Summary ---
Author Organization [facility] Address [address] [facility] [address] [place] [address] Phone Care Team Providers Care Community Living Instructor Name Role Phone Gabriella Hein APRN, DROSOPHERE OPERATOR Unavailable [phone] Nitin Estrada DO Unavailable [phone] Amanda Ball MD Primary Care Provider Allergies [...] 9:30 AM CDT Height 158.8 cm (5' 2.5) 06/01/2018 9:30 AM CDT Body Mass Index 28.8 06/01/2018 9:30 AM CDT Plan of Treatment Health Maintenance Due Date Last Done Comments Hepatitis C Virus (HCV) Screening 1945 Mammogram 1955 Zoster Immunization (2 of 3) 10/04/2015 08/09/2015 Respiratory Syncytial Virus (RSV) Immunization (Adult) (1 - 1-dose 75+ series) 2019 Pneumococcal Immunization (50+ years) (3 of 3 - PCV20 or PCV21) 12/15/2022 12/15/2017, 09/18/2006 SARS-COV-2 Immunization (4 - season) 2024 08/04/2021, 12/22/2020, 11/29/2020 Influenza Immunization (#1) 07/04/202508/03, 08/22/2019, 08/22/2018, Additional history exists DTaP/Tdap/Td Immunization Discontinued 09/06/2014 TdaP Immunization Completed 09/06/2014 Pneumococcal Immunization Combined Discontinued 12/15/2017, 09/18/2006 Colonoscopy Discontinued 11/04/2019, 11/03, 04/06/2015 Colorectal Cancer Screening Discontinued Cologuard Discontinued Hepatitis B Immunization Aged Out No longer eligible based on patient's age to complete this topic Human Papillomavirus (HPV) Immunization Aged Out No longer eligible based [...] Recently Relevant to Health Maintenance Care Teams Community Living Instructor Relationship Specialty Start Date End Date Amanda Ball MD [address] [place] [address] PCP - General Internal Medicine 11/14/17 Gabriella Hein, PSYCHOLOGIST CHIEF, DROSOPHERE OPERATOR Nurse Practitioner Advanced Practice Nurse 09/05/16 Nitin Estrada DO Gastroenterology 11/14/17
--- OUTSIDE RECORDS SUMMARY | 2025-06-14 08:00 | XMS_ITS | Encounter Summary ---
Author Organization [facility] Address [address] [facility] [place] [address] Care Team Providers Care Biochemistry Specialist Name Role Phone Sharath Stock MD Primary Care Provider [phone] Encounter Details Date Type Department Care Team (Late st Contact Info) Description 05/26/2019 Lab Requisition [facility] Care DermPath Lab [address] [facility] [place] [phone] Jayson Pena MD [place] [address] Social History Tobacco Use Types Packs/Day Years Used Date Smoking Tobacco: Never Smokeless Tobacco: Never Alcohol Use Standard Drinks/Week Comments No 0 (1 standard drink = 0.6 oz pur e alcohol) Comments Unknown Sex and Gender Information Value Date Recorded Sex Assigned at Not on file Legal Sex Female 5:49 PM LAPPER Gender Identity Not on file Sexual Orientation Not on file documented as of this encounter Plan of Treatment Not on file documented as of this encounter Procedures Procedure Name Priority Date/Time Associated Diagnosis Comments DERMATOPATHOLOGY Routine 05/25/2019 12:0 0 AM CDT documented in this encounter Results * DERMATOPATHOLOGY (05/25/2019 12:00 AM CDT) Case Report Dermatopathology Report Case: [id number] Authorizing Provider: Jayson Pena MD Collected: 05/25/2019 12:00 AM Pathologist: Bernice Hoang MD Received: 05/26/2019 12:41 PM Specimens: A) - Skin, right post trapezius neck B) - Skin, left upper back paraspinal C) - Skin, left post shoulder 4:03 PM CDT DERMATOPATHOLOGY LABORATORY Final Diagnosis Specimen A. SKIN, right post trapezius neck: LICHEN PLANUS-LIKE KERATOSIS (BENIGN LICHENOID KERATOSIS) (L82.1) Specimen B. SKIN, left upper back paraspinal: LICHEN PLANUS-LIKE KERATOSIS (BENIGN LICHENOID KERATOSIS) (L82.1) (see microscopic description) Specimen C. SKIN, left post shoulder: LICHEN PLANUS-LIKE KERATOSIS (BENIGN LICHENOID KERATOSIS) (L82.1) 4:03 PM T DERMATOPATHOLOGY LABORATORY at 1603 CDT Clinical History A-C: R/O BCC. 4:03 PM CDT DERMATOPATHOLOGY LABORATORY Gross Description Specimen A: Received is one formalin filled container labeled with the patient's name and designated right post trapezius neck. The specimen consists of a shave biopsy measuring [id number]. Jar 0. Specimen B: Received is one formalin filled container labeled with the patient's name and designated left upper back paraspinal. The specimen consists of a shave biopsy measuring [id number]. Jar 0. Specimen C: Received is one formalin filled container labeled with the patient's name and designated left post shoulder. The specimen consists of a shave biopsy measuring [id number]. Jar 0. 4:03 PM T DERMATOPATHOLOGY LABORATORY Microscopic Description Specimen A. SKIN, [...] keratinocytes and scattered necrotic keratinocytes. 4:03 PM CDT DERMATOPATHOLOGY LABORATORY Disclaimer An external and internal positive and negative controls are appropriate for the histochemical, immunohistochemical and immunofluorescence stain(s) in this case (if any), except where stated explicitly. The performance characteristics of the stain(s) cited in this report were developed and its performance characteristic determined by the Dermatopathology Laboratory at [facility], directed by Dr. Michael Estevez. These tests need not be, and therefore are not, approved by the [place] Food and Drug Administration. The tests are used for clinical purposes. Billing Codes Specimen Charges Stain Charges 43184 95121 [id number] 1 1 1 9 4:03 PM CDT [...] PATHOLOGY/CYTOLOGY ORD ERABLES Final Result DERMATOPATHOLOGY LABORATORY [facility] - Department of Dermatology [facility], 5th Floor Lab [address] [phone] documented in this encounter Visit Diagnoses Not on filedocumented in this encounter Care Teams Biochemistry Specialist Relationship Specialty Start Date End Date Sharath Stock MD PCP - General 04/05/09 documented as of this encounter
--- OUTSIDE RECORDS SUMMARY | 2025-06-14 08:00 | XMS_ITS | Clinical Summary ---
Author Organization [facility] Address [address] [facility] [place] [address] Care Team Providers Care Motor Setter Name Role Phone Sharath Stock MD Primary Care Provider [phone] Source Comments [facility],non-owned Affiliates and Associated Physician Practices is amultiple site organization consisting of ambulatory clinics and hospital sitesin [place], [place], [place] and [place]. This disclosure is being madepursuant to the Care Everywhere program and may not contain all information available regarding this patient. 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
[2025-06-14 08:25] LABS: Hematocrit 34.5 % (37.0-47.0); Hemoglobin 10.8 g/dL (12.0-15.0); Immature Granulocyte Percent A 0.7 % (0-0.5); Lymphocytes Absolute Auto 1.31 K/mm3 (0.9-3.2); Mean Corpuscular HGB Conc 31.3 g/dl (32-36); Mean Corpuscular Hemoglobin 30.3 pg (26-34); Mean Corpuscular Volume 96.6 fl (80-100); Nucleated Red Blood Cells Absolute Auto 0.000 K/mm3 (0.0-0.012); Nucleated Red Blood Cells Perc 0.0 % (0.0-0.2); Platelet Count Result 236 k/mm3 (150-375); Red Blood Count 3.57 M/mm3 (4.2-5.4); White Blood Count 4.6 K/mm3 (4.5-10.0)
[2025-06-14 08:49] LABS: Alanine Aminotransferase 24 U/L (6-35); Albumin Level 4.1 g/dL (3.5-5.1); Alkaline Phosphatase 101 U/L (38-126); Anion Gap 9 mmol/L (4-12); Aspartate Amino Transferase 33 U/L (14-36); Bilirubin,Total 0.6 mg/dL (0.2-1.3); Blood Urea Nitrogen 18 mg/dL (7-17); Calcium 9.4 mg/dL (8.4-10.2); Carbon Dioxide 25 mmol/L (22-30); Chloride 102 mmol/L (98-107); Cholesterol 180 mg/dL (0-200); Estimated Glomerular Filt Rate 55; Glucose 93 mg/dL (65-110); HDL Direct 50 mg/dL; Potassium 4.0 mmol/L (3.4-5.0); Sodium 136 mmol/L (137-145); Total Protein 7.9 g/dL (6.3-8.2); Triglycerides 88 mg/dL (<150)
== END 2025-06-14 07:56 | disposition home or self-care (01) ==
PROVIDERS: PCP Internal Medicine; Visit Provider Internal Medicine
DX: E78.5 Hyperlipidemia, unspecified (principal); E55.9 Vitamin D deficiency, unspecified
CPT/HCPCS: 36415; 80053; 80061; 82306; 85025

== ENCOUNTER 2025-08-19 12:03 | Outpatient (CLI) | payer MEDICARE, SELFPAY ==
--- NOTE | ~2025-08-19 | MM_ITS ---
EXAMINATION: MM screening doretha BI w constantino HISTORY: Screening TECHNIQUE: Craniocaudal and mediolateral oblique 3-D tomosynthesis images were obtained and synthetic 2-D images were generated. CAD analysis was submitted and interpreted. COMPARISON: 07/20/2024 BREAST PARENCHYMAL COMPOSITION: There are scattered areas of fibroglandular density. FINDINGS: There is no evidence of suspicious mass, calcification, or architectural distortion to suggest malignancy. There has been no suspicious interval change. Implantable loop recorder in the left breast which limits evaluation. IMPRESSION: 1. No mammographic evidence of malignancy. Recommend routine screening mammography in one year. BI-RADS Category 2: Benign finding(s) Reviewed, dictated and finalized at location Q. IMPRESSION: 1. No mammographic evidence of malignancy. Recommend routine screening mammogra phy in one year. BI-RADS Category 2: Benign finding(s)
== END 2025-08-19 12:04 | disposition home or self-care (01) ==
LOC: MICIMG 12:04
PROVIDERS: PCP Internal Medicine; Visit Provider Internal Medicine Hematology & Oncology
DX: Z12.31 Encounter for screening mammogram for malignant neoplasm of breast (principal)
CPT/HCPCS: 77063; 77067

== ENCOUNTER 2025-10-03 10:00 | Outpatient (CLI) | payer MEDICARE, SELFPAY ==
[2025-10-03 10:23] LABS: Hematocrit 35.4 % (37.0-47.0); Hemoglobin 11.2 g/dL (12.0-15.0); Immature Granulocyte Percent A 0.4 % (0-0.5); Lymphocytes Absolute Auto 1.49 K/mm3 (0.9-3.2); Mean Corpuscular HGB Conc 31.6 g/dl (32-36); Mean Corpuscular Hemoglobin 30.4 pg (26-34); Mean Corpuscular Volume 96.2 fl (80-100); Nucleated Red Blood Cells Absolute Auto 0.000 K/mm3 (0.0-0.012); Nucleated Red Blood Cells Perc 0.0 % (0.0-0.2); Platelet Count Result 256 k/mm3 (150-375); Red Blood Count 3.68 M/mm3 (4.2-5.4); White Blood Count 5.3 K/mm3 (4.5-10.0)
[2025-10-03 10:51] LABS: Alanine Aminotransferase 23 U/L (6-35); Albumin Level 4.4 g/dL (3.5-5.1); Alkaline Phosphatase 110 U/L (38-126); Anion Gap 8 mmol/L (4-12); Aspartate Amino Transferase 35 U/L (14-36); Bilirubin,Total 0.9 mg/dL (0.2-1.3); Blood Urea Nitrogen 22 mg/dL (7-17); Calcium 9.8 mg/dL (8.4-10.2); Carbon Dioxide 26 mmol/L (22-30); Chloride 102 mmol/L (98-107); Cholesterol 217 mg/dL (0-200); Estimated Glomerular Filt Rate 57; Glucose 88 mg/dL (65-110); HDL Direct 61 mg/dL; Potassium 3.8 mmol/L (3.4-5.0); Sodium 136 mmol/L (137-145); Total Protein 8.6 g/dL (6.3-8.2); Triglycerides 83 mg/dL (<150)
--- OUTSIDE RECORDS SUMMARY | 2025-10-03 11:10 | XMS_ITS | Encounter Summary ---
Author Organization [facility] Address [address] [facility] [place] [address] Care Team Providers Care Extension Service Supervisor Name Role Phone Sharath Stock MD Primary Care Provider [phone] Encounter Details Date Type Department Care Team (Late st Contact Info) Description 05/26/2019 Lab Requisition [facility] Care DermPath Lab [address] [facility] [place] [phone] Jayson Pena [place] [address] Social History Tobacco Use Types Packs/Day Years Used Date Smoking Tobacco: Never Smokeless Tobacco: Never Alcohol Use Standard Drinks/Week Comments No 0 (1 standard drink = 0.6 oz pur e alcohol) Comments Unknown Sex and Gender Information Value Date Recorded Sex Assigned at Not on file Legal Sex Female 5:49 PM CUFFER Gender Identity Not on file Sexual Orientation Not on file documented as of this encounter Plan of Treatment Not on file documented as of this encounter Procedures Procedure Name Priority Date/Time Associated Diagnosis Comments DERMATOPATHOLOGY Routine 05/25/2019 12:0 0 AM CDT documented in this encounter Results * DERMATOPATHOLOGY (05/25/2019 12:00 AM CDT) Case Report Dermatopathology Report Case: [id number] Authorizing Provider: Jayson Pena MD Collected: 05/25/2019 [...] specimen consists of a shave biopsy measuring [id number]. Jar 0. Specimen B: Received is one formalin filled container labeled with the patient's name and designated left upper back paraspinal. The specimen consists of a shave biopsy measuring [id number]. Jar 0. Specimen C: Received is one formalin filled container labeled with the patient's name and designated left post shoulder. The specimen consists of a shave biopsy measuring [id number]. Jar 0. 4:03 PM T DERMATOPATHOLOGY LABORATORY [...] characteristic determined by the Dermatopathology Laboratory at [facility], directed by Dr. Michael Estevez. These tests need not be, and therefore are not, approved by the [place] Food and Drug Administration. The tests are used for clinical purposes. Billing Codes Specimen Charges Stain Charges 63094 [id number] [id number] 1 1 1 9 4:03 PM CDT [...] PATHOLOGY/CYTOLOGY ORD ERABLES Final Result DERMATOPATHOLOGY LABORATORY [facility] - Department of Dermatology [facility], 5th Floor Lab [address] [phone] documented in this encounter Visit Diagnoses Not on filedocumented in this encounter Care Teams Extension Service Supervisor Relationship Specialty Start Date End Date Sharath Stock MD PCP - General 04/05/09 documented as of this encounter
--- OUTSIDE RECORDS SUMMARY | 2025-10-03 11:10 | XMS_ITS | Clinical Summary ---
Author Organization [facility] Address [address] [facility] [address] [place] [address] Phone Care Team Providers Care Bag Inspector Name Role Phone Gabriella Hein APRN, HEEL CEMENTER MACHINE Unavailable [phone] Nitin Estrada DO Unavailable [phone] Amanda Ball MD Primary Care Provider [...] PCV21) 12/15/2022 12/15/2017, 09/18/2006 Influenza Immunization (#1) 07/04/202508/03, 08/22/2019, 08/22/2018, Additional history exists SARS-COV-2 Immunization ( season) 2025 08/04/2021, 12/22/2020, 11/29/2020 DTaP/Tdap/Td Immunization Discontinued 09/06/2014 [...] Recently Relevant to Health Maintenance Care Teams Bag Inspector Relationship Specialty Start Date End Date Amanda Ball MD [address] [place] [address] PCP - General Internal Medicine 11/14/17 Gabriella Hein, [employer], HEEL CEMENTER MACHINE Nurse Practitioner Advanced Practice Nurse 09/05/16 Nitin Estrada DO Gastroenterology 11/14/17
--- OUTSIDE RECORDS SUMMARY | 2025-10-03 11:10 | XMS_ITS | Clinical Summary ---
Author Organization [facility] Address [address] [place] [id number] Care Team Providers Care Stereo Map Plotter Operator Name Role Phone Taryn Ball MD Primary Care Provide r Allergies Active Allergy Reactions Criticality Noted Date Comments Codeine Swelling,Angioedema High 05/21/2012 Swelling around eyes, Swelling around eyes, Swelling around eyes face Swelling around eyes Swelling around eyes, Swelling around eyes, Swelling around eyes Other reaction(s): Facial Swelling Xztjafks-Odgttczxdg-X olymyxin Rash Medium 05/21/2012 Medications valsartan-hydro CHLOROthiazide [...] Encounters Date Type Department Care Team Description 09/12/2025 7:30 AM 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 AND HRIS ANALYST Ancillary Procedure [facility] Cardiology [address] [place] [address] Palpitations (Primary Dx); Status post placement of implantable loop recorder; Recurrent syncope 08/01/2025 7:45 AM CDT Ancillary Procedure [facility] Cardiology [address] [phone] Palpitations (Primary Dx); Status post placement of implantable loop recorder; Recurrent syncope from Last 3 Months Medical History Medical [...] on file Legal Sex Female 4:11 PM 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 AND 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 ANALYST Gender Identity Female 03/01/2025 7:05 PM CDT Sexual Orientation Straight 03/01/2025 7: 05 PM CDT Last Filed Vital Signs Vital Sign Reading [...] 09/18/2006 Osteoporosis Screening-Bone Density Scan 05/27/2024 05/27/2022 DTaP/Tdap/Td Vaccine (2 - Td or Tdap) 09/06/2024 09/06/2014 Covid-19 Vaccine (4 - 2024-2 6 season) 2025 08/04/2021, 12/22/2020, 11/29/2020 Influenza Vaccine (#1) 2025 , 08/18/2022, 08/05/2021, Additional history exists Procedures Procedure Name Priority Date/Time Associated Diagnosis Comments DEVICE CHECK - REMOTE Routine 09/12/2025 2:51 PM 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 AND HRIS ANALYST Status post placement of implantable loop recorder Recurrent syncope DEVICE CHECK - REMOTE Routine 08/01/2025 2:06 PM CDT Status post placement of implantable loop recorder Recurrent syncope from Last 3 Months Results * DEVICE CHECK - REMOTE (09/12/2025 2:51 PM 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 AND HRIS ANALYST) Anatomical Region Laterality Modality Other Narrative 09/13/2025 8:53 AM 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 AND HRIS ANALYST pfwaterworkstronic [id number] Loop Recorder. Dx; Syncope, Palpitations. DOI 01/27/2023-Nila. Carelink remote monitoring. Routine ILR remote. Normal device function. Battery function-good. Presenting rhythm: NSR Medications: Diovan HCT 80-12.5 mg Counters since last scheduled transmission on 08/01/25. No auto or patient recorded episodes noted. See scanned report. [facility] remote f/u 10/24/25. Jayson Reyes, RN us Aron Joshi MD [facility] Final Result * DEVICE CHECK - REMOTE (08/01/2025 2:06 PM CDT) Anatomical Region Laterality Modality Other Narrative 08/17/2025 2:08 PM CDT [employer]onic [id number] Loop Recorder. Dx; Syncope, Palpitations. DOI 01/27/2023-Nila. Routine ILR remote. Normal device function. Battery function-good. Presenting rhythm: NSR Medications: Diovan HCT 80-12.5 mg Counters since last scheduled transmission on 06/20/25. No auto or patient recorded episodes noted. See scanned report. [facility] remote f/u 09/12/25. Jayson Reyes, MASTER Aron Joshi MD [facility] C[facility] SERVICES PROCE [facility] Final Result from Last 3 Months Insurance [facility] MEDICARE T MEDICARE Care Teams Stereo Map Plotter Operator Relationship Specialty Start Date End Date Taryn Ball MD [address] [place] [address] PCP - General Internal Medicine 07/31/20
--- OUTSIDE RECORDS SUMMARY | 2025-10-03 11:10 | XMS_ITS | Clinical Summary ---
Author Organization [facility] Address [address] [place] [address] Care Team Providers Care Certified Pedorthotist Name Role Phone Sharath Stock MD Primary Care Provider [phone] Source Comments [facility],non-owned Affiliates and Associated Physician Practices is amultiple site organization consisting of ambulatory clinics and hospital sitesin [place], [place], [place] and [place]. This disclosure is being madepursuant to the Care Everywhere program and may not contain all information available regarding this patient. 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 Gender Identity Not on file Sexual Orientation Not on file Plan of Treatment Health Maintenance Due Date Last Done Comments BONE DENSITY TESTING 1944 DTAP/TDAP/TD VACCINES (1 - Tdap) 1963 PNEUMOCOCCAL VACCINE 50+ (1 of 1 - PCV) 1994 ZOSTER VACCINE (1 of 2) 1994 Respiratory Syncytial Virus (RSV) Vaccine Pt: or over 60 yrs (1 - 1-dose 75+ series) 2019 DEPRESSION SCREENING 11/03/2024 COVID-19 VACCINE ( - 2024-2 6 season) 2025 INFLUENZA VACCINE (#1) 2025 HEPATITIS B VACCINE [...] to complete this topic Insurance MEDICARE [place] [id number] Care Teams Certified Pedorthotist Relationship Specialty Start Date End Date Sharath Stock MD PCP - General 04/05/09
--- OUTSIDE RECORDS SUMMARY | 2025-10-03 11:10 | XMS_ITS | Clinical Summary ---
Author Organization [facility] Address [address] [place] [address] [place] [address] Care Team Providers Care Public Employment Mediator Name Role Phone Amanda Ball MD Primary Care Provider Allergies Active Allergy Reactions Criticality Noted Date Comments Adhesive Rash Low Codeine Swelling,Angioedema High 05/21/2012 Swelling around eyes Swelling around eyes, Swelling around eyes, Swelling around eyes Swelling around eyes, Swelling around eyes, Swelling around eyes face Swelling around eyes Swelling around eyes, Swelling around eyes, Swelling around eyes Other reaction(s): Facial Swelling Vayxtomn-Pqczxumxwq-M olymyxin Rash Medium 05/21/2012 Neomycin-Bacitracnzn- Polymyxnb Rash Low 09/05/2016 Medications Glucosamine-Chondr oit-Vit C-Mn 816-856-67-5 mg Tablet 2 times daily. Activ e fluticasone (FLONASE) 50 mcg/spray [place], Suspension Administer 1 [place] in each nostril 1 time daily as [...] Encounters Date Type Department Care Team Description 08/31/2025 External Device Data [facility] ABSTRACTION Provider, Abstract 08/31/2025 External Device Data [facility] ABSTRACTION Provider, Abstract 08/23/2025 External Device Data [facility] ABSTRACTION Provider, Abstract 08/23/2025 Orders Only [facility] Oncology and Hematology - [place] [address] [address] Clifton Monterroso MD 07/05/2025 External Device Data [facility] ABSTRACTION Provider, Abstract [...] Description 02/27/2026 10:00 AM CDT Office Visit [facility] Oncology and Hematology - [place] [address] [facility] [address] [facility] [address] [place] [address] Clifton Monterroso MD [address] [facility] [address] [place] [address] Health Maintenance Due Date Last Done Comments OSTEOPOROSIS SCREENING 2009 ZOSTER VACCINE (2 of 3) 10/05/2015 08/10/2015, 08/09 RSV VACCINE (60+ or ) (1 - 1-dose 75+ series) 2019 PNEUMOCOCCAL VACCINE 50+ YEA RS (3 of 3 - PCV20 or PCV21) 12/15/2022 12/15/2017, 09/18/2006 DTAP/TDAP/TD VACCINES (2 - T d or Tdap) 09/06/2024 09/06/2014 INFLUENZA VACCINE (#1) 2025 , 08/25/2023, 08/18/2022, Additional history exists COVID-19 Vaccine (8 - 2024-2 6 season) 2025 10/25/2024, 09/12/2023, 12/19/2022, Additional history exists COLORECTAL SCREENING Discontinued 11/04/2019, 11/03/19 20 Colorectal Cancer Screening Discontinued FIT-DNA Q 3 years Discontinued FIT/FOBT Q 1 year Discontinued Flex Sig/CT Colonography Q 5 years Discontinued Procedures Procedure Name Priority Date/Time Associated Diagnosis Comments MAMMO SCREENING BILAT Routine 08/19/2025 9:23 AM CDT from Last 3 Months Results * MAMMO SCREENING BILAT (08/19/2025 9:23 AM CDT) Anatomical Region Laterality Modality Breast Bilateral Mammography us Clifton Monterroso MD MAMMO ORDERABLES Final Result from Last 3 Months Insurance [employer] PPO MCR Care Teams Public Employment Mediator Relationship Specialty Start Date End Date Amanda Ball MD PCP - General Internal Medicine 04/30/18
[2025-10-03 11:29] LABS: Thyroid Stimulating Hormone 0.960 uIU/mL (0.465-4.680)
== END 2025-10-03 10:01 | disposition home or self-care (01) ==
PROVIDERS: PCP Internal Medicine; Visit Provider Internal Medicine
DX: E78.5 Hyperlipidemia, unspecified (principal); E55.9 Vitamin D deficiency, unspecified
CPT/HCPCS: 36415; 80053; 80061; 82306; 84443; 85025